=== PATIENT | male | born 1990 | race Caucasian/White ===

== ENCOUNTER 2017-07-21 12:33 | Inpatient (IN) | payer OTHER ==
[~2017-07-21] VITALS: Ht 182.9 cm; Wt 91.8 kg
[2017-07-21] MEDS ORDERED: SODIUM CHLORIDE 0.9% 1000ML 1,000 ML IV STA (13:08)
[2017-07-21] MEDS ORDERED: ONDANSETRON INJ 2 MG/ML 2 ML VIAL IV STA (13:26)
[2017-07-21 13:28] LABS: BASO % 0.2 %; BASO ABS # 0.02 K/uL (0-0.2); EOS % 0.2 %; EOS ABS # 0.03 K/uL (0-0.5); HEMATOCRIT 43.9 % (42-52); HEMOGLOBIN 15.8 g/dL (14.0-18.0); IG# 0.03 K/uL (0.00-0.02); LYMPH % 8.8 %; LYMPH ABS # 1.14 K/uL (1.2-3.4); MEAN CORPUSCULAR HEMOGLOBIN 27.7 pg (25-34); MEAN PLATELET VOLUME 8.8 fL (7.4-10.4); MONO ABS # 0.39 K/uL (0.11-0.59); NEUT % 87.6 %; NEUT ABS # 11.31 K/uL (1.4-6.5); PLATELET COUNT 240 K/uL (130-400); RED CELL DISTRIBUTION WIDTH CV 12.7 % (11.5-14.5); RED CELL DISTRIBUTION WIDTH SD 35.3 fL (36.4-46.3); WHITE BLOOD COUNT 12.92 K/uL (4.8-10.8)
--- NOTE | 2017-07-21 13:33 | EMERGENCY ROOM VISIT NOTE ---
History Report prepared by Nelida: Lindsey Barry Under the Supervision of: Dr. Kira Woodard M.D. First contact with patient: 13:08 Chief Complaint: SEIZURE Stated Complaint: SEIZURE Nursing Triage Summary: pt reports since thursday he has had fever. pt reports last night he felt dizzy. today pt reports he felt nauseated and continued dizziness. pt had witness seizure today lasting approx 30 seconds. pt reports hx of hydrocephalus with vp customer development shunt placed 2005. History of Present Illness The patient is a 26 year old male who presents to the Emergency Room following a seizure/syncopal episode that occurred shortly prior to arrival. The patient' s friend at bedside described the episode as the patient curling into a ball from a seated position and getting "really tight." There was no sporadic shaking. The friend estimates the episode lasted 30-60 seconds, and note that he started talking coherently about 1 minute after the episode resolved. The patient does not remember this episode at all. He is currently nauseous but has not vomited. The patient notes that he has been having fevers and headaches for the past week. 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 The syncopal episode occurred shortly after. 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 A total of 10 systems reviewed and were otherwise negative. Past Medical & Surgical Medical Problems: (1) Hypertensive emergency Hx of hydrocephalus with INSTRUMENT TECHNOLOGIST Shunt. Family History None discussed. Social History Smoking Status: Never Smoker Marital Status: single Housing Status: lives with friends Occupation Status: [employer] Current/Historical Medications Scheduled [Tylenol Caffene], 3 TABS PO UD Scheduled PRN Ibuprofen (Motrin), 400 MG PO Q6H PRN for Pain Allergies Coded Allergies: No Known Allergies (Unverified , 07/21/17) Physical Exam Vital Signs Date Time Temp Pulse Resp B/P (MAP) Pulse Ox O2 Delivery O2 Flow Rate FiO2 07/21/17 16:15 81 24 162/95 Room Air 07/21/17 14:19 85 18 175/128 100 Room Air 07/21/17 13:51 88 18 185/130 99 Room Air 07/21/17 12:42 99 Room Air 07/21/17 12:40 72 07/21/17 12:40 36.6 73 20 171/126 100 Room Air Physical Exam Vital signs reviewed. General: Well-appearing, anxious, 26 yo male, in no significant distress. HEENT: No scleral icterus, PERRLA, neck supple. Atraumatic. No meningeal signs. Cardiovascular: Regular rate and rhythm, no extra sounds. Pulmonary: Clear to auscultation bilaterally, normal work of breathing. Abdomen: Soft, nontender, nondistended, positive bowel sounds. Musculoskeletal: Atraumatic, no peripheral edema. Neurologic: Patient awake alert and oriented x 3, full strength in all 4 extremities. Cranial nerves 2 through 12 grossly intact. Skin: Warm, dry, no rash Medical Decision & Procedures ER Provider Diagnostic Interpretation: Radiology results as stated below per my review and radiologist interpretation: CHEST ONE VIEW PORTABLE CLINICAL HISTORY: Seizure, INSTRUMENT TECHNOLOGIST shunt COMPARISON STUDY: No previous studies for comparison. FINDINGS: Lung volumes are normal. No pneumothorax or pleural effusion is noted. Lungs are clear. Cardiac size is normal. Mediastinal contours are normal. There is no evidence for pulmonary edema. No INSTRUMENT TECHNOLOGIST shunt catheter is identified within the chest by radiography. IMPRESSION: 1. No acute cardiopulmonary findings. 2. No INSTRUMENT TECHNOLOGIST shunt catheter projecting over the chest. Electronically signed by: Bebeto Cyr M.D. 07/21/2017 1:38 PM Dictated Date/Time: 07/21/2017 1:[address] SCAN OF THE BRAIN WITHOUT IV CONTRAST CLINICAL HISTORY: Seizure. Ventricular shunt. COMPARISON STUDY: No priors. TECHNIQUE: Unenhanced axial CT scan of the brain is performed from the vertex to the skull base. A dose lowering technique was utilized adhering to the principles of ALARA. CT DOSE: 614.27 mGy.cm FINDINGS: Brain parenchyma: A left frontal approach ventricular catheter terminates in the frontal horn of the left lateral ventricle. The brain parenchyma is otherwise normal in appearance. There is no hemorrhage, mass effect, or evidence of acute territorial ischemia by CT criteria. Potter-white matter is preserved. No extra-axial fluid collection is seen. Ventricles, sulci, cisterns: Normal in configuration. Mild asymmetry of the the lateral ventricles is of doubtful significance. Intracranial vasculature: The visualized intracranial vasculature at the skull base is normal in appearance. Calvarium: There is a left frontal january hole. No destructive calvarial lesion is seen. Sinuses and mastoids: The visualized paranasal sinuses are clear. The mastoid air cells are well pneumatized. Orbits: The bony orbits are grossly intact. IMPRESSION: 1. A left frontal approach ventriculostomy catheter terminates in the frontal horn of the left lateral ventricle. There is no hydrocephalus. 2. There is no hemorrhage, mass effect, or evidence of acute territorial ischemia by CT criteria. Electronically signed by: Ramiro Urban M.D. 07/21/2017 1:48 PM Dictated Date/Time: 07/21/2017 1:45 PM Laboratory Results Test 07/21/17 13:19 07/21/17 14:14 07/21/17 14:39 07/21/17 16:15 Direct Bilirubin 0.1 mg/dl (0-0.2) Total Creatine Kinase 153 U/L (39-308) Thyroid Stimulating Hormone (TSH) 1.860 uIu/ml (0.300-4.500) Salicylates Level < 1.7 mg/dl (2.8-20) Ethyl Alcohol mg/dL < 3.0 mg/dl (0-3) Urine Color YELLOW Urine Appearance CLEAR (CLEAR) Urine pH 7.5 (4.5-7.5) Urine Specific Allen 1.013 (1.000-1.030) Urine Protein TRACE (NEG) Urine Glucose (UA) NEG (NEG) Urine Ketones 2+ (NEG) Urine Occult Blood NEG (NEG) Urine Nitrite NEG (NEG) Urine Bilirubin NEG (NEG) Urine Urobilinogen NEG (NEG) Urine Leukocyte Esterase NEG (NEG) Urine WBC (Auto) 0 /hpf (0-5) Urine RBC (Auto) 0-4 /hpf (0-4) Urine Hyaline Casts (Auto) 0 /lpf (0-5) Urine Epithelial Cells (Auto) 5-10 /lpf (0-5) Urine Bacteria (Auto) NEG (NEG) Urine Opiates Screen NEG (NEG) Urine Methadone, Qualitative NEG (NEG) Urine Barbiturates NEG (NEG) Urine Phencyclidine (PCP) Level NEG (NEG) Ur Amphetamine/Methamphetamine NEG (NEG) MDMA (Ecstasy) Screen NEG (NEG) Urine Benzodiazepines Screen NEG (NEG) Urine Cocaine Metabolite NEG (NEG) Urine Marijuana (THC) NEG (NEG) CSF Color COLORLESS CSF Appearance CLEAR CSF WBC 4 /uL (0-5) CSF RBC 52 /uL (0) CSF Xanthrochromic NO XANTHOCHROMIA CSF Cell Count Tube # 3 CSF Chemistry Tube # 2 CSF Glucose 55 mg/dl (40-70) CSF Total Protein 87.8 mg/dl (15.0-45.0) Date/Time Source Procedure Growth Status 07/21/17 16:15 Cerebral Spinal Fluid Gram Stain - Final Complete 07/21/17 16:15 Cerebral Spinal Fluid CSF Culture - Final NO GROWTH Complete Laboratory results per my review. Medications Administered Medications (Trade) Dose Ordered Sig/Griselda Route Start Time Stop Time Status Last Admin Dose Admin Sodium Chloride 1,000 ml @ 200 mls/hr Q5H STAT IV 07/21/17 13:08 07/21/17 18:07 DC 07/21/17 13:51 200 MLS/HR Promethazine HCl 12.5 mg/Sodium Chloride 50.5 ml @ 204 mls/hr NOW STAT IV 07/21/17 13:36 07/21/17 13:50 DC 07/21/17 13:50 204 MLS/HR Potassium Chloride (Klor-Con M10) 40 meq NOW STAT PO 07/21/17 14:01 07/21/17 14:02 DC 07/21/17 14:19 40 MEQ Hydralazine HCl (HydrALAZINE INJ) 10 mg NOW STAT IV. 07/21/17 14:03 07/21/17 14:04 DC 07/21/17 14:18 10 MG Promethazine HCl 12.5 mg/Sodium Chloride 50.5 ml @ 204 mls/hr NOW STAT IV 07/21/17 14:40 07/21/17 14:54 DC 07/21/17 15:00 204 MLS/HR Diphenhydramine HCl (Benadryl Inj) 25 mg NOW STAT IV 07/21/17 14:40 07/21/17 14:42 DC 07/21/17 14:59 25 MG Sodium Chloride 1,000 ml @ 500 mls/hr Q2H ONCE IV 07/21/17 15:30 07/21/17 17:29 DC 07/21/17 16:42 500 MLS/HR Lorazepam (Ativan Inj) 1 mg NOW STAT IV 07/21/17 16:02 07/21/17 16:10 DC 07/21/17 16:02 1 MG ECG Per My Interpretation Indication: syncope Rate (beats per minute): 80 Rhythm: normal sinus Findings: no acute ischemic change, no ectopy, other (QTC is 482) ED Course 1322: Past medical records reviewed. The patient was evaluated in room C12B. A complete history and physical examination was performed. 1308: Ordered Sodium Chloride 1000 mL @ 200 mL/hr IV. 1326: Ordered Zofran 4 mg IV. 1336: Ordered Promethazine HCl 50.5 mL @ 204 mL/hr IV. 1401: Ordered Potassium Chloride 40 meq PO. 1403: Ordered Hydralazine HCl 10 mg IV. Medical Decision Differential diagnosis: Etiologies such as vasovagal event, infection, hypoglycemia, electrolyte abnormalities, cardiac sources, intracerebral event, toxicologic, neurologic, as well as others were entertained. This pt was evaluated and appeared to be anxious and noted to be hypertensive. Pt c/o nausea and was given IV phenergan 12.5 mg. IVF were initiated. Pt was given hydralazine for HTN, IV phenergan for continued nausea. IV benadryl was administered for anxiolytic. Po potassium was ordered. Lab work and CT head are unrevealing. Pt CXR is clear. Episode today is questionable for seizure activity. The HTN is concerning. 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 Case was d/w the hospitalist service. Dr Avila of the hospitalist service will evaluate for further management. Blood Pressure Screening Patient's blood pressure: Elevated blood pressure Referred to hospitalist Impression Primary Impression: Seizure-like activity Additional Impressions: Hypertensive urgency INSTRUMENT TECHNOLOGIST (ventriculoperitoneal) shunt status Hypokalemia Critical Care I have personally spent greater than 35 minutes of critical care time in the direct management of this patient. This includes bedside care, interpretation of diagnostic studies, and testing, discussion with consultants, patient, and family members, and other required patient management activities. This 35 minutes is in excess of all separately billable procedures. Scribe Attestation The scribe's documentation has been prepared under my direction and personally reviewed by me in its entirety. I confirm that the note above accurately reflects all work, treatment, procedures, and medical decision making performed by me. Departure Information Patient Instructions [facility] Problem Qualifiers
[2017-07-21] MEDS ORDERED: PROMETHAZINE HCL INJ 12.5 MG in SODIUM CHLORIDE 0.9% 50ML 50 ML IV STA ×2 (13:36→14:40)
--- NOTE | 2017-07-21 13:39 | DIAGNOSTIC IMAGING REPORT ---
CHEST ONE VIEW PORTABLE CLINICAL HISTORY: Seizure, MEDICAL BILLING REPRESENTATIVE shunt COMPARISON STUDY: No previous studies for comparison. FINDINGS: Lung volumes are normal. No pneumothorax or pleural effusion is noted. Lungs are clear. Cardiac size is normal. Mediastinal contours are normal. There is no evidence for pulmonary edema. No MEDICAL BILLING REPRESENTATIVE shunt catheter is identified within the chest by radiography. IMPRESSION: 1. No acute cardiopulmonary findings. 2. No MEDICAL BILLING REPRESENTATIVE shunt catheter projecting over the chest. Electronically signed by: Bebeto Cyr M.D. 07/21/2017 1:38 PM Dictated Date/Time: 07/21/2017 1:36 PM
[2017-07-21 13:46] LABS: ALBUMIN 4.8 gm/dl (3.4-5.0); CREATININE 1.35 mg/dl (0.60-1.40)
--- NOTE | 2017-07-21 13:50 | DIAGNOSTIC IMAGING REPORT ---
CT SCAN OF THE BRAIN WITHOUT IV CONTRAST CLINICAL HISTORY: Seizure. Ventricular shunt. COMPARISON STUDY: No priors. TECHNIQUE: Unenhanced axial CT scan of the brain is performed from the vertex to the skull base. A dose lowering technique was utilized adhering to the principles of ALARA. CT DOSE: 614.27 mGy.cm FINDINGS: Brain parenchyma: A left frontal approach ventricular catheter terminates in the frontal horn of the left lateral ventricle. The brain parenchyma is otherwise normal in appearance. There is no hemorrhage, mass effect, or evidence of acute territorial ischemia by CT criteria. Potter-white matter is preserved. No extra-axial fluid collection is seen. Ventricles, sulci, cisterns: Normal in configuration. Mild asymmetry of the the lateral ventricles is of doubtful significance. Intracranial vasculature: The visualized intracranial vasculature at the skull base is normal in appearance. Calvarium: There is a left frontal january hole. No destructive calvarial lesion is seen. Sinuses and mastoids: The visualized paranasal sinuses are clear. The mastoid air cells are well pneumatized. Orbits: The bony orbits are grossly intact. IMPRESSION: 1. A left frontal approach ventriculostomy catheter terminates in the frontal horn of the left lateral ventricle. There is no hydrocephalus. 2. There is no hemorrhage, mass effect, or evidence of acute territorial ischemia by CT criteria. Electronically signed by: Ramiro Urban M.D. 07/21/2017 1:48 PM Dictated Date/Time: 07/21/2017 1:45 PM
[2017-07-21 13:57] LABS: TOTAL PROTEIN 8.7 gm/dl (6.4-8.2)
[2017-07-21] MEDS ORDERED: POTASSIUM CHLORIDE 10 MEQ TABCR PO STA (14:01)
[2017-07-21] MEDS ORDERED: HydrALAZINE HCL 20 MG/ML VIAL IV. STA (14:03)
[2017-07-21] MEDS ORDERED: [UNRECOGNIZED DRUG - OTHER] PO (14:18)
[2017-07-21] MEDS ORDERED: IBUP-1459 PO (14:18)
[2017-07-21] MEDS ORDERED: DiphenhydrAMINE HCL 50 MG/ML VIAL IV STA (14:40)
--- NOTE | 2017-07-21 15:06 | History and Physical ---
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 He has been feeling generally unwell with fever, chills, headache, mild neck pain, nausea, cough, nasal congestion and mild diarrhea for the past 3-4 days. He has been taking multiple over the counter cold and flu remedies during this time and admits to "probably taking too much" - these included DayQuil (acetaminophen, dextromethorphan and phenylephrine) and a mixture of caffeine, acetaminophen, aspirin and diphenhydramine. He admits to taking 75mg of diphenhydramine and x4 65mg of caffeine today but is unsure exactly how much he has taken of what over the past 3-4 days. 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 He saw him again after about an hour on another bench having not moved far and the patient had been vomiting. He offered to take him to [facility] but the patient could not walk to get there. He sat back down and then had a seizure-like activity lasting for 30-60 seconds. The friend describes this as flexion contractures of his upper and lower limb and curling up in a ball on the bench. He called 911 and laid the patient down on his side. He started talking coherently around 30-60 seconds after this. 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 He thinks he has had around 11 operations in total. The last one was in [address] Stephens at [facility]. He has not had any follow up since then. He reports having similar symptoms once sometime in [id number] when he was hospitalized for dehydration. In the ER he had a CT head which did not show any hydrocephalus. He has a mild WBC elevated. No objective fever. He nausea was treated with Zofran, Phenergan and diphenhydramine (excessive anti-histamine taken was not known at that time) . He was given NSS 200 MLS/HR for dehydration. He had an elevated blood pressure therefore referred as hypertensive urgency, treated with hydralazine 10mg IV in the ER. He currently feels slight numbness on the right side of his face. He feels like his tongue is tingling all over and he is slurring speech. He notes bright light in his peripheral vision worse on left eye than right. Past Medical/Surgical History PMHx Congenital hydrocephalus ventricular shunt Social History Smoking Status: Never Smoker Smokeless Tobacco Use: No Alcohol Use: none Drug Use: none Marital Status: single Allergies Coded Allergies: No Known Allergies (Unverified , 07/21/17) Home Medications Scheduled [Tylenol Caffene], 3 TABS PO UD Scheduled PRN Ibuprofen (Motrin), 400 MG PO Q6H PRN for Pain Review of Systems All systems reviewed and otherwise negative other than HPI Physical Exam Vital Signs Date Time Temp Pulse Resp B/P (MAP) Pulse Ox O2 Delivery O2 Flow Rate FiO2 07/21/17 14:19 85 18 175/128 100 Room Air 07/21/17 13:51 88 18 185/130 99 Room Air 07/21/17 12:42 99 Room Air 07/21/17 12:40 72 07/21/17 12:40 36.6 73 20 171/126 100 Room Air General Appearance: + moderate distress (agitated then falls asleep easily multiple times during the conversation) Head: normocephalic, atraumatic, + pertinent finding (left sided CLOTH DESIZING RANGE TENDER shunt noted ) Eyes: PERRL, EOMI ENT: + pertinent finding (dry mucus membranes) Neck: supple, no JVD, trachea midline Respiratory/Chest: lungs clear, normal breath sounds, no respiratory distress, no accessory muscle use Cardiovascular: regular rate, rhythm, no edema, no murmur, normal peripheral pulses Abdomen/GI: normal bowel sounds, non tender, soft Back: no CVA tenderness Extremities/Musculoskelatal: no calf tenderness, normal capillary refill, no pedal edema, normal range of motion Neurologic/Psych: alert (but drowsy and falling alseep multiple times throughout the conversation), normal reflexes (biceps and knee), oriented x 3, + abnormal filler shredder helper II-XII (subjective numbness on right V1 distribution otherwise unremarkable but limited examination due to drowsiness), + motor weakness ( bilateral finger adduction, thumb abduction/opposition 4/5 otherwise 5/5 upper and lower limb power), + sensory deficit (right side of face in V1 distribution) , + pertinent finding (limited examination due to focus of the patient, speech examination is normal) Skin: no rash, + diaphoresis (flushing of his face and shoulders) Lymphatic: no adenopathy Diagnostics Laboratory Results Results Past 24 Hours Test 07/21/17 13:19 07/21/17 14:14 07/21/17 14:39 Range/Units White Blood Count 12.92 4.8-10.8 K/uL Red Blood Count 5.70 4.7-6.1 M/uL Hemoglobin 15.8 14.0-18.0 g/dL Hematocrit 43.9 42-52 % Mean Corpuscular Volume 77.0 80-100 fL Mean Corpuscular Hemoglobin 27.7 25-34 pg Mean Corpuscular Hemoglobin Concent 36.0 32-36 g/dl Platelet Count 240 130-400 K/uL Mean Platelet Volume 8.8 7.4-10.4 fL Neutrophils (%) (Auto) 87.6 % Lymphocytes (%) (Auto) 8.8 % Monocytes (%) (Auto) 3.0 % Eosinophils (%) (Auto) 0.2 % Basophils (%) (Auto) 0.2 % Neutrophils # (Auto) 11.31 1.4-6.5 K/uL Lymphocytes # (Auto) 1.14 1.2-3.4 K/uL Monocytes # (Auto) 0.39 0.11-0.59 K/uL Eosinophils # (Auto) 0.03 0-0.5 K/uL Basophils # (Auto) 0.02 0-0.2 K/uL RDW Standard Deviation 35.3 36.4-46.3 fL RDW Coefficient of Variation 12.7 11.5-14.5 % Immature Granulocyte % (Auto) 0.2 % Immature Granulocyte # (Auto) 0.03 0.00-0.02 K/uL Sodium Level 136 136-145 mmol/L Potassium Level 3.0 3.5-5.1 mmol/L Chloride Level 103 98-107 mmol/L Carbon Dioxide Level 23 21-32 mmol/L Anion Gap 9.0 3-11 mmol/L Blood Urea Nitrogen 14 7-18 mg/dl Creatinine 1.35 0.60-1.40 mg/dl Est Creatinine Clear Calc Drug Dose 90.2 ml/min Estimated GFR () 82.8 Estimated GFR (Non- 71.4 BUN/Creatinine Ratio 10.4 10-20 Random Glucose 112 70-99 mg/dl Calcium Level 9.0 8.5-10.1 mg/dl Magnesium Level 2.1 1.8-2.4 mg/dl Total Bilirubin 0.8 0.2-1 mg/dl Direct Bilirubin 0.1 0-0.2 mg/dl Aspartate Amino Transf (AST/SGOT) 23 15-37 U/L Alanine Aminotransferase (ALT/SGPT) 43 12-78 U/L Alkaline Phosphatase 96 45-117 U/L Total Creatine Kinase 153 39-308 U/L Total Protein 8.7 6.4-8.2 gm/dl Albumin 4.8 3.4-5.0 gm/dl Thyroid Stimulating Hormone (TSH) 1.860 0.300-4.500 uIu/ml Salicylates Level < 1.7 2.8-20 mg/dl Acetaminophen Level < 2 10-30 ug/ml Microbiology Results 07/21/17 Blood Culture, Received Pending 07/21/17 Blood Culture, Received Pending Diagnostic Radiology CHEST ONE VIEW PORTABLE CLINICAL HISTORY: Seizure, CLOTH DESIZING RANGE TENDER shunt COMPARISON STUDY: No previous studies for comparison. FINDINGS: Lung volumes are normal. No pneumothorax or pleural effusion is noted. Lungs are clear. Cardiac size is normal. Mediastinal contours are normal. There is no evidence for pulmonary edema. No CLOTH DESIZING RANGE TENDER shunt catheter is identified within the chest by radiography. IMPRESSION: 1. No acute cardiopulmonary findings. 2. No CLOTH DESIZING RANGE TENDER shunt catheter projecting over the chest. Electronically signed by: Bebeto Cyr M.D. 07/21/2017 1:38 PM Dictated Date/Time: 07/21/2017 1:[address] SCAN OF THE BRAIN WITHOUT IV CONTRAST CLINICAL HISTORY: Seizure. Ventricular shunt. COMPARISON STUDY: No priors. TECHNIQUE: Unenhanced axial CT scan of the brain is performed from the vertex to the skull base. A dose lowering technique was utilized adhering to the principles of ALARA. CT DOSE: 614.27 mGy.cm FINDINGS: Brain parenchyma: A left frontal approach ventricular catheter terminates in the frontal horn of the left lateral ventricle. The brain parenchyma is otherwise normal in appearance. There is no hemorrhage, mass effect, or evidence of acute territorial ischemia by CT criteria. Potter-white matter is preserved. No extra-axial fluid collection is seen. Ventricles, sulci, cisterns: Normal in configuration. Mild asymmetry of the the lateral ventricles is of doubtful significance. Intracranial vasculature: The visualized intracranial vasculature at the skull base is normal in appearance. Calvarium: There is a left frontal january hole. No destructive calvarial lesion is seen. Sinuses and mastoids: The visualized paranasal sinuses are clear. The mastoid air cells are well pneumatized. Orbits: The bony orbits are grossly intact. IMPRESSION: 1. A left frontal approach ventriculostomy catheter terminates in the frontal horn of the left lateral ventricle. There is no hydrocephalus. 2. There is no hemorrhage, mass effect, or evidence of acute territorial ischemia by CT criteria. Electronically signed by: Ramiro Urban M.D. 07/21/2017 1:48 PM Dictated Date/Time: 07/21/2017 1:45 PM EKG Normal sinus rhythm Prolonged QT Abnormal ECG No previous ECGs available Confirmed by MAGDALENO NELSON ([id number]) on 07/21/2017 1:51:09 PM Impression Assessment and Plan 26 year old male with seizure like activity, some focal neurology signs (see examination) and hypertension after taking multiple OTC medications for the past 3-4 days. Lumbar puncture was performed in the ER and Ativan was given for agitation before this. His blood pressure improved remarkably after ativan was given and he was much less agitated. Seizure-like activity - suspected due to below - EEG - MRI brain combo - Consult neurology - seizure precautions - Ativan for further seizure activity - unlikely related to his prior shunt given no hydrocephalus Subjective fever, headache, neck stiffness, change in acute mental state, mildly elevated WBC - rule out meningitis/subarachnoid, blood cultures and lumbar puncture performed Possible Hypertensive emergency/encephalopathy - vast improvement after ativan given in the ER therefore suspect caffeine, diphenhydramine overdose mixed with anxiety Suspected multiple OTC drug overdose - unknown quantity of caffeine, diphenhydramine, acetaminophen, phenylephrine, dextromethorphan taken in OTC medication for nasal congestion over the past 3-4 days. Took 260mg of caffeine this morning. - possible cause of agitation and hypertension given large improvement when ativan was given - continue to use Ativan for agitation VTE Prophylaxis - TEDs - chemical contraindicated due to lumbar puncture and young age Code - Full Disposition - admission to telemetry I personally interviewed and examined the patient. I agree with history of present illness and physical exam mentioned above, I also performed my own history taking and examination. Past medical history and review of system has been obtained by myself I reviewed all pertinent labs and studies Reviewed current medications I discussed and formulated of the assessment and plan mentioned above. Please refer to the Summary mentioned below. 26 years old man with past medical history of congenital hydrocephalus when he was 6 months old status post CLOTH DESIZING RANGE TENDER shunt and multiple neurologic surgeries throughout his life, last was in 2005. Patient was in his regular state of health until he developed upper respiratory tract infection the last few days. He was taking large amounts of over-the- counter medications, including Tylenol/caffeine/aspirin/diphenhydramine. Today he took 75 mg of diphenhydramine together with 1000 mg of Tylenol and 1000 mg of aspirin and 260 mg of caffeine. 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 He had multiple episodes of vomiting. As per his friend he became unresponsive for about 30 seconds in a position but no epxaz-[id number] activities.. Patient presented to the ED and because of his upper respiratory tract infection and recent history of subjective fever lumbar puncture was done and he had only 4 white blood cells, the abnormal isolated finding was elevated protein of 87 which can be secondary to inflammatory condition. But in the setting of normal physical exam, no photophobia and no neck stiffness no meningeal meningitis signs will not initiate any antibiotics or antiviral therapy until patient is examined by neurologist. Patient received Ativan and significantly improved slowly together with IV fluid hydration. Patient will be placed on seizure precaution Neurologist was consulted Hold usej-ebr-[id number] medications CT head showed previous surgical changes no brain edema or hydrocephaly. MRI with and without contrast was ordered, EEG was ordered and neurology was consulted General Appearance: not in acute distress Eyes: normal Sclerae, extraocular muscle intact ENT: hearing grossly normal Neck: supple Respiratory/Chest: normal air entry bilateral ,no respiratory distress, no accessory muscle use Cardiovascular: regular rate, rhythm, no murmur Abdomen: non tender, soft, no masses Extremities: no edema musculoskeletal: no significant swelling or inflammation in any joint Neurologic/Psychiatric: Initially was slightly lethargic but after receiving the Ativan and IV fluid hydration currently is awake oriented times place and person moves all extremities sensation intact cranial nerves II-12 appear to be intact Skin: normal color, warm/dry, no rash Erik Avila MD, [facility] hospitalist group Resuscitation Status Full VTE Prophylaxis Will order VTE Prophylaxis: Yes (TEDs) Additional Copies To [facility] Resident Tracking Resident Involvement: Resident Care Provided Care Provided: Adult Hospital Medicine
[2017-07-21] MEDS ORDERED: SODIUM CHLORIDE 0.9% 1000ML 1,000 ML IV ONE (15:30)
[2017-07-21] MEDS ORDERED: LORAZEPAM 2 MG/ML 1 ML VIAL IV STA (16:02)
[2017-07-21] MEDS ORDERED: LORAZEPAM 2 MG/ML 1 ML VIAL ONE (16:02)
[2017-07-21] MEDS ORDERED: LIDOCAINE HCL 1% 20 ML VIAL ONE (16:08)
[2017-07-21] MEDS ORDERED: ONDANSETRON INJ 2 MG/ML 2 ML VIAL IV PRN (16:45)
[2017-07-21] MEDS ORDERED: ACETAMINOPHEN 325 MG TAB PO PRN (16:45)
[2017-07-21 16:56] VITALS: Ht 182.9 cm; Wt 91.8 kg
[2017-07-21] MEDS ORDERED: LORAZEPAM 2 MG/ML 1 ML VIAL IV PRN (17:00)
[2017-07-21 17:24] LABS: CSF GLUCOSE 55 mg/dl (40-70); CSF TOTAL PROTEIN 87.8 mg/dl (15.0-45.0)
[2017-07-21 18:15] VITALS: BP 162/121; PULSE 95; TEMP 36.6; O2SAT 99
--- NOTE | 2017-07-21 19:31 | Procedure Note ---
Procedure Note Procedure Date Jul 21, 2017. Procedure Description Procedure Name: Lumbar Puncture Procedure time out: side/site verified, patient ID confirmed, correct procedure Consent obtained: written (performed by Dr Woodard) Time of procedure: 17:00 Performed by: resident (Dr Walters observed) Indications: diagnostic Contraindications: none Description: The patient was placed in the left lateral decubitus position in a semi- position with help from the nursing staff. The area was cleansed and draped in usual sterile fashion. 2ml 1% lidocaine was used anesthetize the surrounding skin area. A 20-gauge 3.5-inch spinal needle was placed in the L3-L4 interspace. Clear cerebral spinal fluid was obtained. Four tubes were filled with 2-3 mL of CSF. These were sent for the usual tests. Dr Woodard was present for the entire procedure Estimated Blood Loss: 0 ml Complications: none Patient tolerated procedure: well Post-procedure vital signs: reviewed and stable
--- NOTE | 2017-07-21 19:52 | Progress Note ---
Progress Note Date of Service Jul 21, 2017. Progress Note Discussed patient with patient's father Jose Angel with the patient's permission ( phone number [phone]). 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 As part of this he notes that the patient's ventricles generally do not move significantly when the patient has hydrocephalus due to the multiple previous surgeries therefore he may have hydrocephalus with significant hydrocephalus on the CT scan. Given this history hydrocephalus is still possible especially as this may have been treated with the lumbar puncture as he improved after this (however Ativan was also given). Unfortunately I did not take an opening pressure as the CT scan did not show hydrocephalus.
[2017-07-21 20:00] VITALS: O2SAT 99
[2017-07-21] MEDS: LACTATED RINGER'S 1000ML 1,000 ML IV SCH (20:01)
[2017-07-21 20:05] VITALS: BP 155/89; PULSE 116
[2017-07-21 23:27] LABS: INFLUENZA A PCR Neg for Influ A (NEG); INFLUENZA B PCR Neg for Influ B (NEG)
[2017-07-21 23:59] VITALS: O2SAT 99
[2017-07-22] VITALS (9 sets, daily range): BP systolic 139–164; BP diastolic 68–96; PULSE 75–96; TEMP 36.6–37; O2SAT 96–99
[2017-07-22] MEDS: LACTATED RINGER'S 1000ML 1,000 ML IV SCH ×2 (01:03→05:58)
[2017-07-22 07:45] LABS: BASO % 0.1 %; BASO ABS # 0.01 K/uL (0-0.2); EOS % 0.8 %; HEMATOCRIT 36.2 % (42-52); HEMOGLOBIN 12.8 g/dL (14.0-18.0); IG# 0.04 K/uL (0.00-0.02); LYMPH % 19.9 %; LYMPH ABS # 2.43 K/uL (1.2-3.4); MEAN CELL VOLUME 78.2 fL (80-100); MEAN CORPUSCULAR HEMOGLOBIN 27.6 pg (25-34); MEAN CORPUSCULAR HGB CONC 35.4 g/dl (32-36); MEAN PLATELET VOLUME 8.7 fL (7.4-10.4); MONO % 7.2 %; MONO ABS # 0.88 K/uL (0.11-0.59); NEUT % 71.7 %; NEUT ABS # 8.74 K/uL (1.4-6.5); PLATELET COUNT 201 K/uL (130-400); RED CELL DISTRIBUTION WIDTH SD 37.2 fL (36.4-46.3)
--- NOTE | 2017-07-22 07:47 | Family Medicine Progress Note ---
Progress Note Date of Service Jul 22, 2017. Subjective Pt evaluation today including: conversation w/ patient, physical exam, chart review, lab review, review of studies, conversation w/ mainframe consultant, review of inpatient medication list Patient feeling well this morning. Apart from ongoing sinus congestion, he denies fevers/chills, headache, visual changes, sensory deficits/paresthesias, neck stiffness, weakness. He has not had any further seizure activity. He is not hungry, but not feeling nauseous. He is ambulating to and from the washroom without difficulty. He has no issues with voiding. ROS is unremarkable except as noted above. Objective Vital Signs Date Time Temp Pulse Resp B/P (MAP) Pulse Ox O2 Delivery O2 Flow Rate FiO2 07/22/17 07:31 37.0 81 16 139/80 (99) 99 Room Air 07/22/17 04:00 Room Air 07/22/17 03:49 37.0 96 18 155/93 (113) 98 07/22/17 00:00 36.6 83 18 157/79 (105) 97 07/21/17 23:59 99 Room Air 07/21/17 20:05 116 155/89 (111) 07/21/17 20:00 99 Room Air 07/21/17 18:15 36.6 95 17 162/121 (135) 99 Room Air 07/21/17 17:54 101 16 152/89 Room Air 07/21/17 17:54 101 16 152/89 07/21/17 16:56 Room Air 07/21/17 16:15 81 24 162/95 Room Air 07/21/17 14:19 85 18 175/128 100 Room Air 07/21/17 13:51 88 18 185/130 99 Room Air 07/21/17 12:42 99 Room Air 07/21/17 12:40 72 07/21/17 12:40 36.6 73 20 171/126 100 Room Air Physical Exam General Appearance: WD/WN, no apparent distress Eyes: normal inspection, PERRL, EOMI, sclerae normal ENT: hearing grossly normal, pharynx normal, + nasal drainage Neck: supple Respiratory/Chest: normal breath sounds, no respiratory distress, no accessory muscle use Cardiovascular: regular rate, rhythm, no edema, no murmur Abdomen: normal bowel sounds, non tender, soft Extremities: no pedal edema, no calf tenderness Neurologic/Psychiatric: credit processor II-XII nml as tested, no motor/sensory deficits, alert, normal mood/affect, oriented x 3 Skin: normal color, warm/dry, no rash Laboratory Results Results Past 24 Hours Test 07/21/17 19:37 07/21/17 21:53 07/21/17 22:10 07/22/17 07:15 Range/Units HIV (1&2) Ab and P24 Ag, 4th Gener NEG NEG Arterial Blood pH 7.43 7.35-7.45 Arterial Blood Partial Pressure CO2 37 35-46 mmHg Arterial Blood Partial Pressure O2 53 80-95 mm/Hg Arterial Blood HCO3 24 19-24 mmol/L Arterial Blood Oxygen Saturation 86.7 90-95 % Arterial Blood Base Excess 0.0 -9-1.8 mEq/L Arterial Blood Gas Delivery ROOM AIR Satnam Test POS POS Procalcitonin < 0.05 0-0.5 ng/ml Acetaminophen Level < 2 10-30 ug/ml Influenza Type A (RT-PCR) Neg for Influ A NEG Influenza Type B (RT-PCR) Neg for Influ B NEG White Blood Count 12.20 4.8-10.8 K/uL Red Blood Count 4.63 4.7-6.1 M/uL Hemoglobin 12.8 14.0-18.0 g/dL Hematocrit 36.2 42-52 % Mean Corpuscular Volume 78.2 80-100 fL Mean Corpuscular Hemoglobin 27.6 25-34 pg Mean Corpuscular Hemoglobin Concent 35.4 32-36 g/dl Platelet Count 201 130-400 K/uL Mean Platelet Volume 8.7 7.4-10.4 fL Neutrophils (%) (Auto) 71.7 % Lymphocytes (%) (Auto) 19.9 % Monocytes (%) (Auto) 7.2 % Eosinophils (%) (Auto) 0.8 % Basophils (%) (Auto) 0.1 % Neutrophils # (Auto) 8.74 1.4-6.5 K/uL Lymphocytes # (Auto) 2.43 1.2-3.4 K/uL Monocytes # (Auto) 0.88 0.11-0.59 K/uL Eosinophils # (Auto) 0.10 0-0.5 K/uL Basophils # (Auto) 0.01 0-0.2 K/uL RDW Standard Deviation 37.2 36.4-46.3 fL RDW Coefficient of Variation 13.0 11.5-14.5 % Immature Granulocyte % (Auto) 0.3 % Immature Granulocyte # (Auto) 0.04 0.00-0.02 K/uL Sodium Level 140 136-145 mmol/L Potassium Level 3.5 3.5-5.1 mmol/L Chloride Level 109 98-107 mmol/L Carbon Dioxide Level 25 21-32 mmol/L Anion Gap 6.0 3-11 mmol/L Blood Urea Nitrogen 9 7-18 mg/dl Creatinine 1.11 0.60-1.40 mg/dl Est Creatinine Clear Calc Drug Dose 109.7 ml/min Estimated GFR () 104.9 Estimated GFR (Non- 90.5 BUN/Creatinine Ratio 8.3 10-20 Random Glucose 103 70-99 mg/dl Lactic Acid Level 0.8 0.4-2.0 mmol/L Calcium Level 8.2 8.5-10.1 mg/dl Magnesium Level 2.0 1.8-2.4 mg/dl Total Bilirubin 0.6 0.2-1 mg/dl Aspartate Amino Transf (AST/SGOT) 9 15-37 U/L Alanine Aminotransferase (ALT/SGPT) 25 12-78 U/L Alkaline Phosphatase 68 45-117 U/L Total Protein 6.3 6.4-8.2 gm/dl Albumin 3.4 3.4-5.0 gm/dl Globulin 2.9 2.5-4.0 gm/dl Albumin/Globulin Ratio 1.2 0.9-2 Results Past 24 Hours Test 07/21/17 19:37 07/21/17 21:53 07/21/17 22:10 07/22/17 07:15 Range/Units HIV (1&2) Ab and P24 Ag, 4th Gener NEG NEG Arterial Blood pH 7.43 7.35-7.45 Arterial Blood Partial Pressure CO2 37 35-46 mmHg Arterial Blood Partial Pressure O2 53 80-95 mm/Hg Arterial Blood HCO3 24 19-24 mmol/L Arterial Blood Oxygen Saturation 86.7 90-95 % Arterial Blood Base Excess 0.0 -9-1.8 mEq/L Arterial Blood Gas Delivery ROOM AIR Satnam Test POS POS Procalcitonin < 0.05 0-0.5 ng/ml Acetaminophen Level < 2 10-30 ug/ml Influenza Type A (RT-PCR) Neg for Influ A NEG Influenza Type B (RT-PCR) Neg for Influ B NEG White Blood Count 12.20 4.8-10.8 K/uL Red Blood Count 4.63 4.7-6.1 M/uL Hemoglobin 12.8 14.0-18.0 g/dL Hematocrit 36.2 42-52 % Mean Corpuscular Volume 78.2 80-100 fL Mean Corpuscular Hemoglobin 27.6 25-34 pg Mean Corpuscular Hemoglobin Concent 35.4 32-36 g/dl Platelet Count 201 130-400 K/uL Mean Platelet Volume 8.7 7.4-10.4 fL Neutrophils (%) (Auto) 71.7 % Lymphocytes (%) (Auto) 19.9 % Monocytes (%) (Auto) 7.2 % Eosinophils (%) (Auto) 0.8 % Basophils (%) (Auto) 0.1 % Neutrophils # (Auto) 8.74 1.4-6.5 K/uL Lymphocytes # (Auto) 2.43 1.2-3.4 K/uL Monocytes # (Auto) 0.88 0.11-0.59 K/uL Eosinophils # (Auto) 0.10 0-0.5 K/uL Basophils # (Auto) 0.01 0-0.2 K/uL RDW Standard Deviation 37.2 36.4-46.3 fL RDW Coefficient of Variation 13.0 11.5-14.5 % Immature Granulocyte % (Auto) 0.3 % Immature Granulocyte # (Auto) 0.04 0.00-0.02 K/uL Sodium Level 140 136-145 mmol/L Potassium Level 3.5 3.5-5.1 mmol/L Chloride Level 109 98-107 mmol/L Carbon Dioxide Level 25 21-32 mmol/L Anion Gap 6.0 3-11 mmol/L Blood Urea Nitrogen 9 7-18 mg/dl Creatinine 1.11 0.60-1.40 mg/dl Est Creatinine Clear Calc Drug Dose 109.7 ml/min Estimated GFR () 104.9 Estimated GFR (Non- 90.5 BUN/Creatinine Ratio 8.3 10-20 Random Glucose 103 70-99 mg/dl Lactic Acid Level 0.8 0.4-2.0 mmol/L Calcium Level 8.2 8.5-10.1 mg/dl Magnesium Level 2.0 1.8-2.4 mg/dl Total Bilirubin 0.6 0.2-1 mg/dl Aspartate Amino Transf (AST/SGOT) 9 15-37 U/L Alanine Aminotransferase (ALT/SGPT) 25 12-78 U/L Alkaline Phosphatase 68 45-117 U/L Total Protein 6.3 6.4-8.2 gm/dl Albumin 3.4 3.4-5.0 gm/dl Globulin 2.9 2.5-4.0 gm/dl Albumin/Globulin Ratio 1.2 0.9-2 Assessment and Plan 26 year old male with seizure like activity, some focal neurology signs on admission and hypertension after taking multiple OTC medications for the past 3- 4 days. Lumbar puncture was performed in the ER and Ativan was given for agitation before this. His blood pressure improved remarkably after Ativan was given and he was much less agitated. Seizure-like activity Neurology consulted, recommendations appreciated. CT head negative. Feel unlikely related to his prior shunt given no hydrocephalus. Tox screen negative. EEG study was normal - Placed on seizure precautions - IV lorazepam PRN recurrent seizure activity - MRI brain requested, but need to confirm shunt compatibility - patient unsure , so called father, who provided patient's neurosurgeon's contact: Dr. Ken Stephens-[phone]. Currently after hours, will need to call tomorrow to confirm. Subjective fever, headache, neck stiffness, change in acute mental state, mildly elevated WBC CXR negative. UA negative. s/p lumbar puncture. Serology for influenza and HIV negative. CSF cytology WNL. CSF staining WNL. - Lower concern for meningitis/encephalitis currently, but will await final results - Blood and CSF cultures pending - HSV, CSF Lyme and CSF VDRL pending Possible hypertensive emergency/encephalopathy - Vast improvement after lorazepam given in the ER therefore suspect caffeine, diphenhydramine overdose mixed with anxiety - Hydralazine PRN SBP >180 Suspected multiple OTC drug overdose - unknown quantity of caffeine, diphenhydramine, acetaminophen, phenylephrine, dextromethorphan taken in OTC medication for nasal congestion over the past 3-4 days. Possible cause of agitation/hypertension/seizure. Peak QTc 498 - most recent QTC 459 - Ativan for agitation VTE Prophylaxis - TEDs - Chemical contraindicated due to lumbar puncture and young age Code - Full Resident Physician Supervision Note: I was present with Dr. Bennett during the history and exam. I discussed the case with the resident and agree with the findings and plan as documented in the note. Any exceptions or clarifications are listed here: At present, patient without complaint other than upper resp congestion. Neurology consult appreciated. Recommend continued observation overnight. Will contact patient's primary neurologist in AM. Would avoid combination OTC cold medications in the future in favor of tylenol or advil and a non-sedating antihistamine such as Claritin. Documented By: Cj Felton Continued [facility] stay due to: other Discharge planning: home Resident Tracking Resident Involvement: Resident Care Provided Care Provided: Adult Hospital Medicine
[2017-07-22 08:01] LABS: ALBUMIN 3.4 gm/dl (3.4-5.0); CALCIUM 8.2 mg/dl (8.5-10.1); CREATININE 1.11 mg/dl (0.60-1.40); POTASSIUM 3.5 mmol/L (3.5-5.1)
[2017-07-22 08:04] LABS: TOTAL PROTEIN 6.3 gm/dl (6.4-8.2)
--- NOTE | 2017-07-22 08:18 | EEG Procedure Note ---
EEG Procedure Note Date of Service Jul 22, 2017. Start / End Times Start Time: 6:45 AM End Time: 7:05 AM Referring Physician Kira Woodard History This is a 26-year-old male who presented with seizure-like activity. EEG for further evaluation of possible seizure etiology. Home Medication List Scheduled [Tylenol Caffene], 3 TABS PO UD Scheduled PRN Ibuprofen (Motrin), 400 MG PO Q6H PRN for Pain Inpatient Medication List Current Inpatient Medications Medications (Trade) Dose Ordered Sig/Griselda Route Start Time Stop Time Status Last Admin Dose Admin Acetaminophen (Tylenol Tab) 650 mg Q4H PRN PO 07/21/17 16:45 08/20/17 16:44 Ondansetron HCl (Zofran Inj) 4 mg Q6H PRN IV 07/21/17 16:45 08/20/17 16:44 Lorazepam (Ativan Inj) 1 mg Q2H PRN IV 07/21/17 17:00 08/20/17 16:59 Lactated Ringer's 1,000 ml @ 200 mls/hr Q5H IV 07/21/17 17:45 08/20/17 17:44 07/22/17 05:58 200 MLS/HR Description This is a 21 electrode EEG with a single channel dedicated to limited EKG. The electrodes were placed in accordance with the International 10-20 system. At the start of this recording the patient was in an awake state. Background was well organized with a moderate amplitude symmetric mix of alpha and beta frequencies. There was a symmetric moderate amplitude well-formed posterior dominant rhythm of 9-10 Hz that was reactive to eye opening and closure. Hyperventilation was not done. Photic stimulation at various frequencies did not produce any abnormalities. Sleep was indicated by vertex waves and symmetric sleep spindles. Interpretation This is a normal awake and asleep routine EEG. There was no electrographic seizures or epileptiform discharges. Clinical Correlation A normal EEG does not rule out seizure or epilepsy if there is a strong clinical suspicion.
--- NOTE | 2017-07-22 09:29 | Neurology Consultation ---
Neurology Consultation Date of Consultation: Jul 22, 2017. Attending Physician: Erik Lorenzo MD Primary Care Physician: [facility] Reason for Consultation: Consultation for new onset seizure History of Present Illness Source: patient, hospital records, friend This is a 26-year-old male who presents after an unresponsive episode concerning for seizure. History was taken from the patient and a friend who witnessed the episode. Patient reports that he had had sick symptoms since Thursday that seemed to slowly be getting worse. He was having intermittent fevers and chills for the past 4 days. Also had a cough and congestion. The day of presentation he was feeling diaphoretic and was noted to be red and flushing. On the day of presentation he also noted having a severe headache as well. He does report having fairly frequent and common headaches when he is under stress, sleep deprived, etc. Reports that headaches related to his shunt tend to be more severe and constant and current headaches did not seem consistent with his headaches associated with shunt malfunction or hydrocephalus in the past. Patient had been taking multiple [id number] cold medications as well. Patient did not have any memory of the unresponsive event. 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 Overall was feeling fairly lousy. Canceled his next class afterwards and was trying to get to the [facility]. 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 He tried to walk him to the [facility] but the patient was not feeling well. He reports at one point while sitting on the bench he became unresponsive curled forward, arms flexed, and everything got really tight. He reports that it appeared that he was not breathing for a period of time. Reported that his eyes are closed. Overall lasted about 30 seconds to 1-1/2 minutes. Afterwards the patient appeared to start breathing more normally. After a minute patient appeared to come around and become more responsive and talked coherently. During the episode this friend did call 911 and they recommended placing the patient on a side which he did do. There was no tongue biting or urinary incontinence. 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 Last revision and check was around . Patient denies any issues with his shunt for hydrocephalus since that time. He reports that he is able to get MRIs and has had MRIs in the past. Reports that the shunt is adjustable and programmable. CT of the head report and images reviewed by myself and unremarkable. Noted that the left lateral ventricle appears to be more decompressed compared to the right likely due to shunt placement. No signs of hydrocephalus or edema. EEG was read by myself this morning and was a normal awake and asleep. Lab work was reviewed. Mild elevation of WBCs at 12. Patient did receive a lumbar puncture and cell count is normal with the exception of elevated protein of 87 which may be just an inflammatory response. Otherwise no signs of meningitis. Flu is negative. HIV is negative. Lyme and HSV is pending. Negative tox screen. CK was within normal limits. TSH was within normal limits. CSF and blood cultures are pending In the emergency room the patient's blood pressure was noted to be elevated which could have been secondary to multiple cold medication use. Highest blood pressure was on initial presentation at 185/130. Patient reports that on initial presentation he did note some nonspecific tingling in his bilateral feet, hands, tongue, and patchy areas of his bilateral face. He reports that this has resolved. He denies any sensory or motor deficits this morning. Denies any visual changes. Reports that he has only may be a very mild start of a headache this morning but otherwise no significant pain or headaches. Reports that he speaking normally. No trouble swallowing. No additional seizure-like activity noted since admission. Patient did report some nausea and vomiting yesterday. Reports that otherwise he is fairly comfortable this morning and feeling much better compared to yesterday. Past Medical/Surgical History Medical Problems: (1) Hypertensive urgency Status: Acute (2) Hypokalemia Status: Acute (3) Seizure-like activity Status: Acute Social History Problems: (1) FURNACE MASON (ventriculoperitoneal) shunt status Status: Acute Congenital hydrocephalus status post FURNACE MASON shunt with last evaluation in 2006. Patient reports no issues since then Family History Patient denies any significant family history. No family history of epilepsy or seizures. 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 Normally independent his activities of daily living. No tobacco use. Occasional to rare alcohol use. No illegal or recreational drug use. Smokeless Tobacco Use: No Alcohol Use: none Drug Use: none Marital Status: single Housing Status: lives with friends Allergies Coded Allergies: No Known Allergies (Unverified , 07/21/17) Current Inpatient Medications Current Inpatient Medications Medications (Trade) Dose Ordered Sig/Griselda Route Start Time Stop Time Status Last Admin Dose Admin Acetaminophen (Tylenol Tab) 650 mg Q4H PRN PO 07/21/17 16:45 08/20/17 16:44 Ondansetron HCl (Zofran Inj) 4 mg Q6H PRN IV 07/21/17 16:45 08/20/17 16:44 Lorazepam (Ativan Inj) 1 mg Q2H PRN IV 07/21/17 17:00 08/20/17 16:59 Lactated Ringer's 1,000 ml @ 200 mls/hr Q5H IV 07/21/17 17:45 08/20/17 17:44 07/22/17 05:58 200 MLS/HR Review of Systems Complete review of systems otherwise negative except for the above-noted in HPI Physical Exam Vital Signs (Past 24 Hrs): Date Time Temp Pulse Resp B/P (MAP) Pulse Ox O2 Delivery O2 Flow Rate FiO2 07/22/17 07:31 37.0 81 16 139/80 (99) 99 Room Air 07/22/17 04:00 Room Air 07/22/17 03:49 37.0 96 18 155/93 (113) 98 07/22/17 00:00 36.6 83 18 157/79 (105) 97 07/21/17 23:59 99 Room Air 07/21/17 20:05 116 155/89 (111) 07/21/17 20:00 99 Room Air 07/21/17 18:15 36.6 95 17 162/121 (135) 99 Room Air 07/21/17 17:54 101 16 152/89 Room Air 07/21/17 17:54 101 16 152/89 07/21/17 16:56 Room Air 07/21/17 16:15 81 24 162/95 Room Air 07/21/17 14:19 85 18 175/128 100 Room Air 07/21/17 13:51 88 18 185/130 99 Room Air 07/21/17 12:42 99 Room Air 07/21/17 12:40 72 07/21/17 12:40 36.6 73 20 171/126 100 Room Air Gen.: Patient is alert and oriented in no acute distress lying in bed Heart: Regular rate and rhythm Extremities: No gross deformities or rashes noted Neurological examination: Mental status: Patient is alert and oriented to person place and time. Able to give his own history. Attention concentration normal for the situation. Remote and recent memory intact Speech is fluent without any dysarthria or aphasia noted Cranial nerves: Funduscopic examination was difficult to visualize, but no papilledema noted. Pupils equally round and reactive to light. Extraocular muscles intact without nystagmus. No facial asymmetry noted. Facial sensation intact. Tongue midline. Good palatal elevation. Good shoulder shrug bilaterally. Hearing grossly intact voice. Strength: 5/5 both proximal and distal in all extremities .Tone is normal. Sensation: Grossly intact to light touch in all extremities Deep tendon reflexes: +2 in bilateral biceps and patellar. Toes are downgoing to plantar stimulation bilaterally Coordination: Patient has good finger to nose without dysmetria. Station within the bed is normal. Laboratory Results Past 24 Hours: 07/22/17 07:15 Red Blood Count 4.63, Mean Corpuscular Volume 78.2, Mean Corpuscular Hemoglobin 27.6, Mean Corpuscular Hemoglobin Concent 35.4, Mean Platelet Volume 8.7, Neutrophils (%) (Auto) 71.7, Lymphocytes (%) (Auto) 19.9, Monocytes (%) (Auto) 7.2, Eosinophils (%) (Auto) 0.8, Basophils (%) (Auto) 0.1, Neutrophils # (Auto) 8.74, Lymphocytes # (Auto) 2.43, Monocytes # (Auto) 0.88, Eosinophils # (Auto) 0.10, Basophils # (Auto) 0.01 07/22/17 07:15 Test 07/21/17 13:19 07/21/17 14:14 07/21/17 14:39 07/21/17 16:15 Direct Bilirubin 0.1 mg/dl (0-0.2) Total Creatine Kinase 153 U/L (39-308) Thyroid Stimulating Hormone (TSH) 1.860 uIu/ml (0.300-4.500) Salicylates Level < 1.7 mg/dl (2.8-20) Ethyl Alcohol mg/dL < 3.0 mg/dl (0-3) Urine Color YELLOW Urine Appearance CLEAR (CLEAR) Urine pH 7.5 (4.5-7.5) Urine Specific [place] 1.013 (1.000-1.030) Urine Protein TRACE (NEG) Urine Glucose (UA) NEG (NEG) Urine Ketones 2+ (NEG) Urine Occult Blood NEG (NEG) Urine Nitrite NEG (NEG) Urine Bilirubin NEG (NEG) Urine Urobilinogen NEG (NEG) Urine Leukocyte Esterase NEG (NEG) Urine WBC (Auto) 0 /hpf (0-5) Urine RBC (Auto) 0-4 /hpf (0-4) Urine Hyaline Casts (Auto) 0 /lpf (0-5) Urine Epithelial Cells (Auto) 5-10 /lpf (0-5) Urine Bacteria (Auto) NEG (NEG) Urine Opiates Screen NEG (NEG) Urine Methadone, Qualitative NEG (NEG) Urine Barbiturates NEG (NEG) Urine Phencyclidine (PCP) Level NEG (NEG) Ur Amphetamine/Methamphetamine NEG (NEG) MDMA (Ecstasy) Screen NEG (NEG) Urine Benzodiazepines Screen NEG (NEG) Urine Cocaine Metabolite NEG (NEG) Urine Marijuana (THC) NEG (NEG) CSF Color COLORLESS CSF Appearance CLEAR CSF WBC 4 /uL (0-5) CSF RBC 52 /uL (0) CSF Xanthrochromic NO XANTHOCHROMIA CSF Cell Count Tube # 3 CSF Chemistry Tube # 2 CSF Glucose 55 mg/dl (40-70) CSF Total Protein 87.8 mg/dl (15.0-45.0) Test 07/21/17 19:37 07/21/17 21:53 07/21/17 22:10 07/22/17 07:15 HIV (1&2) Ab and P24 Ag, 4th Gener NEG (NEG) Arterial Blood pH 7.43 (7.35-7.45) Arterial Blood Partial Pressure CO2 37 mmHg (35-46) Arterial Blood Partial Pressure O2 53 mm/Hg (80-95) Arterial Blood HCO3 24 mmol/L (19-24) Arterial Blood Oxygen Saturation 86.7 % (90-95) Arterial Blood Base Excess 0.0 mEq/L (-9-1.8) Arterial Blood Gas Delivery ROOM AIR Satnam Test POS (POS) Procalcitonin < 0.05 ng/ml (0-0.5) Acetaminophen Level < 2 ug/ml (10-30) Influenza Type A (RT-PCR) Neg for Influ A (NEG) Influenza Type B (RT-PCR) Neg for Influ B (NEG) White Blood Count 12.20 K/uL (4.8-10.8) Red Blood Count 4.63 M/uL (4.7-6.1) Hemoglobin 12.8 g/dL (14.0-18.0) Hematocrit 36.2 % (42-52) Mean Corpuscular Volume 78.2 fL (80-100) Mean Corpuscular Hemoglobin 27.6 pg (25-34) Mean Corpuscular Hemoglobin Concent 35.4 g/dl (32-36) Platelet Count 201 K/uL (130-400) Mean Platelet Volume 8.7 fL (7.4-10.4) Neutrophils (%) (Auto) 71.7 % Lymphocytes (%) (Auto) 19.9 % Monocytes (%) (Auto) 7.2 % Eosinophils (%) (Auto) 0.8 % Basophils (%) (Auto) 0.1 % Neutrophils # (Auto) 8.74 K/uL (1.4-6.5) Lymphocytes # (Auto) 2.43 K/uL (1.2-3.4) Monocytes # (Auto) 0.88 K/uL (0.11-0.59) Eosinophils # (Auto) 0.10 K/uL (0-0.5) Basophils # (Auto) 0.01 K/uL (0-0.2) RDW Standard Deviation 37.2 fL (36.4-46.3) RDW Coefficient of Variation 13.0 % (11.5-14.5) Immature Granulocyte % (Auto) 0.3 % Immature Granulocyte # (Auto) 0.04 K/uL (0.00-0.02) Anion Gap 6.0 mmol/L (3-11) Est Creatinine Clear Calc Drug Dose 109.7 ml/min Estimated GFR () 104.9 Estimated GFR (Non- 90.5 BUN/Creatinine Ratio 8.3 (10-20) Lactic Acid Level 0.8 mmol/L (0.4-2.0) Calcium Level 8.2 mg/dl (8.5-10.1) Magnesium Level 2.0 mg/dl (1.8-2.4) Total Bilirubin 0.6 mg/dl (0.2-1) Aspartate Amino Transf (AST/SGOT) 9 U/L (15-37) Alanine Aminotransferase (ALT/SGPT) 25 U/L (12-78) Alkaline Phosphatase 68 U/L (45-117) Total Protein 6.3 gm/dl (6.4-8.2) Albumin 3.4 gm/dl (3.4-5.0) Globulin 2.9 gm/dl (2.5-4.0) Albumin/Globulin Ratio 1.2 (0.9-2) Imaging As noted above Impression This is a 26-year-old male who presented with an unresponsive episode and tonic posturing concerning for possible seizure. Overall symptoms seem consistent with a viral syndrome. While I cannot 100% say whether the patient had a seizure versus some other physiological response to his viral symptoms, overall descriptions sounds concerning for possible to likely seizure. Patient has never had any seizures in the past, and this one is likely related to current illness and possible cold medication overuse. There is no signs of viral or bacterial meningitis on CSF cell count. I do not think that his symptoms represent any sort of hydrocephalus or shunt malfunction. Plan Ideally would like to get an MRI of the brain to make sure that there is no other structural cause for his unresponsive and seizure-like activity. There could be meningeal enhancement on MRI secondary to recent lumbar puncture. No antiepileptic medications needed for a single seizure-like event. Infectious workup and management per primary team. Thank you for allowing me to participate in this patient's care. If there is any questions or concerns, feel free to call/page me.
[2017-07-22] MEDS ORDERED: HydrALAZINE HCL 20 MG/ML VIAL IV. PRN (17:45)
[2017-07-23 07:15] LABS: HEMATOCRIT 36.4 % (42-52); HEMOGLOBIN 12.6 g/dL (14.0-18.0); MEAN CELL VOLUME 79.3 fL (80-100); MEAN CORPUSCULAR HEMOGLOBIN 27.5 pg (25-34); MEAN CORPUSCULAR HGB CONC 34.6 g/dl (32-36); MEAN PLATELET VOLUME 8.6 fL (7.4-10.4); PLATELET COUNT 186 K/uL (130-400); RED CELL DISTRIBUTION WIDTH CV 12.9 % (11.5-14.5); RED CELL DISTRIBUTION WIDTH SD 37.1 fL (36.4-46.3); WHITE BLOOD COUNT 8.82 K/uL (4.8-10.8)
[2017-07-23 07:47] VITALS: BP 147/77; PULSE 67; TEMP 36.8; O2SAT 98
[2017-07-23 07:49] LABS: CALCIUM 8.3 mg/dl (8.5-10.1); CREATININE 1.03 mg/dl (0.60-1.40); POTASSIUM 3.3 mmol/L (3.5-5.1)
[2017-07-23] MEDS ORDERED: POTASSIUM CHLORIDE 20 MEQ TABCR PO STA (09:06)
--- NOTE | 2017-07-23 13:03 | Discharge Instructions ---
Discharge Instructions Date of Service Jul 23, 2017. 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 Instructions / Follow-Up Instructions / Follow-Up You were seen in hospital with seizure like activity after being sick and taking multiple over the counter medications for a few days prior. Blood tests and tests on fluids from a lumbar puncture were performed. Neurology was consulted. It is felt your symptoms are more likely related to the combination of medications coupled with previous illness, rather than a bacterial infection or seizure, especially as no concerning labs or imaging results were found to date (some labs are still pending) and there has been significant clinical improvement. At time of discharge, no new medications are being prescribed. We recommend abstaining from mixing multiple over the counter medications. You can take regular Tylenol or ibuprofen for discomfort or fevers. An outpatient MRI of the brain is scheduled for August 06, 2017. 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 Follow up with neurology is scheduled after the MRI on August 12. In hospital, your blood pressures were elevated, ranging between 150-160 systolic. This may be a result of you simply feeling sick/unwell. We advise follow up your PCP in 1-2 weeks to re-evaluate blood pressure and discuss management if warranted. If seizure symptoms recur, please call your PCP or neurologist, or return to the emergency department. Thank you for allowing us to participate in your care. Current Hospital Diet Patient's current hospital diet: Regular Diet Discharge Diet Recommended Diet: Regular Diet Procedures Procedures Performed: Lumbar puncture Pending Studies Studies pending at discharge: yes List of pending studies: Final blood cultures (prelimary negative), HSV and lyme serology, CSF Lyme, VDRL, LDH Medical Emergencies . Who to Call and When: Medical Emergencies: If at any time you feel your situation is an emergency, please call 911 immediately. . Non-Emergent Contact Non-Emergency issues call your: Primary Care Provider, Neurologist . . "Provider Documentation" section prepared by Vicki Bennett. . Resident Tracking Resident Involvement: Resident Care Provided Care Provided: Adult [facility]
--- NOTE | 2017-07-23 13:19 | Discharge Summary ---
Discharge Summary Date of Service Jul 23, 2017. Discharge Summary Admission Date: Jul 21, 2017 at 16:45 Discharge Date: Jul 23, 2017 Discharge Disposition: Home Principal Diagnosis: Seizure-like activity Procedures: Lumbar puncture Consultations: Neurology Medication Reconciliation Continued Medications: Ibuprofen (Motrin) 400 Mg Tab 400 MG PO Q6H PRN for Pain [Tylenol Caffene] () 3 TABS PO UD Discharge Exam Patient feeling well this morning. Apart from ongoing sinus congestion, he denies fevers/chills, headache, visual changes, sensory deficits/paresthesias, neck stiffness, weakness. He has not had any further seizure activity. He is tolerating diet. He is ambulating without difficulty. He has no issues with voiding. ROS is unremarkable except as noted above. Physical Exam General Appearance: WD/WN, no apparent distress Eyes: normal inspection, PERRL, EOMI, sclerae normal ENT: hearing grossly normal, pharynx normal, + nasal drainage Neck: supple Respiratory/Chest: normal breath sounds, no respiratory distress, no accessory muscle use Cardiovascular: regular rate, rhythm, no edema, no murmur Abdomen: normal bowel sounds, non tender, soft Extremities: no pedal edema, no calf tenderness Neurologic/Psychiatric: trust administrator II-XII nml as tested, no motor/sensory deficits, alert, normal mood/affect, oriented x 3 Skin: normal color, warm/dry, no rash Hospital Course 26 year old male with ventricular shunt presented with seizure like activity, some focal neurology signs on admission and hypertension after taking multiple OTC medications for the past 3-4 days. Lumbar puncture was performed in the ER and Ativan was given for agitation before this. His blood pressure improved remarkably after Ativan was given and he was much less agitated. Seizure-like activity Neurology consulted. CT head negative. [place] unlikely related to his prior shunt given no hydrocephalus. Tox screen negative. EEG study was normal. There was no further seizures during admission and no further dosing of Ativan required - MRI brain scheduled as outpatient. Faves [facility] will be present for assessment of shunt before and after. Follow up with neurology scheduled after MRI. Subjective fever, headache, neck stiffness, change in acute mental state, mildly elevated WBC CXR negative. UA negative. s/p lumbar puncture. Serology for influenza and HIV negative. CSF cytology and staining WNL. CSF culture negative. Blood cultures negative to date. Lower concern for meningitis/encephalitis. - HSV and lyme serology, CSF Lyme, VDRL, LDH pending on discharge Possible hypertensive emergency/encephalopathy Vast improvement after lorazepam given in the ER therefore suspect caffeine, diphenhydramine overdose mixed with anxiety causing HTN - Advised for PCP follow up to re-evaluate BP upon discharge Suspected multiple OTC drug overdose - unknown quantity of caffeine, diphenhydramine, acetaminophen, phenylephrine, dextromethorphan taken in OTC medication for nasal congestion over the past 3-4 days. Possible cause of agitation/hypertension/seizure. Peak QTc 498 - most recent QTC 459 - Advised not to mix OTC medications. Can use Tylenol or NSAID PRN discomfort or fever Code - Full Resident Physician Supervision Note: I was present with Dr. Bennett during the history and exam. I discussed the case with the resident and agree with the findings and plan as documented in the note. Any exceptions or clarifications are listed here: The patient is without complaints. Extended time today to contact [employer] dental detail representative and coordinate outpatient MRI. Advised patient to avoid multi-symptom OTC products; would recommend Tylenol, ibuprofen, +/- non sedating antihistamine. Documented By: Cj Felton Total Time Spent: Less than 30 minutes This includes examination of the patient, discharge planning, medication reconciliation, and communication with other providers. Discharge Instructions Please refer to the electronic Patient Visit Report (Discharge Instructions) for additional information. Follow-Up Neurology Additional Copies To [facility] Resident Tracking Resident Involvement: Resident Care Provided Care Provided: Adult Hospital Medicine
[2017-07-23 15:17] VITALS: BP 147/77; PULSE 67; TEMP 36.8; O2SAT 98
[2017-07-23 15:47] VITALS: BP 130/72; PULSE 70; TEMP 36.6; O2SAT 100
--- NOTE | 2017-07-23 22:33 | EMERGENCY ROOM VISIT NOTE ---
ED Visit Note First contact with patient: 13:08 Resident Physician Supervision Note: I separetely consented the patient for the lumbar puncture, discussing the risks and benefits. I directly supervised the Dr. Rapp during lumbar puncture. I was immediately available throughout the procedure, from initiation to completion. Please see his procedure note for further details. Documented By: Kira Woodard
== END 2017-07-23 15:51 | disposition home or self-care (01) | DRG 101 ==
LOC: C.EDC 12:36 → C.2T 16:45 → ENRESERV 17:20 → C.MS2W 07-22 18:43
PROVIDERS: ADMIT Internal Medicine; ATTEND Internal Medicine
PROC: 009U3ZX Drainage of Spinal Canal, Percutaneous Approach, Diagnostic (ICD-10-PCS; principal; 2017-07-21)
DX: R56.9 Unspecified convulsions (principal); I16.1 Hypertensive emergency; T43.611A Poisoning by caffeine, accidental (unintentional), initial encounter; T45.0X1A Poisoning by antiallergic and antiemetic drugs, accidental (unintentional), initial encounter; T39.1X1A Poisoning by 4-Aminophenol derivatives, accidental (unintentional), initial encounter; T44.4X1A Poisoning by predominantly alpha-adrenoreceptor agonists, accidental (unintentional), initial encounter; T48.3X1A Poisoning by antitussives, accidental (unintentional), initial encounter; F41.9 Anxiety disorder, unspecified; R50.9 Fever, unspecified; R51 Headache; M43.6 Torticollis; R41.82 Altered mental status, unspecified; Q03.9 Congenital hydrocephalus, unspecified; Z98.2 Presence of cerebrospinal fluid drainage device

== ENCOUNTER → 2017-08-10 | Outpatient (CLI) | payer OTHER ==
[~2017-08-10] MED LIST: IBUP-1459 PO; [UNRECOGNIZED DRUG - OTHER] PO
--- NOTE | 2017-08-10 15:46 | ECHOCARDIOGRAM REPORT ---
*NOTICE TO RECEIVING LIBERTARIAN AGENCY This information is strictly Confidential and protected under [place] law. [place] law prohibits you from making any further disclosure of this information unless further disclosure is expressly permitted by the written consent of the person to whom it pertains or is authorized by law. A general authorization for the release of medical or other information is not sufficient for this purpose. Hospital accepts no responsibility if the information is made available to any other person, INCLUDING THE PATIENT. Interpretation Summary * Name: DANIELA CANNON II Study Date: 08/10/2017 12:50 PM BP: 140/60 mmHg * Patient Location: [facility] HR: 83 * : 1990 (M/d/yyyy) Gender: Male Height: 72 in * Age: 26 yrs Ethnicity: CA Weight: 200 lb * Ordering Physician: Ingrid Kolb * Referring Physician: Ingrid Kolb * Performed By: Anne Mora RDCS * * Reason For Study: UNCONTROLLED HTN * BSA: 2.1 m2 * -- Conclusions -- * 1. Normal LV size. Normal LV wall thickness. * 2. Normal LV systolic function. LVEF 60-65%. No regional wall motion abnormalities. * 3. Normal RV size and function. * 4. No significant valvular pathology. * 5. No prior studies for comparison. Procedure Details * A complete two-dimensional transthoracic echocardiogram was performed (2D, M-mode, Doppler and color flow Doppler). Left Ventricle * The left ventricle is grossly normal size. * There is normal left ventricular wall thickness. * Ejection Fraction = 60-65%. * No regional wall motion abnormalities noted. Right Ventricle * The right ventricle is grossly normal size. * There is normal right ventricular wall thickness. * The right ventricular systolic function is normal. Atria * The left atrial size is normal. * Right atrial size is normal. * There is no evidence of atrial septal defect, but resolution does not allow assessment for a patent foramen ovale. Mitral Valve * The mitral valve is grossly normal. * There is systolic anterior motion of the chordal apparatus. * There is no mitral valve stenosis. * There is trace mitral regurgitation. Tricuspid Valve * Significant tricuspid regurgitation is absent. Aortic Valve * The aortic valve opens well. * The aortic valve is trileaflet. * No hemodynamically significant valvular aortic stenosis. * There is no significant aortic regurgitation. Pulmonic Valve * The pulmonary valve is inadequately visualized, but the Doppler data is adequate for interpretation. * There is no pulmonic valvular stenosis. * Trace pulmonic valvular regurgitation. Great Vessels * The aortic root and proximal ascending aorta are normal sized. Pericardium/Pleural * There is no pericardial effusion. * There is no pleural effusion. Great Vessels * There is no evidence of pulmonary hypertension. The PA systolic pressure is less than 36 mmHg. MMode 2D Measurements and Calculations IVSd 1.0 cm IVSs 1.6 cm LVIDd 4.5 cm LVIDs 2.9 cm LVPWd 1.2 cm LVPWs 1.8 cm IVS/LVPW 0.81 FS 36.3 % EDV(Teich) 94.6 ml ESV(Teich) 32.0 ml EF(Teich) 66.1 % EDV(cubed) 93.9 ml ESV(cubed) 24.2 ml EF(cubed) 74.2 % % IVS thick 54.6 % % LVPW thick 43.4 % LV mass(C)d 182.6 grams LV mass(C)dI 85.7 grams/m\S\2 LV mass(C)s 180.8 grams LV mass(C)sI 84.9 grams/m\S\2 SV(Teich) 62.6 ml SI(Teich) 29.4 ml/m\S\2 SV(cubed) 69.6 ml SI(cubed) 32.7 ml/m\S\2 Ao root diam 2.9 cm Ao root area 6.7 cm\S\2 LA dimension 3.4 cm LA/Ao 1.2 LVAd ap4 26.9 cm\S\2 LVLd ap4 8.8 cm EDV(MOD-sp4) 67.6 ml EDV(sp4-el) 69.4 ml LVAs ap4 14.9 cm\S\2 LVLs ap4 7.3 cm ESV(MOD-sp4) 26.3 ml ESV(sp4-el) 25.9 ml EF(MOD-sp4) 61.1 % EF(sp4-el) 62.8 % LVAd ap2 28.6 cm\S\2 LVLd ap2 8.8 cm EDV(MOD-sp2) 75.8 ml EDV(sp2-el) 78.6 ml LVAs ap2 16.2 cm\S\2 LVLs ap2 7.5 cm ESV(MOD-sp2) 30.7 ml ESV(sp2-el) 29.7 ml EF(MOD-sp2) 59.6 % EF(sp2-el) 62.2 % LVLd %diff 0.29 % EDV(MOD-bp) 72.7 ml LVLs %diff 3.1 % ESV(MOD-bp) 29.0 ml EF(MOD-bp) 60.1 % SV(MOD-sp4) 41.3 ml SI(MOD-sp4) 19.4 ml/m\S\2 SV(MOD-sp2) 45.2 ml SI(MOD-sp2) 21.2 ml/m\S\2 SV(MOD-bp) 43.7 ml SI(MOD-bp) 20.5 ml/m\S\2 SV(sp4-el) 43.6 ml SI(sp4-el) 20.5 ml/m\S\2 SV(sp2-el) 48.9 ml SI(sp2-el) 23.0 ml/m\S\2 Doppler Measurements and Calculations MV E max esmer 60.2 cm/sec MV A max esmer 48.2 cm/sec MV E/A 1.2 MV dec time 0.28 sec Ao V2 max 124.6 cm/sec Ao max PG 6.2 mmHg Ao max PG (full) -0.12 mmHg LV V1 max PG 6.3 mmHg LV V1 max 125.7 cm/sec
== END | disposition home or self-care (01) ==
LOC: C.CPL 12:48
PROVIDERS: ATTEND Family Medicine
DX: I10 Essential (primary) hypertension (principal)

== ENCOUNTER → 2017-08-13 | Outpatient (CLI) | payer OTHER ==
[~2017-08-13] MED LIST changes: +GADAVIST IV PRN
--- NOTE | 2017-08-13 11:29 | DIAGNOSTIC IMAGING REPORT ---
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 Following the IV administration of 9 mL of Gadavist contrast, additional enhanced images were obtained. FINDINGS: Sagittal T1, axial diffusion, proton density and T2 weighted axial, coronal FLAIR, and pre and post axial T1-weighted images were acquired. These were supplemented with post gadolinium coronal T1 weighted images. No intra or extra-axial mass lesions are visualized. Axial diffusion-weighted images reveal no evidence of acute or subacute infarction. There is a left frontal ventriculostomy catheter which terminates in the left lateral ventricle near the foramen of Kristian. The left lateral ventricle remains asymmetrically smaller than the right. There is no evidence of pathologic ventricular dilatation. Proton density T2-weighted and FLAIR images reveal a few scattered foci of increased T2 signal within the white matter. There are no abnormal flow voids. There is no evidence of pathologic enhancement. IMPRESSION: 1. No acute intracranial findings 2. A left frontal ventriculostomy catheter is again visualized 3. Asymmetric ventricular size. The left lateral ventricle remains smaller than the right. 4. No evidence of hydrocephalus 5. There are a few scattered nonspecific foci of increased T2 signal within the white matter 6. No pathologic masses identified Electronically signed by: Kana Edwards M.D. 08/13/2017 11:27 AM Dictated Date/Time: 08/13/2017 11:23 AM
== END | disposition home or self-care (01) ==
LOC: C.MRI 09:35
PROVIDERS: ATTEND Student in an Organized Health Care Education/Training Program
DX: Q03.9 Congenital hydrocephalus, unspecified (principal); R56.9 Unspecified convulsions; Z98.2 Presence of cerebrospinal fluid drainage device

== ENCOUNTER 2022-05-18 15:41 | Inpatient (IN) ==
[2022-05-18] MEDS ORDERED: SODIUM CHLORIDE 0.9% 1000ML 1,000 ML IV STA (16:10)
[2022-05-18] MEDS ORDERED: ACETAMINOPHEN 325 MG TAB PO STA (16:22)
--- NOTE | 2022-05-18 16:38 | Emergency Department Note ---
History of Present Illness General Chief complaint: Fever Stated complaint: FEVER, RASH AND DISCOLORATION RIGHT LEG Time Seen by Provider: 05/18/22 15:57 History of Present Illness Maximum Pain Intensity: 6 31 year old male who presents to ED today with c/o fever and right lower leg rash. Patient states he started with a fever on Thursday with associated sinus congestion. Yesterday he then noted a rash to his right leg that developed spontaneously. It started at his ankle and has since spread to the entirety of his lower leg. He denies known injury or wounds to the area. He has pain of his entire right leg but worse at the ankle and groin. He notes that a few weeks ago he kicked his metal shower door which caused a cut in between his 4th and 5th toes but otherwise no trauma to the extremity. Denies recent travel, new or changes in medications, insect bites. He reports a history of migraines and had one yesterday. He states that his migraines can cause him to have syncopal epi sodes which one did occur yesterday while sitting at a restaurant. The syncopal episode was observed and he was told he was out for about 1.5 minutes. He denies head strike or seizure like activity. Denies chest pain, SOB, cough, sore throat, abdominal pain, diarrhea/constipation, urinary symptoms. Home Medications Medication Instructions Recorded Confirmed Type lisinopril 10 mg tablet 10 mg PO DAILY 02/10/22 05/18/22 History sumatriptan succinate 25 mg tablet See Rx Instructions PO .COMPLEX #8 02/10/22 05/18/22 Rx tabs Allergies Allergy/AdvReac Type Severity Reaction Status Date / Time No Known Allergies Allergy Verified 05/18/22 17:07 Past Med/Surg History Medical History (Updated 05/18/22 @ 20:08 by Cynthia Lrasen PA-C) Hypertension Family History Denies family history of Clotting disorder Social History Smoking Status: Never smoker Preferred Language: Portuguese Feels Safe at Home: Yes Physical Exam Vital Signs Vital Signs - 24 hr 05/18/22 15:50 05/18/22 16:49 05/18/22 16:48 Temperature 37.0 C Temperature Source Temporal Artery Scan Pulse Rate 106 H 93 H 93 H Pulse Rate from SpO2 Sensor 94 H Respiratory Rate 18 21 Respiratory Depth Normal Blood Pressure 141/93 H Blood Pressure Mean 109 Blood Pressure Position Sitting Pulse Oximetry 98 97 Oxygen Delivery Method Room Air Sepsis Recent Fever Within 48 Hours Yes Sepsis New/Unexplained Change in Mental Status No Sepsis Action Taken by Nursing No Action Required 05/18/22 16:50 05/18/22 17:00 05/18/22 17:00 Temperature Temperature Source Pulse Rate 94 H 106 H Pulse Rate from SpO2 Sensor 95 H 105 H Respiratory Rate 19 23 Respiratory Depth Blood Pressure 137/91 Blood Pressure Mean 106 Blood Pressure Position Pulse Oximetry 98 98 Oxygen Delivery Method Sepsis Recent Fever Within 48 Hours Sepsis New/Unexplained Change in Mental Status Sepsis Action Taken by Nursing 05/18/22 17:10 05/18/22 17:20 05/18/22 17:30 Temperature Temperature Source Pulse Rate 90 92 H Pulse Rate from SpO2 Sensor 91 H 92 H Respiratory Rate 22 20 Respiratory Depth Blood Pressure 138/92 Blood Pressure Mean 107 Blood Pressure Position Pulse Oximetry 99 97 Oxygen Delivery Method Sepsis Recent Fever Within 48 Hours Sepsis New/Unexplained Change in Mental Status Sepsis Action Taken by Nursing 05/18/22 17:30 05/18/22 17:40 05/18/22 17:50 Temperature Temperature Source Pulse Rate 92 H 92 H 86 Pulse Rate from SpO2 Sensor 94 H 92 H 88 Respiratory Rate 19 16 13 Respiratory Depth Blood Pressure Blood Pressure Mean Blood Pressure Position Pulse Oximetry 99 100 100 Oxygen Delivery Method Sepsis Recent Fever Within 48 Hours Sepsis New/Unexplained Change in Mental Status Sepsis Action Taken by Nursing 05/18/22 18:00 05/18/22 18:00 05/18/22 18:10 Temperature Temperature Source Pulse Rate 94 H 90 Pulse Rate from SpO2 Sensor 95 H 87 Respiratory Rate 15 14 Respiratory Depth Blood Pressure 148/94 H Blood Pressure Mean 112 Blood Pressure Position Pulse Oximetry 100 100 Oxygen Delivery Method Sepsis Recent Fever Within 48 Hours Sepsis New/Unexplained Change in Mental Status Sepsis Action Taken by Nursing 05/18/22 18:20 05/18/22 18:30 05/18/22 18:30 Temperature Temperature Source Pulse Rate 92 H 99 H Pulse Rate from SpO2 Sensor 92 H 95 H Respiratory Rate 19 21 Respiratory Depth Blood Pressure 141/92 H Blood Pressure Mean 108 Blood Pressure Position Pulse Oximetry 100 100 Oxygen Delivery Method Sepsis Recent Fever Within 48 Hours Sepsis New/Unexplained Change in Mental Status Sepsis Action Taken by Nursing Constitutional: alert and oriented x3. no acute distress. mildly-ill appearing HEENT: normocephalic, atraumatic. normal conjunctiva.PERRLA. EOM's grossly intact. TMs pearly resendiz without effusion. Pharynx pink without exudate. Tonsils nonenlarged. Mucus membranes moist Neck: neck is supple, nontender. Respiratory: lungs are clear to auscultation without wheezes, rhonchi, or rales bilaterally. equal chest rise. normal respiratory effort, no accessory muscle use. Cardiovascular: normal heart sounds without murmur. regular rate and rhythm. GI: abdomen is soft, nontender. nl bowel sounds present throughout. No palpable masses. No rebound tenderness or guarding. No CVA tenderness Skin: right lower leg nonblanchable, circumferential erythematous rash. Small erythematous rash rigth groin MSK: diffuse tenderness along entire right lower extremity. No obvious bony deformity. Peripheral vascular: lower extremities warm and well perfused with palpable pedal pulses. Mild edema RLE compared to left Neuro: without focal neuro deficits. Psych:appropriate mood and affect. Course Administered Medications Ondansetron HCl (Ondansetron Inj 2 Mg/Ml 2 Ml Vial) 4 mg IV Q4H PRN PRN Reason: Nausea Stop: 06/17/22 17:32 Last Admin: 05/18/22 17:50 Dose: 4 mg Documented By: LEXIS Discontinued Medications Acetaminophen (Acetaminophen 325 Mg Tab) 650 mg PO NOW STA Stop: 05/18/22 16:23 Last Admin: 05/18/22 16:35 Dose: 650 mg Documented By: LEXIS Sodium Chloride (Nss 1000ml) 1,000 mls @ 999 mls/hr IV .Q1H1M STA Stop: 05/18/22 17:10 Last Admin: 05/18/22 16:35 Dose: 999 mls/hr Documented By: LEXIS Ceftriaxone Sodium (Rocephin) 2,000 mg in 70 mls @ 140 mls/hr IV NOW STA Stop: 05/18/22 17:18 Last Infusion: 05/18/22 17:58 Dose: 0 mls/hr Documented By: Admin: 05/18/22 17:14 Dose: 140 mls/hr Documented By: LEXIS Ketorolac Tromethamine (Ketorolac Tromethamine 15 Mg/Ml Vial) 15 mg IV NOW STA Stop: 05/18/22 18:41 Last Admin: 05/18/22 19:07 Dose: 15 mg Documented By: DOMINIQUE Pantoprazole Sodium (Pantoprazole 40 Mg Tab) 40 mg PO NOW STA Stop: 05/18/22 17:34 Last Admin: 05/18/22 17:50 Dose: 40 mg Documented By: LEXIS Medical Decision Making Differential Diagnosis vasculitis, cellulitis, sepsis, contact dermatitis, viral exanthem, urticaria, allergic reaction, Ferrera-Frank syndrome, toxic epidermal necrolysis, erythema multiforme, cellulitis, scabies, HSV, varicella, zoster, eczema, staph scalded skin syndrome, fungal infection, as well as other pathologies. Laboratory Data Attestation: I reviewed the patient's lab results. 05/18/22 16:30 05/18/22 16:30 Lab Results 05/18/22 05/18/22 05/18/22 Range/Units 16:30 16:30 16:30 WBC 15.63 H (4.8-10.8) K/ul RBC 5.22 (4.70-6.10) M/uL Hgb 15.1 (14.0-18.0) g/dl Hct 42.8 (42.0-52.0) % MCV 82.0 (80.0-100.0) fL MCH 28.9 (25.0-34.0) pg MCHC 35.3 (32.0-36.0) g/dL RDW Std Deviation 39.4 (36.4-46.3) fL RDW Coeff of Marcelino 13.3 (11.5-14.5) % Plt Count 222 (130-400) K/uL MPV 9.2 L (9.4-12.4) fL Immature Gran % (Auto) 0.6 % Neut % (Auto) 88.8 % Lymph % (Auto) 6.3 % Emmons % (Auto) 4.1 % Eos % (Auto) 0.0 % Baso % (Auto) 0.2 % Neut # (Auto) 13.88 H (1.40-6.50) K/uL Lymph # (Auto) 0.99 L (1.2-3.4) K/uL Emmons # (Auto) 0.64 H (0.11-0.59) K/uL Eos # (Auto) 0.00 (0-0.50) K/uL Baso # (Auto) 0.03 (0-0.2) K/uL Immature Gran # (Auto) 0.09 (0.01-0.20) K/uL ESR (0-15) mm/hr PT (9.0-12.0) Seconds INR (0.9-1.1) APTT (21.0-31.0) Seconds PTT Ratio Sodium 133 L (136-145) mmol/L Potassium 3.8 (3.5-5.1) mmol/L Chloride 99 (98-107) mmol/L Carbon Dioxide 23 (21-32) mmol/L Anion Gap 11 (3-11) BUN 22 (6-23) mg/dl Creatinine 1.79 H (0.6-1.4) mg/dl Est Cr Clr Drug Dosing Not Reportable Est GFR ( Amer) 56.8 ml/min Est GFR (Non-Af Amer) 49.0 ml/min BUN/Creatinine Ratio 12.3 (10-20) Glucose 113 H (70-99(Fasting)) mg/dl Lactate (0.4-2.0) mmol/L Calcium 9.6 (8.5-10.1) mg/dl Total Bilirubin 0.9 (0.2-1.0) mg/dl AST 26 (13-39) U/L ALT 37 (7-52) U/L Alkaline Phosphatase 74 (34-104) U/L Total Protein 7.8 (6.0-8.3) gm/dl Albumin 4.3 (3.4-5.0) gm/dl Globulin 3.5 (2.5-4.0) gm/dl Albumin/Globulin Ratio 1.2 (0.9-2) Procalcitonin 3.45 H (0-0.5) ng/ml Adenovirus (PCR) (NotDetected) B. pertussis DNA (PCR) (NotDetected) B.parapertussis DNA PCR (NotDetected) C. pneumoniae DNA (PCR) (NotDetected) Coronavirus OC43 (PCR) (NotDetected) Coronavirus HKU1 (PCR) (NotDetected) Coronavirus 229E (PCR) (NotDetected) SARS-CoV-2 (PCR) (NotDetected) Coronavirus NL63 (PCR) (NotDetected) Human Metapneumovir PCR (NotDetected) Influenza Type A (PCR) (NotDetected) Influenza Type B (PCR) (NotDetected) M. pneumoniae (PCR) (NotDetected) Parainfluenza 1 (PCR) (NotDetected) Parainfluenza 2 (PCR) (NotDetected) Parainfluenza 3 (PCR) (NotDetected) Parainfluenza 4 (PCR) (NotDetected) RSV (PCR) (NotDetected) Entero/Rhino (PCR) (NotDetected) 05/18/22 05/18/22 05/18/22 Range/Units 16:30 16:30 16:30 WBC (4.8-10.8) K/ul RBC (4.70-6.10) M/uL Hgb (14.0-18.0) g/dl Hct (42.0-52.0) % MCV (80.0-100.0) fL MCH (25.0-34.0) pg MCHC (32.0-36.0) g/dL RDW Std Deviation (36.4-46.3) fL RDW Coeff of Marcelino (11.5-14.5) % Plt Count (130-400) K/uL MPV (9.4-12.4) fL Immature Gran % (Auto) % Neut % (Auto) % Lymph % (Auto) % Emmons % (Auto) % Eos % (Auto) % Baso % (Auto) % Neut # (Auto) (1.40-6.50) K/uL Lymph # (Auto) (1.2-3.4) K/uL Emmons # (Auto) (0.11-0.59) K/uL Eos # (Auto) (0-0.50) K/uL Baso # (Auto) (0-0.2) K/uL Immature Gran # (Auto) (0.01-0.20) K/uL ESR 53 H (0-15) mm/hr PT (9.0-12.0) Seconds INR (0.9-1.1) APTT (21.0-31.0) Seconds PTT Ratio Sodium (136-145) mmol/L Potassium (3.5-5.1) mmol/L Chloride (98-107) mmol/L Carbon Dioxide (21-32) mmol/L Anion Gap (3-11) BUN (6-23) mg/dl Creatinine (0.6-1.4) mg/dl Est Cr Clr Drug Dosing Est GFR ( Amer) ml/min Est GFR (Non-Af Amer) ml/min BUN/Creatinine Ratio (10-20) Glucose (70-99(Fasting)) mg/dl Lactate 1.4 (0.4-2.0) mmol/L Calcium (8.5-10.1) mg/dl Total Bilirubin (0.2-1.0) mg/dl AST (13-39) U/L ALT (7-52) U/L Alkaline Phosphatase (34-104) U/L Total Protein (6.0-8.3) gm/dl Albumin (3.4-5.0) gm/dl Globulin (2.5-4.0) gm/dl Albumin/Globulin Ratio (0.9-2) Procalcitonin (0-0.5) ng/ml Adenovirus (PCR) Not Detected (NotDetected) B. pertussis DNA (PCR) Not Detected (NotDetected) B.parapertussis DNA PCR Not Detected (NotDetected) C. pneumoniae DNA (PCR) Not Detected (NotDetected) Coronavirus OC43 (PCR) Not Detected (NotDetected) Coronavirus HKU1 (PCR) DETECTED A* (NotDetected) Coronavirus 229E (PCR) Not Detected (NotDetected) SARS-CoV-2 (PCR) Not Detected (NotDetected) Coronavirus NL63 (PCR) Not Detected (NotDetected) Human Metapneumovir PCR Not Detected (NotDetected) Influenza Type A (PCR) Not Detected (NotDetected) Influenza Type B (PCR) Not Detected (NotDetected) M. pneumoniae (PCR) Not Detected (NotDetected) Parainfluenza 1 (PCR) Not Detected (NotDetected) Parainfluenza 2 (PCR) Not Detected (NotDetected) Parainfluenza 3 (PCR) Not Detected (NotDetected) Parainfluenza 4 (PCR) Not Detected (NotDetected) RSV (PCR) Not Detected (NotDetected) Entero/Rhino (PCR) DETECTED A* (NotDetected) 05/18/22 Range/Units 16:30 WBC (4.8-10.8) K/ul RBC (4.70-6.10) M/uL Hgb (14.0-18.0) g/dl Hct (42.0-52.0) % MCV (80.0-100.0) fL MCH (25.0-34.0) pg MCHC (32.0-36.0) g/dL RDW Std Deviation (36.4-46.3) fL RDW Coeff of Marcelino (11.5-14.5) % Plt Count (130-400) K/uL MPV (9.4-12.4) fL Immature Gran % (Auto) % Neut % (Auto) % Lymph % (Auto) % Emmons % (Auto) % Eos % (Auto) % Baso % (Auto) % Neut # (Auto) (1.40-6.50) K/uL Lymph # (Auto) (1.2-3.4) K/uL Emmons # (Auto) (0.11-0.59) K/uL Eos # (Auto) (0-0.50) K/uL Baso # (Auto) (0-0.2) K/uL Immature Gran # (Auto) (0.01-0.20) K/uL ESR (0-15) mm/hr PT 11.7 (9.0-12.0) Seconds INR 1.1 (0.9-1.1) APTT 34.6 H (21.0-31.0) Seconds PTT Ratio 1.3 Sodium (136-145) mmol/L Potassium (3.5-5.1) mmol/L Chloride (98-107) mmol/L Carbon Dioxide (21-32) mmol/L Anion Gap (3-11) BUN (6-23) mg/dl Creatinine (0.6-1.4) mg/dl Est Cr Clr Drug Dosing Est GFR ( Amer) ml/min Est GFR (Non-Af Amer) ml/min BUN/Creatinine Ratio (10-20) Glucose (70-99(Fasting)) mg/dl Lactate (0.4-2.0) mmol/L Calcium (8.5-10.1) mg/dl Total Bilirubin (0.2-1.0) mg/dl AST (13-39) U/L ALT (7-52) U/L Alkaline Phosphatase (34-104) U/L Total Protein (6.0-8.3) gm/dl Albumin (3.4-5.0) gm/dl Globulin (2.5-4.0) gm/dl Albumin/Globulin Ratio (0.9-2) Procalcitonin (0-0.5) ng/ml Adenovirus (PCR) (NotDetected) B. pertussis DNA (PCR) (NotDetected) B.parapertussis DNA PCR (NotDetected) C. pneumoniae DNA (PCR) (NotDetected) Coronavirus OC43 (PCR) (NotDetected) Coronavirus HKU1 (PCR) (NotDetected) Coronavirus 229E (PCR) (NotDetected) SARS-CoV-2 (PCR) (NotDetected) Coronavirus NL63 (PCR) (NotDetected) Human Metapneumovir PCR (NotDetected) Influenza Type A (PCR) (NotDetected) Influenza Type B (PCR) (NotDetected) M. pneumoniae (PCR) (NotDetected) Parainfluenza 1 (PCR) (NotDetected) Parainfluenza 2 (PCR) (NotDetected) Parainfluenza 3 (PCR) (NotDetected) Parainfluenza 4 (PCR) (NotDetected) RSV (PCR) (NotDetected) Entero/Rhino (PCR) (NotDetected) Imaging Data Attestation: I personally reviewed and interpreted this imaging study as follows: My Impression: I agree with radiology interpretation. Radiologist's Impression: Chest X-Ray 05/18/22 18:31 SINGLE VIEW CHEST CLINICAL HISTORY: Fever FINDINGS: An AP, portable, upright chest radiograph is compared to study dated 01/14/2018. The cardiomediastinal silhouette is unremarkable. The lungs and pleural spaces are clear. No pneumothorax is seen. The bony thorax is grossly intact. IMPRESSION: No active disease in the chest. ACT 112: Negative or not required by law. Electronically signed by: Ramiro Urban M.D. 05/18/2022 6:48 PM MDM Narrative 31 year old male who presents to ED today with c/o fever and right lower leg r joão. Review of pertinent visits and patient history performed including nephrology visit 01/29/2022. Vital signs in ED within normal limits, afebrile. He does not currently meet sepsis criteria. Clinically, patient is mildly ill appearing but in no acute distress. There is a circumferential nonblanchable petechial rash of the right lower leg consistent with a vasculitis. Labs were obtained and demonstrate leukocytosis as well as SILVIA with creatinine of 1.79 and mild hyponatremia of 133. Procalcitonin elevated at 3.45. ESR elevated at 53. EKG demonstrates NSR at a rate of 94 bpm without evidence of ischemic changes. Viral panel positive for coronavirus and rhinovirus. Urinalysis was ordered but was unable to be collected while in ED. CXR without acute pathology. While in ED, patient was treated with 2g IV Rocephin for possible cellulitis vs vasculitis as well as IV fluids. On re-evaluation, patient c/o a migraine starting. He was given IV Toradol and Zofran with mild improvement of symptoms. All exam findings and test results were discussed with patient. Given elevated white count, procal and SILVIA as well as extensive rash, I have recommend admission to hospital for IV antibiotics and further work up. Patient verbalized understanding and is agreeable to this plan. Patient was discussed with attending, Dr. Bell, who agreed with work up and treatment plan. Case was discussed with Dr. Siu, who graciously accepted patient for admission. Patient admitted in stable condition. Impression & Plan Rash, Fever, Vasculitis Discharge Plan Visit Data Chief Complaint: Fever Stated Complaint: FEVER, RASH AND DISCOLORATION RIGHT LEG ED Provider: González Bell ED Midlevel Provider: Cynthia Larsen Discharge Problem: Rash, Fever, Vasculitis Patient Disposition: Admitted As Inpatient Discharge Instructions Interventions: ED Discharge Assessment Last Done: 05/18/22 20:00
[2022-05-18] MEDS ORDERED: cefTRIAXone SODIUM 2,000 MG/70 ML BAG IV STA (16:49)
[2022-05-18 17:03] LABS: Basophils # (auto) 0.03 K/uL (0-0.2); Basophils % (auto) 0.2 %; Hematocrit (blood only) 42.8 % (42.0-52.0); Hemoglobin 15.1 g/dl (14.0-18.0); Immature Granulocytes # (auto) 0.09 K/uL (0.01-0.20); Immature Granulocytes % (auto) 0.6 %; Lymphocytes # (auto) 0.99 K/uL (1.2-3.4); Lymphocytes % (auto) 6.3 %; Mean Corpuscular Hemoglobin 28.9 pg (25.0-34.0); Mean Corpuscular Hgb Conc 35.3 g/dL (32.0-36.0); Mean Platelet Volume 9.2 fL (9.4-12.4); Monocytes # (auto) 0.64 K/uL (0.11-0.59); Monocytes % (auto) 4.1 %; Neutrophils # (auto) 13.88 K/uL (1.40-6.50); Neutrophils % (auto) 88.8 %; Platelet Count 222 K/uL (130-400); RDW Coefficient of Variation 13.3 % (11.5-14.5); RDW Standard Deviation 39.4 fL (36.4-46.3); Red Blood Count 5.22 M/uL (4.70-6.10); White Blood Count 15.63 K/ul (4.8-10.8)
[2022-05-18 17:15] LABS: Alanine Aminotransferase 37 U/L (7-52); Albumin Globulin Ratio 1.2 (0.9-2); Albumin Level 4.3 gm/dl (3.4-5.0); Alkaline Phosphatase 74 U/L (34-104); Anion Gap 11 (3-11); Aspartate Aminotransferase 26 U/L (13-39); BUN Creatinine Ratio 12.3 (10-20); Bilirubin,Total 0.9 mg/dl (0.2-1.0); Blood Urea Nitrogen 22 mg/dl (6-23); Calcium 9.6 mg/dl (8.5-10.1); Carbon Dioxide 23 mmol/L (21-32); Chloride 99 mmol/L (98-107); Est GFR (African American) 56.8 ml/min; Globulin 3.5 gm/dl (2.5-4.0); Glucose 113 mg/dl (70-99(Fasting)); Potassium 3.8 mmol/L (3.5-5.1); Sodium 133 mmol/L (136-145); Total Protein 7.8 gm/dl (6.0-8.3)
[2022-05-18] MEDS ORDERED: PANTOprazole 40 MG TAB PO STA (17:33)
[2022-05-18 17:44] LABS: Adenovirus PCR Not Detected (NotDetected); Bordetella parapertussis PCR Not Detected (NotDetected); Bordetella pertussis PCR Not Detected (NotDetected); Chlamydia pneumoniae PCR Not Detected (NotDetected); Coronavirus 229E PCR Not Detected (NotDetected); Coronavirus CoV-2 (COVID19)PCR Not Detected (NotDetected); Coronavirus NL63 PCR Not Detected (NotDetected); Coronavirus OC43PCR Not Detected (NotDetected); Human Metapneumovirus PCR Not Detected (NotDetected); Influenza A PCR Not Detected (NotDetected); Influenza B PCR Not Detected (NotDetected); Mycoplasma pneumoniae PCR Not Detected (NotDetected); Parainfluenza Virus 1 PCR Not Detected (NotDetected); Parainfluenza Virus 2 PCR Not Detected (NotDetected); Parainfluenza Virus 3 PCR Not Detected (NotDetected); Parainfluenza Virus 4 PCR Not Detected (NotDetected); Respiratory Syncytial VirusPCR Not Detected (NotDetected)
[2022-05-18 17:49] LABS: Coronavirus HKU1 PCR DETECTED (NotDetected); Rhinovirus/Enterovirus PCR DETECTED (NotDetected)
[2022-05-18] MEDS: ONDANSETRON INJ 2 MG/ML 2 ML VIAL IV PRN (17:50)
--- NOTE | 2022-05-18 18:08 | History & Physical Report ---
Date of Service May 18, 2022 Assessment & Plan (1) Rash: Plan: RLE Rash, cellulitis versus vasculitis Nonblanching petechial rash overlying right extremity which is warm and tender. DDx includes cellulitis in context of Pro-David/fever, vasculitis. Lower suspicion for viral, pt it cabrera/adeno+ Empirically covered with Rocephin for cellulitis ESR, CRP, RA, ANCA, ROBERT panel ordered - Plt normal, coags pending -If not clinically improving with empiric treatment, follow-up with biopsy and steroids Photo placed in admitting H&P chart for comparison Cabrera/Adeno Positive - With mild URI sx x2 days - CXR pending - Procal positive - Supportive care, not requiring O2 - CXR pending for 2ary PNA, covered with rocephin as otherwise noted if present Migraines Follows with neurology, uses sumatriptan as needed Has a past history of hydrocephalus with operating [employer] shunt, stable. Pending next CT in approximately July Hypertension Improved control since being on lisinopril BP goal less than 130/80 Had prior renal/Matt/cortisol/metanephrine evaluation for severe hypertension, these were normal and renal artery duplex in 2019 was normal Has a history of horseshoe kidney with no UTI/stones, has yearly screening for proteinuria Continue lisinopril, amlodipine can be added if needed defer at time of admission DVT prophylaxis: Low risk Diet: Regular Disposition: Medical surgical CODE STATUS: Full (2) Fever: (3) Hypertension: (4) Migraine without aura: (5) Hydrocephalus with operating shunt: History of Present Illness Primary Care Provider: [facility] Jose Angel Ying is a 31 yo M with a PMHx of HTN, migraine who presented with fever 2 days ago and developed a non-blanchable rash on the RLE suspicious for vasculitis. WBC 15, procal 3, milk SILVIA. Cornovirus/rhino (non COVID). Lobo is seen at the bedside. He reports that he has a history of syncope with episodes that have appeared like seizures, but on extended continuous EEG on prior work-ups did not show seizure activity and had his Keppra stopped. This activity was thought to be due to syncopal episodes. He has a history of hydrocephalus for which she has a functioning [employer] shunt. He reports that with past illnesses his migraines have gotten worse and he tends to feel generally weak, he does have a mild headache at time of assessment which she reports is normal for him in the setting of feeling ill and having some congestion. He reports his symptoms began 2 days ago when he noticed a small red patch on the distal/anterior portion of his ankle which rapidly expanded today. He has felt feverish with some chills. He has also had some sinus congestion and a mild cough without sputum production. He is not short of breath. He has not had any chest pain, chest pressure, lightheadedness, dizziness. Has not had any seizure-like episodes. He reports his blood pressure has been under generally good control, and he did take medication today. Is on lisinopril. Has not been on steroids before. No prior history of vasculitis. Denies past history of autoimmune disease, no known family history of autoimmune disease. He has not had a rash like this previously, notes he did have a fungal infection on his foot in high school which resolved with a steroid like cream but otherwise denies history of rashes/vasculitis. Medical History: Reviewed Medications: Reviewed Surgical History: Reviewed Allergies: Reviewed Social History: Reviewed, alcohol about 4 days/week, up to 2-3 in the setting with no signs of withdrawal during prior periods of cessation. No tobacco use Code Status: Full code Allergies Allergy/AdvReac Type Severity Reaction Status Date / Time No Known Allergies Allergy Verified 05/18/22 17:07 Home Medications Medication Instructions Recorded Confirmed Type lisinopril 10 mg tablet 10 mg PO DAILY 02/10/22 05/18/22 History sumatriptan succinate 25 mg tablet See Rx Instructions PO .COMPLEX #8 02/10/22 05/18/22 Rx tabs Past Med/Surg History Medical History (Updated 05/18/22 @ 18:24 by Joey Siu MD) Hypertension Family History Denies family history of Clotting disorder Social History Smoking Status: Never smoker Preferred Language: Gambian Feels Safe at Home: Yes Review of Systems Review of Systems: All systems reviewed & are unremarkable except as noted in HPI & below Physical Exam Physical Exam: General: A&Ox3. NAD. Cooperative. HEENT: Atraumatic, normocephalic. Vision/hearing intact Pulm: CTAB A&P. -wheezes, -rales, -rhonchi. Symmetrical chest rise. No increased work of breathing. No respiratory distress. Cardiac: RRR, -mrg. Radial pulses intact and symmetrical. Abdominal: Nontender, nondistended, soft. BS present. Extremities: Warm, dry. Right lower extremity with nonblanching petechial demarkated tender rash. Photo below Results & Data Results & Data ([facility]) Vital Signs (Past 12 Hours) Vital Signs Temp Pulse Resp BP Pulse Ox O2 Del Method 05/18/22 16:49 93 H 05/18/22 15:50 37.0 C 106 H 18 141/93 H 98 Room Air PG Care Time/CCT Total # of Minutes Spent Total Time Spent with Patient: Total time spent is greater than 50% in coordination of care (as documented) at patient's floor/unit and/or counseling patient: Coding Level of Care Code 77949 INT INP/OBS CARE 2/55MIN Diagnoses Rash R21 Fever R50.9 Hypertension I10 Migraine without aura G43.009 Hydrocephalus with operating shunt G91.9
[2022-05-18 18:25] LABS: INR 1.1 (0.9-1.1); Partial Thromboplastin Ratio 1.3; Partial Thromboplastin Time 34.6 Seconds (21.0-31.0); Prothrombin Time 11.7 Seconds (9.0-12.0)
[2022-05-18] MEDS ORDERED: KETOROLAC TROMETHAMINE 15 MG/ML VIAL IV STA (18:40)
--- NOTE | 2022-05-18 18:49 | XRay Report ---
SINGLE VIEW CHEST CLINICAL HISTORY: Fever FINDINGS: An AP, portable, upright chest radiograph is compared to study dated 01/14/2018. The cardio mediastinal silhouette is unremarkable. The lungs and pleural spaces are clear. No pneumothorax is se en. The bony thorax is grossly intact. IMPRESSION: No active disease in the chest. ACT 112: Negative or not required by law. Electronically signed by: Ramiro Urban M.D. 05/18/2022 6:48 PM
[2022-05-18] MEDS ORDERED: SODIUM CHLORIDE 0.9% 1000ML 1,000 ML IV ONE (19:12)
[2022-05-18 20:46] LABS: C Reactive Protein 37.87 mg/dl (0-0.5)
[2022-05-19] MEDS: ONDANSETRON INJ 2 MG/ML 2 ML VIAL IV PRN (02:16)
[2022-05-19] MEDS: ACETAMINOPHEN 325 MG TAB PO PRN ×2 (02:27→18:22)
[2022-05-19] MEDS ORDERED: SODIUM CHLORIDE 0.9% 1000ML 1,000 ML IV SCH (02:45)
[2022-05-19] MEDS ORDERED: SUMAtriptan succinate 25 MG TAB PO ONE (05:58)
[2022-05-19 06:47] LABS: Appearance Urine Cloudy (Clear); Blood Urine Negative (Negative); Color Urine Dark Yellow; Glucose Urine UA Negative (Negative); Ketones Urine 1+ (Negative); Leukocyte Esterase Urine Negative (Negative); Nitrite Urine Negative (Negative); Protein Urine 2+ (Negative); RBC Urine Automated 0-4 /hpf (0-4); Specific Gravity Urine 1.034 (1.000-1.030); Urobilinogen Urine Negative (Negative); pH Urine 5.5 (4.5-7.5)
[2022-05-19 06:51] LABS: Bilirubin Urine 1+ (Negative)
[2022-05-19 07:09] LABS: Bacteria Urine Automated 1+ (Negative); Mucus Urine Present (None Prsent)
[2022-05-19] MEDS: lisinopril 20 MG TAB PO SCH (08:29)
[2022-05-19] MEDS ORDERED: lisinopril 10 MG TAB PO SCH (09:00)
--- NOTE | 2022-05-19 09:21 | Electrocardiogram Report ---
Test Reason : Blood Pressure : / mmHG Vent. Rate : 094 BPM Atrial Rate : 094 BPM P-R Int : 146 ms QRS Dur : 114 ms QT Int : 348 ms P-R-T Axes : 053 019 078 degrees QTc Int : 435 ms Normal sinus rhythm Normal ECG When compared with ECG of 14-JAN-2018 20:44, T wave amplitude has decreased in Lateral leads Confirmed by Jovan Peck ([id number]) on 05/19/2022 9:20:57 AM Referred By: REFERRED SELF Confirmed By:Timmy Peck
[2022-05-19 09:40] LABS: BUN Creatinine Ratio 12.7 (10-20); Creatinine Clr Calc Pharmacy 77.7 ml/min; Est GFR (African American) 62.3 ml/min; Est GFR (Non-African American) 53.7 ml/min; Potassium 3.4 mmol/L (3.5-5.1)
[2022-05-19 09:51] LABS: Basophils # (auto) 0.02 K/uL (0-0.2); Basophils % (auto) 0.2 %; Hemoglobin 12.1 g/dl (14.0-18.0); Immature Granulocytes # (auto) 0.07 K/uL (0.01-0.20); Immature Granulocytes % (auto) 0.6 %; Lymphocytes % (auto) 5.7 %; Mean Corpuscular Hemoglobin 28.1 pg (25.0-34.0); Mean Corpuscular Hgb Conc 34.6 g/dL (32.0-36.0); Mean Corpuscular Volume 81.2 fL (80.0-100.0); Mean Platelet Volume 9.3 fL (9.4-12.4); Monocytes # (auto) 0.52 K/uL (0.11-0.59); Monocytes % (auto) 4.2 %; Neutrophils # (auto) 11.03 K/uL (1.40-6.50); Neutrophils % (auto) 89.3 %; Platelet Count 188 K/uL (130-400); RDW Coefficient of Variation 13.3 % (11.5-14.5); RDW Standard Deviation 39.3 fL (36.4-46.3); Red Blood Count 4.31 M/uL (4.70-6.10); White Blood Count 12.34 K/ul (4.8-10.8)
--- NOTE | 2022-05-19 11:16 | Surgery Consultation ---
Date of Consultation May 19, 2022 Assessment & Plan (1) Rash: This is a 31yM with a PMH of hydrocephalus, HTN, convulsive syncope who presents to the [facility] on 05/18/22 with complaints of fever and pain + rash of his right lower extremity that started over the weekend. On exam patient has a nonblanching reddened rash of his RLE of his calf/cabrales circumferentially. This area is warm and tender to palpation. He also has an area of light erythema on his medial thigh. Reports pain throughout his RLE and painful to bear weight on his foot. + DP pulses, can move extremity otherwise without obvious loss of range of motion. On admission patient found to be febrile to 39.2C, WBC 15, enterovirus/rhinovirus +, with elevated CRP of 37.8. Agree with consultation to rheumatology. Rheumatoid factor labs pending. Would also consider consultation to dermatology. ?enterovirus can cause rash. Given presentation we have no plans for skin biopsy from our service. Can await rheumatology input and can consider derm vs. pathology to biopsy if indicated. Can also consider sending tickborne illness studies. (2) Fever: Supervising Physician Co-Signing Physician Notes Dr. Harding of his case have been reviewed as well as his studies and blood work. Also a very good photograph in the H&P showing the right lower extremity rash. Agree with above assessment and especially for Rheum/Derm evaluations History of Present Illness Attending Physician: Radhika Soares MD History of Present Illness This is a 31yM with a PMH of hydrocephalus, HTN, convulsive syncope who presents to the [facility] on 05/18/22 with complaints of fever and pain + rash of his right lower extremity. The patient tells me the redness started Thursday into Thursday on his medial ankle and was a light red. The redness then expanded Thursday into Thursday to the majority of his right LE below his knee and became darker in nature. He states in addition he has an area of redness on his medial thigh that is starting similarly. He reports that his whole R leg is painful. He has not lost any range of motion in the limb, but it is very painful to bear weight on his foot. He denies any trauma to the area and cannot recall any insect/tick bites or open wounds. This has never happened to him before. Also denies any history of autoimmune diseases. Allergies Allergy/AdvReac Type Severity Reaction Status Date / Time No Known Allergies Allergy Verified 05/18/22 17:07 Home Medications Medication Instructions Recorded Confirmed Type lisinopril 10 mg tablet 20 mg PO DAILY 02/10/22 05/18/22 History sumatriptan succinate 25 mg tablet See Rx Instructions PO .COMPLEX #8 02/10/22 05/18/22 Rx tabs lisinopril 10 mg tablet mg 05/18/22 History Patient History Medical History Hypertension Family History Denies family history of Clotting disorder Social History Smoking Status: Never smoker Second Hand Exposure: No; Do You Dip or Chew Tobacco: No; Hx Alcohol Use: Yes (hard cider) Alcohol type: other Hx Substance Use: No Preferred Language: Danish Communication Ability: Effective 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 tender. hurts to move leg and to touch. hurts to bare weight on RLE Physical Exam Physical Exam: awake/alert, no distress Respiratory: normal respiratory effort Cardiovascular: Rate/Rhythm: + tachycardic Skin: Right lower extremity with area of dark reddened skin to calf/cabrales area (warm and tender to palpation). also area of light erythema on R thigh. Whole RLE is painful to move and to touch. +DP pulse appreciated Results & Data ([facility]) Vital Signs (Past 12 Hours) Vital Signs Temp Pulse Resp BP Pulse Ox O2 Del Method 05/19/22 07:29 37.6 C H 108 H 18 135/84 97 Room Air 05/19/22 06:03 37.4 C 110 H 16 151/90 H 100 Room Air 05/19/22 04:00 37.4 C 115 H 18 99 Room Air 05/19/22 02:24 39.2 C H 118 H 20 134/76 97 Room Air 05/19/22 00:10 36.4 C L PG Care Time/CCT Total # of Minutes Spent Total Time Spent with Patient: Total time spent is greater than 50% in coordination of care (as documented) at patient's floor/unit and/or counseling patient: Coding Level of Care Code INP/OBS CONSULT LVL 2, 35 MIN Diagnoses Rash R21 Fever R50.9
--- NOTE | 2022-05-19 14:59 | Hospitalist Progress Note ---
Date of Service May 19, 2022 Assessment & Plan (1) Rash: Plan: -Presents with RLE Rash, etiology is uncertain, vasculitis is a possibility Nonblanching petechial rash overlying right extremity which is warm and tender -Ptient tested positive for ruano/adenovirus Empirically covered with Rocephin for cellulitis ESR, CRP, elevated RA, ANCA, ROBERT pending -Will obtain lower extremity doppler -Rheum and Dermatology on consult -Skin biopsy ordered, but surgery will hold off until Rheum and Derm evaluate (2) Fever: Plan: Ruano/Adeno Positive - With mild URI sx x2 days - CXR pending - Procal positive - Supportive care, not requiring O2 - CXR pending for 2ary PNA, covered with rocephin as otherwise noted if present (3) Hypertension: Plan: Hypertension Improved control since being on lisinopril Had prior renal/Matt/cortisol/metanephrine evaluation for severe hypertension, these were normal and renal artery duplex in 2019 was normal Has a history of horseshoe kidney with no UTI/stones, has yearly screening for proteinuria Continue lisinopril, amlodipine can be added if needed defer at time of adm ission (4) Migraine without aura: Plan: Migraines Follows with neurology, uses sumatriptan as needed Has a past history of hydrocephalus with operating GM MOBILE shunt, stable. Pending next CT in approximately July (5) Hydrocephalus with operating shunt: Plan DVT prophylaxis: Low risk Diet: Regular Disposition: Medical surgical CODE STATUS: Full Admission and Anticipated Discharge Date Admission Date: May 18, 2022 Subjective patient seen and examined, complains of headache Review of Systems Review of Systems: The patient is awake, alert and oriented 3, well developed and well nourished, normocephalic and atraumatic, lying in bed and in no acute distress. HEENT--PERRL, EOMI, mucous membranes and oropharynx mildly dry Neck--supple. No JVD. No bruits. Thyroid normal, trachea midline, no adenopathy. Heart--normal S1 and S2. No murmurs, rubs or gallops. Lungs--clear bilaterally, no respiratory distress, no accessory muscle use. Abdomen--normal bowel sounds and soft. Mild epigastric and left sided abdominal pain Extremities--no cyanosis or clubbing. No edema. Dermatologic--right lower extremity rash Neurologic--cranial nerves II through XII grossly intact. Rheumatologic--normal range of motion. Psychiatric--normal affect. Results & Data Results & Data ([facility]) Vital Signs (Past 12 Hours) Vital Signs Temp Pulse Resp BP Pulse Ox O2 Del Method 05/19/22 08:29 Room Air 05/19/22 07:29 99.7 F H 108 H 18 135/84 97 Room Air 05/19/22 06:03 99.3 F 110 H 16 151/90 H 100 Room Air 05/19/22 04:00 99.3 F 115 H 18 99 Room Air PG Care Time/CCT Total # of Minutes Spent Total Time Spent with Patient: Total time spent is greater than 50% in coordination of care (as documented) at patient's floor/unit and/or counseling patient: Coding Level of Care Code 75711 SUB INP/OBS CARE 2/35MIN Diagnoses Rash R21 Fever R50.9 Hypertension I10 Migraine without aura G43.009 Hydrocephalus with operating shunt G91.9 Time Spent (min) 35
[2022-05-19 15:18] LABS: Lyme Ab IgG w/WB Rflx Negative (Negative); Lyme Ab IgM w/WB Rflx Negative (Negative)
--- NOTE | 2022-05-19 16:55 | Rheumatology Consultation ---
Rheumatology Consultation DOS May 19, 2022 Requesting Physician [place] Attending Physician Dr Soares Reason for Consultation ? vasculitis Assessment & Plan (1) Rash: see below (2) Fever: see below (3) Cellulitis: rapidly progressive right lower leg rash and purpura over 2 days. has significant amount of pain with trying to ambulate on right leg. my biggest concern is infectious. the rapid progression of his symptoms is more consistence with an infectious etiology. I doubt this is a vasculitis or autoimmune process and labs that are pending are less likely to be helpful in this setting. concern for necrotizing fasciitis as well. he does have a small amount of fluid in right knee, ? right ankle as well. I contacted Dr Soares and discussed my concerns about infectious etiology. would avoid steroids. could consider ortho eval for joint aspiration. discussed getting blood cultures as well. Plan 1. await autoimmune labs but less likely to be helpful in this setting 2. discussed concern for infectious etiology including necrotizing fasciitis wit h Dr Soares. No steroids at this point. 3. could consider ortho eval for joint aspiration for cultures, ? need for surgical intervention if necrotizing fasciitis is a concern 4. Likely will not need rheumatology evaluation as an outpatient but feel free to contact me if further rheumatology evaluation is needed 5. Thank you for involving me in this patients care.- History of Present Illness Attending Physician: Radhika Soares MD History of Present Illness Jose Angel Mares is here because of ongoing right leg pain, swelling, redness. he states that thursday he started with some sniffles and then thursday morning had a red spot on his right anterior ankle. he developed some increasing cold like symptoms with nausea, vomiting and the rash worsened on thursday morning. he states it rapidly increased over the entire cabrales so he came to the ED. he was noted to have fevers, chills, + for coronavirus (not covid) and rhinovirus/enterovirus. rheumatology was consulted over question of vasculitis. general surgery saw patient but no biopsy until he was seen by us. reviewed labs - ESR, CRP elevated, chest x ray was good. no prior history of rashes. no history of autoimmune diseases for him or in his family. he does have a history of hydrocephalus and has a shunt. he has headaches but this is usual for him especially when feeling ill. 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 rheum labs were pending. when I examined patient today - he was having chills, noted erythema around his neck. also has erythema up over the inner thigh that is new. has a large erythematous macule of his leg. it is tender to touch some icthing. no recent trauma to his leg. last trauma was 2 months ago in february when he kicked his shower door and caused a skin break between his 3rd and 4th toe. he is on rocephin. no prednis one. he denies any bloody diarrhea, hematuria. rash is not on left leg, abd, back or arms. Allergies Allergy/AdvReac Type Severity Reaction Status Date / Time No Known Allergies Allergy Verified 05/18/22 17:07 Home Medications Medication Instructions Recorded Confirmed Type lisinopril 10 mg tablet 20 mg PO DAILY 02/10/22 05/18/22 History sumatriptan succinate 25 mg tablet See Rx Instructions PO .COMPLEX #8 02/10/22 05/18/22 Rx tabs lisinopril 10 mg tablet mg 05/18/22 History Patient History Medical History (Updated 05/20/22 @ 07:10 by Mehran Jasso MD) Hypertension Family History Denies family history of Clotting disorder Social History Smoking Status: Never smoker Second Hand Exposure: No; Do You Dip or Chew Tobacco: No; Hx Alcohol Use: Yes (hard cider) Alcohol type: other Hx Substance Use: No Preferred Language: Cambodian Communication Ability: Effective 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 Beliefs That Will Affect Care: None Current Living Situation: Other Current Living Situation Comment: university roommate Other Information That Helps Us Care for You: No Feels Safe at Home: Yes Safety Concerns: Feels Safe At This Time Assistive Devices: None Review of Systems Review of Systems: all other negative other than indicated below Constitutional: fevers, chills Gastrointestinal: nausea, vomiting Musculoskeletal: right leg pain - knee, ankle Integumentary: see hpi Physical Exam Constitutional: appears ill, having rigors while lying on the bed during exam Respiratory: CTA b/l with no wheezes or rales Cardiovascular: Reg + S1 and S2 no murmurs Gastrointestinal (Abdomen): soft, NT + BS Musculoskeletal: small right knee effusion with pain on exam. + right ankle edema ? synovitis with pain on exam, no MTP tenderness. no synovitis to the hands, no left knee or ankle effusion Skin: significant large erythematous macule over right anterior cabrales with pain on exam. erythema streaking over right anterior thigh. right lower leg edema - no edema to left leg Results & Data ([facility]) Vital Signs (Past 12 Hours) Vital Signs Temp Pulse Resp BP Pulse Ox O2 Del Method 05/19/22 15:48 37.5 C 98 H 16 137/90 98 Room Air 05/19/22 08:29 Room Air 05/19/22 07:29 37.6 C H 108 H 18 135/84 97 Room Air 05/19/22 06:03 37.4 C 110 H 16 151/90 H 100 Room Air Laboratory Results ESR, CRP elevated
[2022-05-19] MEDS ORDERED: cefTRIAXone SODIUM 2,000 MG in DEXTROSE 5% 50 ML IV SCH (17:00)
--- NOTE | 2022-05-19 19:03 | XRay Report ---
XR knee RT 3V CLINICAL HISTORY: Right knee swelling. COMPARISON STUDY: None. FINDINGS: No fracture or dislocation within the right knee. No knee effusion. No radiopaque foreign b odies. There is posterior and lateral soft tissue swelling within the knee and proximal calf. IMPRESSION: 1. No fracture or dislocation within the right knee. 2. Soft tissue swelling most pronounced posteriorly. ACT 112: Negative or not required by law. Electronically signed by: Kan Carr M.D. 05/19/2022 7:02 PM
[2022-05-19] MEDS: AMPICILLIN/SULBACTAM SOD 3,000 MG in 0.9 % SODIUM CHLORIDE 100 ML IV SCH (21:25)
[2022-05-19] MEDS ORDERED: Nursing to Pharmacy Communication SCH (22:30)
[2022-05-20] MEDS: AMPICILLIN/SULBACTAM SOD 3,000 MG in 0.9 % SODIUM CHLORIDE 100 ML IV SCH ×4 (05:50→21:53)
[2022-05-20 06:10] LABS: Hematocrit (blood only) 31.4 % (42.0-52.0); Hemoglobin 11.1 g/dl (14.0-18.0); Mean Corpuscular Hemoglobin 28.5 pg (25.0-34.0); Mean Corpuscular Hgb Conc 35.4 g/dL (32.0-36.0); Mean Corpuscular Volume 80.5 fL (80.0-100.0); Mean Platelet Volume 9.2 fL (9.4-12.4); Platelet Count 183 K/uL (130-400); RDW Coefficient of Variation 13.3 % (11.5-14.5); White Blood Count 11.97 K/ul (4.8-10.8)
[2022-05-20 06:31] LABS: BUN Creatinine Ratio 10.9 (10-20); Calcium 8.2 mg/dl (8.5-10.1); Creatinine Clr Calc Pharmacy 117.2 ml/min; Est GFR (African American) 102.4 ml/min; Est GFR (Non-African American) 88.4 ml/min; Potassium 3.1 mmol/L (3.5-5.1)
--- NOTE | 2022-05-20 06:33 | Ultrasound Report ---
RIGHT LOWER EXTREMITY VENOUS DOPPLER CLINICAL HISTORY: Right leg pain and swelling. COMPARISON STUDY: Right lower extremity venous Doppler ultrasound December 31, 2020. TECHNIQUE: Sonography of the deep venous system of the right lower extremity was performed. Compress ion and augmentation were evaluated. FINDINGS: The right common femoral, superficial femoral and popliteal veins were compressible. Augme ntation was normal. Flow was shown within the deep calf vessels. Prominent right inguinal lymph node has benign imaging characteristics. IMPRESSION: No evidence of deep venous thrombus within the right lower extremity. ACT 112: Negative or not required by law. Electronically signed by: Bebeto Cyr M.D. 05/20/2022 6:32 AM
[2022-05-20] MEDS ORDERED: POTASSIUM CHLORIDE CRTAB 20 MEQ TABCR PO STA (07:57)
[2022-05-20] MEDS: lisinopril 20 MG TAB PO SCH (10:32)
--- NOTE | 2022-05-20 13:04 | Dermatology Consultation ---
Date of Consultation May 20, 2022 Assessment & Plan (1) Cellulitis: Plan History and exam are c/w an infectious cellulitic process (i.e. erysipelas). Exam is not c/w vasculitis. Recommend the followin) Continue PCN-based antibiotic for 10-14 days total. Erysipelas is commonly caused by strep > staph. Agree with Unasyn while admitted. 2) D/w patient elevating the right leg above the level of the heart while resting to help reduce edema. 3) Defer skin biopsy at this point as it is not likely to provide any additional useful information. 4) Thanks for the consult. Call with any questions. History of Present Illness Reason for Consultation: Rash on right leg Requesting Physician: Radhika Soares MD Attending Physician: Radhika Soares MD History of Present Illness Patient is a 31 y/o male admitted to [facility] on 05/18/2022 with fever and rash involving the right lower leg. Patient reports that he woke up Thursday with acute-onset of redness, pain and swelling involving the right lower leg around the ankle. It gradually spread up the cabrales over the next 24 hours. He states that the day before he had some mild upper respiratory-type symptoms with a sore throat and runny nose, but otherwise he had been in a normal state of health. He presented to the ED on 05/18/2022 for evaluation due to worsening rash. He was started on IV ceftriaxone due to infection concern. He denies any recent trauma/skin breakdown involving the right lower leg that he can recall aside from skin breakdown between a couple of his toes back in February. No history of similar rash in the past. No close contacts with a rash. I was consulted d ue to concern for possible vasculitis. He was seen by Dr. Jasso yesterday, who was more concerned for an infectious process. Patient was switched to IV Unasyn yesterday, and blood cultures are pending. He denies any fever since yesterday and thinks that some of the redness is fading some. No other complaints today. 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 Allergies Allergy/AdvReac Type Severity Reaction Status Date / Time No Known Allergies Allergy Verified 05/18/22 17:07 Home Medications Medication Instructions Recorded Confirmed Type lisinopril 10 mg tablet 20 mg PO DAILY 02/10/22 05/18/22 History sumatriptan succinate 25 mg tablet See Rx Instructions PO .COMPLEX #8 02/10/22 05/18/22 Rx tabs lisinopril 10 mg tablet mg 05/18/22 History Patient History Medical History (Updated 05/20/22 @ 13:03 by Ken Spaulding MD) Hypertension Family History Denies family history of Clotting disorder Social History Smoking Status: Never smoker Second Hand Exposure: No; Do You Dip or Chew Tobacco: No; Hx Alcohol Use: Yes (hard cider) Alcohol type: other Hx Substance Use: No Preferred Language: Thai Communication Ability: Effective Steeple Jack Required: No Beliefs That Will Affect Care: None Current Living Situation: Other Current Living Situation Comment: university roommate Other Information That Helps Us Care for You: No Feels Safe at Home: Yes Safety Concerns: Feels Safe At This Time Assistive Devices: None Review of Systems Constitutional: as per Subjective / HPI Eyes: no worsening vision Ear, Nose, Mouth, Throat: + nasal congestion and + sore throat; no mouth lesions Respiratory: no cough and no dyspnea Gastrointestinal: no abdominal pain, no nausea, no vomiting and no diarrhea/loose stools Integumentary: as per Subjective / HPI Hematologic / Lymphatic: no easy bleeding and no easy bruising Physical Exam Physical Exam: General Appearance:Well developed, well-nourished and in no acute distress Psych:Alert, Oriented and Appropriate Skin Type:2 Right Lower Extremity: well-demarcated, edematous, warm, erythematous patch on the ankle/cabrales/calf; +mild lymphatic streaking on the proximal medial thigh Left Lower Extremity:no abnormalities noted Other exam notes: No palpable inguinal lymphadenopathy Results & Data ([facility]) Vital Signs (Past 12 Hours) Vital Signs Temp Pulse Resp BP Pulse Ox O2 Del Method 05/20/22 07:27 37.5 C 100 H 18 133/83 98 Room Air Laboratory Results 05/20/22 05/20/22 Range/Units 05:38 05:38 WBC 11.97 H (4.8-10.8) K/ul RBC 3.90 L (4.70-6.10) M/uL Hgb 11.1 L (14.0-18.0) g/dl Hct 31.4 L (42.0-52.0) % MCV 80.5 (80.0-100.0) fL MCH 28.5 (25.0-34.0) pg MCHC 35.4 (32.0-36.0) g/dL RDW Std Deviation 39.0 (36.4-46.3) fL RDW Coeff of Marcelino 13.3 (11.5-14.5) % Plt Count 183 (130-400) K/uL MPV 9.2 L (9.4-12.4) fL Sodium 137 (136-145) mmol/L Potassium 3.1 L (3.5-5.1) mmol/L Chloride 107 (98-107) mmol/L Carbon Dioxide 22 (21-32) mmol/L Anion Gap 8 (3-11) BUN 12 (6-23) mg/dl Creatinine 1.10 D (0.6-1.4) mg/dl Est Cr Clr Drug Dosing 117.2 ml/min Est GFR ( Amer) 102.4 ml/min Est GFR (Non-Af Amer) 88.4 ml/min BUN/Creatinine Ratio 10.9 (10-20) Glucose 141 H (70-99(Fasting)) mg/dl Calcium 8.2 L (8.5-10.1) mg/dl Diagnostic Findings Imaging studies reviewed in [facility] Blood Cultures: pending Medications Administered MAR reviewed in [facility] PG Care Time/CCT Total # of Minutes Spent Total Time Spent with Patient: Total time spent is greater than 50% in coordination of care (as documented) at patient's floor/unit and/or counseling patient: Coding Level of Care Code INP/OBS CONSULT LVL 2, 35 MIN Diagnoses Cellulitis L03.90 Laterality: right Site of cellulitis of extremity: lower extremity (1) Cellulitis Laterality: right Site of cellulitis of extremity: lower extremity
--- NOTE | 2022-05-20 13:55 | Hospitalist Progress Note ---
Date of Service May 20, 2022 Assessment & Plan (1) Cellulitis: Plan: -Presents with RLE Rash, warmth and redness -Occasional chiils and fevers, but none in the past 24 hrs -Area of redness is a little improved -Blood cultures negative so far -Will continue Unasyn (2) Fever: Plan: Cabrera/Adeno Positive, cellulitis No fever in the last 12 hrs (3) Hypertension: Plan: Hypertension Improved control since being on lisinopril Had prior renal/Matt/cortisol/metanephrine evaluation for severe hypertension, these were normal and renal artery duplex in 2019 was normal Has a history of horseshoe kidney with no UTI/stones, has yearly screening for proteinuria Continue lisinopril, amlodipine can be added if needed defer at time of admission (4) Migraine without aura: Plan: Migraines Follows with neurology, uses sumatriptan as needed Has a past history of hydrocephalus with operating 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 Pending next CT in approximately July (5) Hydrocephalus with operating shunt: (6) Rash: Plan DVT prophylaxis: Low risk Diet: Regular Disposition: Medical surgical CODE STATUS: Full Admission and Anticipated Discharge Date Admission Date: May 18, 2022 Subjective patient seen and examined, feels overall better, no more chills Review of Systems Review of Systems: All systems reviewed are negative, apart from the ones contained in the history. Physical Exam Physical Exam: The patient is awake, alert and oriented 3, well developed and well nourished, normocephalic and atraumatic, lying in bed and in no acute distress. HEENT--PERRL, EOMI, mucous membranes and oropharynx mildly dry Neck--supple. No JVD. No bruits. Thyroid normal, trachea midline, no adenopathy. Heart--normal S1 and S2. No murmurs, rubs or gallops. Lungs--clear bilaterally, no respiratory distress, no accessory muscle use. Abdomen--normal bowel sounds and soft. Mild epigastric and left sided abdominal pain Extremities--no cyanosis or clubbing. No edema. Dermatologic--right lower extremity rash Neurologic--cranial nerves II through XII grossly intact. Rheumatologic--normal range of motion. Psychiatric--normal affect. Results & Data Results & Data ([facility]) Vital Signs (Past 12 Hours) Vital Signs Temp Pulse Resp BP Pulse Ox O2 Del Method 05/20/22 07:27 99.5 F 100 H 18 133/83 98 Room Air PG Care Time/CCT Total # of Minutes Spent Total Time Spent with Patient: Total time spent is greater than 50% in coordination of care (as documented) at patient's floor/unit and/or counseling patient: Coding Level of Care Code 55515 SUB INP/OBS CARE 2/35MIN Diagnoses Cellulitis L03.90 Site of cellulitis of extremity: lower extremity Laterality: right Fever R50.9 Hypertension I10 Migraine without aura G43.009 Hydrocephalus with operating shunt G91.9 Rash R21 Time Spent (min) 35 (1) Cellulitis Site of cellulitis of extremity: lower extremity Laterality: right
[2022-05-20] MEDS ORDERED: FAMOTIDINE 10 MG TABLET PO ONE (21:45)
[2022-05-20] MEDS ORDERED: SIMETHICONE 80 MG CHEW PO PRN (21:45)
[2022-05-21] MEDS: traMADol HCL 50 MG TABLET PO PRN ×4 (00:26→21:30)
[2022-05-21] MEDS: AMPICILLIN/SULBACTAM SOD 3,000 MG in 0.9 % SODIUM CHLORIDE 100 ML IV SCH ×2 (04:23→09:12)
[2022-05-21 08:36] LABS: Hematocrit (blood only) 34.9 % (42.0-52.0); Mean Corpuscular Hemoglobin 28.4 pg (25.0-34.0); Mean Corpuscular Hgb Conc 34.4 g/dL (32.0-36.0); Mean Corpuscular Volume 82.7 fL (80.0-100.0); Mean Platelet Volume 9.1 fL (9.4-12.4); Platelet Count 204 K/uL (130-400); RDW Coefficient of Variation 13.3 % (11.5-14.5); RDW Standard Deviation 40.3 fL (36.4-46.3); Red Blood Count 4.22 M/uL (4.70-6.10); White Blood Count 9.05 K/ul (4.8-10.8)
[2022-05-21] MEDS: lisinopril 20 MG TAB PO SCH (08:49)
[2022-05-21 08:55] LABS: BUN Creatinine Ratio 10.9 (10-20); Calcium 8.5 mg/dl (8.5-10.1); Creatinine Clr Calc Pharmacy 140.2 ml/min; Est GFR (African American) 127.1 ml/min; Est GFR (Non-African American) 109.7 ml/min; Potassium 3.8 mmol/L (3.5-5.1)
[2022-05-21] MEDS ORDERED: VANCOMYCIN CONSULT ACTIVE PRN (13:29)
--- NOTE | 2022-05-21 13:29 | Hospitalist Progress Note ---
Date of Service May 21, 2022 Assessment & Plan (1) Cellulitis: Plan: -Presents with RLE Rash, warmth and redness -No fever or chills in the past 48 hrs -Area of redness is a little improved, but some blisters have developed -Blood cultures negative so far -Will change Unasyn to vancomycin on account of possible purulent cellulitis (2) Fever: Plan: Cabrera/Adeno Positive, cellulitis No fever in the last 48 hrs (3) Hypertension: Plan: Hypertension Improved control since being on lisinopril Had prior renal/Matt/cortisol/metanephrine evaluation for severe hypertension, these were normal and renal artery duplex in 2019 was normal Has a history of horseshoe kidney with no UTI/stones, has yearly screening for proteinuria Continue lisinopril, amlodipine can be added if needed defer at time of admission (4) Migraine without aura: Plan: Migraines Follows with neurology, uses sumatriptan as needed Has a past history of hydrocephalus with operating 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 Pending next CT in approximately July (5) Hydrocephalus with operating shunt: (6) Rash: Plan DVT prophylaxis: Low risk Diet: Regular Disposition: Medical surgical CODE STATUS: Full Admission and Anticipated Discharge Date Admission Date: May 18, 2022 Subjective patient seen and examined, feels overall better, no more chills Review of Systems Review of Systems: All systems reviewed are negative, apart from the ones contained in the history. Physical Exam Physical Exam: The patient is awake, alert and oriented 3, well developed and well nourished, normocephalic and atraumatic, lying in bed and in no acute distress. HEENT--PERRL, EOMI, mucous membranes and oropharynx mildly dry Neck--supple. No JVD. No bruits. Thyroid normal, trachea midline, no adenopathy. Heart--normal S1 and S2. No murmurs, rubs or gallops. Lungs--clear bilaterally, no respiratory distress, no accessory muscle use. Abdomen--normal bowel sounds and soft. Mild epigastric and left sided abdominal pain Extremities--no cyanosis or clubbing. No edema. Dermatologic--right lower extremity rash Neurologic--cranial nerves II through XII grossly intact. Rheumatologic--normal range of motion. Psychiatric--normal affect. Results & Data Results & Data ([facility]) Vital Signs (Past 12 Hours) Vital Signs Temp Pulse Resp BP Pulse Ox O2 Del Method 05/21/22 08:45 98.6 F 81 18 134/89 99 Room Air PG Care Time/CCT Total # of Minutes Spent Total Time Spent with Patient: Total time spent is greater than 50% in coordination of care (as documented) at patient's floor/unit and/or counseling patient: Coding Level of Care Code 71081 SUB INP/OBS CARE 2/35MIN Diagnoses Cellulitis L03.90 Site of cellulitis of extremity: lower extremity Laterality: right Fever R50.9 Hypertension I10 Migraine without aura G43.009 Hydrocephalus with operating shunt G91.9 Rash R21 Time Spent (min) 35 (1) Cellulitis Site of cellulitis of extremity: lower extremity Laterality: right
--- NOTE | 2022-05-21 13:58 | Pharmacy Report ---
Pharmacy PK ABX Note - Date of Service May 21, 2022 - Assessment and Plan Assessment 31 year old M receiving IV Vancomycin for treatment of possibly purulent RLE cellulitis. Patient was treated with Unasyn 05/19-05/21 - but due to possible purulence, changed to IV Vancomycin today. BCs no growth. WBC wnl, no fever/chills in past 48 hours. Day # 1 of Vancomycin. Plan Vancomycin * Loading dose: 2000 mg IV x 1 * Maintenance dose: 1250 mg IV every 12 hours * Regimen is predicted to achieve target AUC/COTY of 400-600 mg/L.hr * Random level ordered for: 05/23/22 Pharmacy will continue to follow and will adjust dose/frequency as necessary. Thank you. Pharmacy has transitioned to AUC monitoring for vancomycin. AUC/COTY is the preferred PK/PD target and is associated with decreased risk of nephrotoxicity compared to traditional trough targets.
[2022-05-21] MEDS ORDERED: VANCOMYCIN HCL 2,000 MG in SODIUM CHLORIDE 0.9% 500 ML IV ONE (14:00)
[2022-05-21] MEDS: VANCOMYCIN HCL 1,250 MG in SODIUM CHLORIDE 0.9% 250 ML IV SCH (23:01)
[2022-05-22 07:03] LABS: Hemoglobin 12.3 g/dl (14.0-18.0); Mean Corpuscular Hemoglobin 28.5 pg (25.0-34.0); Mean Corpuscular Hgb Conc 35.1 g/dL (32.0-36.0); Mean Corpuscular Volume 81.2 fL (80.0-100.0); Mean Platelet Volume 9.1 fL (9.4-12.4); Platelet Count 248 K/uL (130-400); RDW Coefficient of Variation 13.2 % (11.5-14.5); RDW Standard Deviation 39.3 fL (36.4-46.3); Red Blood Count 4.31 M/uL (4.70-6.10); White Blood Count 9.54 K/ul (4.8-10.8)
[2022-05-22 07:27] LABS: BUN Creatinine Ratio 12.8 (10-20); Calcium 8.5 mg/dl (8.5-10.1); Creatinine Clr Calc Pharmacy 149.9 ml/min; Est GFR (Non-African American) 114.7 ml/min; Potassium 3.9 mmol/L (3.5-5.1)
[2022-05-22] MEDS: lisinopril 20 MG TAB PO SCH (08:14)
[2022-05-22] MEDS: traMADol HCL 50 MG TABLET PO PRN (08:14)
[2022-05-22] MEDS: MUPIROCIN 2% OINT 22 GM TUBE EXT SCH ×3 (08:14→20:56)
[2022-05-22] MEDS: VANCOMYCIN HCL 1,250 MG in SODIUM CHLORIDE 0.9% 250 ML IV SCH ×2 (10:07→21:02)
--- NOTE | 2022-05-22 15:12 | Hospitalist Progress Note ---
Date of Service May 22, 2022 Assessment & Plan (1) Cellulitis: Plan: -Presents with RLE Rash, warmth and redness -No fever or chills in the past 48 hrs -Area of redness is a little improved, but some blisters have developed and some are weeping -Blood cultures negative so far -Initially on Unasyn, but changed to vancomycin on account of possible purulent cellulitis wound care on consult (2) Fever: Plan: Cabrera/Adeno Positive, cellulitis No fever in the last 48 hrs (3) Hypertension: Plan: Hypertension Improved control since being on lisinopril Had prior renal/Matt/cortisol/metanephrine evaluation for severe hypertension, these were normal and renal artery duplex in 2019 was normal Has a history of horseshoe kidney with no UTI/stones, has yearly screening for proteinuria Continue lisinopril, amlodipine can be added if needed defer at time of admission (4) Migraine without aura: Plan: Migraines Follows with neurology, uses sumatriptan as needed Has a past history 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 Pending next CT in approximately July (5) Hydrocephalus with operating shunt: (6) Rash: Plan DVT prophylaxis: Low risk Diet: Regular Disposition: Medical surgical CODE STATUS: Full Admission and Anticipated Discharge Date Admission Date: May 18, 2022 Subjective patient seen and examined, feels overall better, no more chills Review of Systems Review of Systems: All systems reviewed are negative, apart from the ones contained in the history. Physical Exam Physical Exam: The patient is awake, alert and oriented 3, well developed and well nourished, normocephalic and atraumatic, lying in bed and in no acute distress. HEENT--PERRL, EOMI, mucous membranes and oropharynx mildly dry Neck--supple. No JVD. No bruits. Thyroid normal, trachea midline, no adenopathy. Heart--normal S1 and S2. No murmurs, rubs or gallops. Lungs--clear bilaterally, no respiratory distress, no accessory muscle use. Abdomen--normal bowel sounds and soft. Mild epigastric and left sided abdominal pain Extremities--no cyanosis or clubbing. No edema. Dermatologic--right lower extremity rash Neurologic--cranial nerves II through XII grossly intact. Rheumatologic--normal range of motion. Psychiatric--normal affect. Results & Data Results & Data ([facility]) Vital Signs (Past 12 Hours) Vital Signs Temp Pulse Resp BP Pulse Ox O2 Del Method 05/22/22 14:40 98.2 F 76 16 117/74 97 Room Air 05/22/22 07:47 98.2 F 78 17 145/93 H 97 Room Air PG Care Time/CCT Total # of Minutes Spent Total Time Spent with Patient: Total time spent is greater than 50% in coordination of care (as documented) at patient's floor/unit and/or counseling patient: Coding Level of Care Code 10653 SUB INP/OBS CARE 2/35MIN Diagnoses Cellulitis L03.90 Site of cellulitis of extremity: lower extremity Laterality: right Fever R50.9 Hypertension I10 Migraine without aura G43.009 Hydrocephalus with operating shunt G91.9 Rash R21 Time Spent (min) 35 (1) Cellulitis Site of cellulitis of extremity: lower extremity Laterality: right
[2022-05-22 23:33] LABS: ANCA Screen Negative (Negative); Anti Nuclear Antibody Screen NEGATIVE (NEGATIVE); Rheumatoid Factor 17 IU/mL (<14)
[2022-05-23] MEDS: MUPIROCIN 2% OINT 22 GM TUBE EXT SCH ×3 (08:24→21:03)
[2022-05-23 09:07] LABS: Hematocrit (blood only) 35.7 % (42.0-52.0); Hemoglobin 12.2 g/dl (14.0-18.0); Mean Corpuscular Hemoglobin 27.9 pg (25.0-34.0); Mean Corpuscular Hgb Conc 34.2 g/dL (32.0-36.0); Mean Corpuscular Volume 81.7 fL (80.0-100.0); Mean Platelet Volume 9.1 fL (9.4-12.4); Platelet Count 300 K/uL (130-400); RDW Coefficient of Variation 12.9 % (11.5-14.5); RDW Standard Deviation 38.7 fL (36.4-46.3); Red Blood Count 4.37 M/uL (4.70-6.10); White Blood Count 11.02 K/ul (4.8-10.8)
[2022-05-23 09:17] LABS: BUN Creatinine Ratio 15.1 (10-20); Calcium 8.6 mg/dl (8.5-10.1); Creatinine Clr Calc Pharmacy 138.6 ml/min; Est GFR (African American) 125.5 ml/min; Est GFR (Non-African American) 108.2 ml/min; Potassium 4.1 mmol/L (3.5-5.1)
[2022-05-23] MEDS: VANCOMYCIN HCL 1,250 MG in SODIUM CHLORIDE 0.9% 250 ML IV SCH ×2 (09:26→20:55)
[2022-05-23] MEDS: lisinopril 20 MG TAB PO SCH (09:27)
--- NOTE | 2022-05-23 09:36 | Pharmacy Report ---
Pharmacy Vanc AUC Short Note - Date of Service May 23, 2022 - Assessment & Plan Assessment 31 year old M receiving vancomycin for treatment of skin infection. Pertinent microbiologic data includes: N/A. Day # 3 of antimicrobial therapy. Plan Vancomycin * AUC/COTY is the preferred PK/PD target for vancomycin * AUC guided dosing is effective and associated with decreased risk of nephrotoxicity compared to traditional trough targets * Trough level of 8.5 mcg/mL is predicted to achieve LESS THAN target AUC/COTY of 400-600 mg/L.hr and may be associated with a 5 % risk of nephrotoxicity * Change to 1250 mg IV every 8 hours * Trough prior to 1000 on 05/24/22 Pharmacy will continue to follow and will adjust dose/frequency as necessary. Thank you.
[2022-05-23] MEDS ORDERED: FUROSEMIDE 40 MG/4 ML VIAL IV ONE (13:44)
--- NOTE | 2022-05-23 13:54 | Hospitalist Progress Note ---
Date of Service May 23, 2022 Assessment & Plan (1) Cellulitis: Plan: -Presents with RLE Rash, warmth and redness -No fever or chills in the past 96 hrs -Area of redness is a little improved, but some blisters have developed and some are weeping, leg is swollen -Blood cultures negative so far -Initially on Unasyn, but changed to vancomycin on account of possible purulent cellulitis -wound care on consult -Will give a dose of Lasix to help with edema (2) Fever: Plan: Cabrera/Adeno Positive, cellulitis No fever in the last 96 hrs (3) Hypertension: Plan: Hypertension Improved control since being on lisinopril Had prior renal/Matt/cortisol/metanephrine evaluation for severe hypertension, these were normal and renal artery duplex in 2019 was normal Has a history of horseshoe kidney with no UTI/stones, has yearly screening for proteinuria Continue lisinopril, amlodipine can be added if needed defer at time of a dmission (4) Migraine without aura: Plan: Migraines Follows with neurology, uses sumatriptan as needed Has a past history of 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 Pending next CT in approximately July (5) Hydrocephalus with operating shunt: (6) Rash: Plan DVT prophylaxis: Low risk Diet: Regular Disposition: Medical surgical CODE STATUS: Full Admission and Anticipated Discharge Date Admission Date: May 18, 2022 Subjective patient seen and examined, feels overall better, no more chills, but some leg discomfort on ambulation Review of Systems Review of Systems: All systems reviewed are negative, apart from the ones contained in the history. Physical Exam Physical Exam: The patient is awake, alert and oriented 3, well developed and well nourished, normocephalic and atraumatic, lying in bed and in no acute distress. HEENT--PERRL, EOMI, mucous membranes and oropharynx mildly dry Neck--supple. No JVD. No bruits. Thyroid normal, trachea midline, no adenopathy. Heart--normal S1 and S2. No murmurs, rubs or gallops. Lungs--clear bilaterally, no respiratory distress, no accessory muscle use. Abdomen--normal bowel sounds and soft. Mild epigastric and left sided abdominal pain Extremities--no cyanosis or clubbing. No edema. Dermatologic--right lower extremity rash Neurologic--cranial nerves II through XII grossly intact. Rheumatologic--normal range of motion. Psychiatric--normal affect. Results & Data Results & Data ([facility]) Vital Signs (Past 12 Hours) Vital Signs Temp Pulse Resp BP Pulse Ox O2 Del Method 05/23/22 08:24 Room Air 05/23/22 07:26 98.2 F 67 16 123/76 97 Room Air PG Care Time/CCT Total # of Minutes Spent Total Time Spent with Patient: Total time spent is greater than 50% in coordination of care (as documented) at patient's floor/unit and/or counseling patient: Coding Level of Care Code 18842 SUB INP/OBS CARE 2/35MIN Diagnoses Cellulitis L03.90 Site of cellulitis of extremity: lower extremity Laterality: right Fever R50.9 Hypertension I10 Migraine without aura G43.009 Hydrocephalus with operating shunt G91.9 Rash R21 Time Spent (min) 35 (1) Cellulitis Site of cellulitis of extremity: lower extremity Laterality: right
[2022-05-23] MEDS ORDERED: Nursing to Pharmacy Communication SCH (18:15)
[2022-05-24] MEDS: VANCOMYCIN HCL 1,250 MG in SODIUM CHLORIDE 0.9% 250 ML IV SCH ×3 (03:44→21:00)
[2022-05-24] MEDS ORDERED: CALCIUM CARBONATE 500 MG CHEWABLE TAB PO STA (04:01)
[2022-05-24] MEDS: lisinopril 20 MG TAB PO SCH (09:29)
[2022-05-24] MEDS: MUPIROCIN 2% OINT 22 GM TUBE EXT SCH ×3 (09:29→21:01)
[2022-05-24] MEDS ORDERED: VANCOMYCIN LEVEL ONE (09:30)
[2022-05-24 10:02] LABS: Hematocrit (blood only) 36.2 % (42.0-52.0); Hemoglobin 12.5 g/dl (14.0-18.0); Mean Corpuscular Hemoglobin 28.2 pg (25.0-34.0); Mean Corpuscular Hgb Conc 34.5 g/dL (32.0-36.0); Mean Corpuscular Volume 81.5 fL (80.0-100.0); Platelet Count 375 K/uL (130-400); RDW Standard Deviation 38.5 fL (36.4-46.3); Red Blood Count 4.44 M/uL (4.70-6.10); White Blood Count 12.73 K/ul (4.8-10.8)
[2022-05-24 10:14] LABS: BUN Creatinine Ratio 16.3 (10-20); Calcium 9.1 mg/dl (8.5-10.1); Est GFR (African American) 109.6 ml/min; Est GFR (Non-African American) 94.6 ml/min; Potassium 4.3 mmol/L (3.5-5.1)
--- NOTE | 2022-05-24 10:36 | Pharmacy Report ---
Pharmacy PK ABX Note - Date of Service May 24, 2022 - Assessment and Plan Assessment 31 year old M receiving IV Vancomycin for treatment of possibly purulent RLE cellulitis. Patient was treated with Unasyn 05/19-05/21 - but due to possible purulence, changed to IV Vancomycin today. BCs no growth. WBC mildly uptrended over past 48 hrs, no fever/chills in past 48 hours. Day # 4 of Vancomycin. Plan Vancomycin * Level @ 0930: 17.7 which is therapeutic * Continue Maintenance dose of 1250mg q8h * Regimen is predicted to achieve target AUC/COTY of 400-600 mg/L.hr * Random level ordered for: 05/26/22 @0930, consider earlier if scr uptrends Pharmacy will continue to follow and will adjust dose/frequency as necessary. Thank you. Pharmacy has transitioned to AUC monitoring for vancomycin. AUC/COTY is the preferred PK/PD target and is associated with decreased risk of nephrotoxicity compared to traditional trough targets.
[2022-05-24] MEDS ORDERED: FUROSEMIDE 40 MG/4 ML VIAL IV ONE (11:17)
--- NOTE | 2022-05-24 14:12 | Hospitalist Progress Note ---
Date of Service May 24, 2022 Assessment & Plan (1) Cellulitis: Plan: -Presented with RLE Rash, warmth and redness -No fever or chills in the past 96 hrs -Area of redness is a little improved, but some blisters have developed and some are weeping, leg is swollen -Blood cultures negative so far -Initially on Unasyn, but changed to vancomycin on account of possible purulent cellulitis -Vanc level low, will adlust dosing -Continue wound care -Will give a dose of Lasix to help with edema (2) Fever: Plan: Cabrera/Adeno Positive, cellulitis No fever in the last 96 hrs (3) Hypertension: Plan: Hypertension Improved control since being on lisinopril Had prior renal/Matt/cortisol/metanephrine evaluation for severe hypertension, these were normal and renal artery duplex in 2019 was normal Has a history of horseshoe kidney with no UTI/stones, has yearly screening for proteinuria Continue lisinopril, amlodipine can be added if needed defer at time of admission (4) Migraine without aura: Plan: Migraines Follows with neurology, uses sumatriptan as needed Has a past history of 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 Pending next CT in approximately July (5) Hydrocephalus with operating shunt: (6) Rash: Plan DVT prophylaxis: Low risk Diet: Regular Disposition: Medical surgical CODE STATUS: Full Admission and Anticipated Discharge Date Admission Date: May 18, 2022 Subjective patient seen and examined, feels overall better, no more chills, improving leg swelling Review of Systems Review of Systems: All systems reviewed are negative, apart from the ones contained in the history. Physical Exam Physical Exam: The patient is awake, alert and oriented 3, well developed and well nourished, normocephalic and atraumatic, lying in bed and in no acute distress. HEENT--PERRL, EOMI, mucous membranes and oropharynx mildly dry Neck--supple. No JVD. No bruits. Thyroid normal, trachea midline, no adenopathy. Heart--normal S1 and S2. No murmurs, rubs or gallops. Lungs--clear bilaterally, no respiratory distress, no accessory muscle use. Abdomen--normal bowel sounds and soft. Mild epigastric and left sided abdominal pain Extremities--no cyanosis or clubbing. No edema. Dermatologic--right lower extremity rash Neurologic--cranial nerves II through XII grossly intact. Rheumatologic--normal range of motion. Psychiatric--normal affect. Results & Data Results & Data ([facility]) Vital Signs (Past 12 Hours) Vital Signs Temp Pulse Resp BP Pulse Ox O2 Del Method 05/24/22 07:04 98.6 F 73 16 127/77 95 Room Air PG Care Time/CCT Total # of Minutes Spent Total Time Spent with Patient: Total time spent is greater than 50% in coordination of care (as documented) at patient's floor/unit and/or counseling patient: Coding Level of Care Code 85079 SUB INP/OBS CARE 235MIN Diagnoses Cellulitis L03.90 Site of cellulitis of extremity: lower extremity Laterality: right Fever R50.9 Hypertension I10 Migraine without aura G43.009 Hydrocephalus with operating shunt G91.9 Rash R21 Time Spent (min) 35 (1) Cellulitis Site of cellulitis of extremity: lower extremity Laterality: right
[2022-05-24] MEDS ORDERED: COUGH DROP (SUGAR FREE) LOZ 24 LOZ/1 BOX BUCCAL ONE (15:40)
[2022-05-25] MEDS: VANCOMYCIN HCL 1,250 MG in SODIUM CHLORIDE 0.9% 250 ML IV SCH ×2 (04:22→11:56)
[2022-05-25 08:25] LABS: Hematocrit (blood only) 36.4 % (42.0-52.0); Hemoglobin 12.5 g/dl (14.0-18.0); Mean Corpuscular Hemoglobin 27.7 pg (25.0-34.0); Mean Corpuscular Hgb Conc 34.3 g/dL (32.0-36.0); Mean Corpuscular Volume 80.7 fL (80.0-100.0); Mean Platelet Volume 8.7 fL (9.4-12.4); Platelet Count 413 K/uL (130-400); RDW Coefficient of Variation 12.9 % (11.5-14.5); RDW Standard Deviation 37.4 fL (36.4-46.3); Red Blood Count 4.51 M/uL (4.70-6.10); White Blood Count 15.99 K/ul (4.8-10.8)
[2022-05-25 08:42] LABS: BUN Creatinine Ratio 19.1 (10-20); Calcium 9.1 mg/dl (8.5-10.1); Creatinine Clr Calc Pharmacy 137.2 ml/min; Est GFR (African American) 123.8 ml/min; Est GFR (Non-African American) 106.9 ml/min; Potassium 4.2 mmol/L (3.5-5.1)
[2022-05-25] MEDS: MUPIROCIN 2% OINT 22 GM TUBE EXT SCH (09:34)
[2022-05-25] MEDS: lisinopril 20 MG TAB PO SCH (09:49)
[2022-05-25] MEDS ORDERED: COUGH DROP (SUGAR FREE) LOZ 24 LOZ/1 BOX BUCCAL ONE (10:16)
[2022-05-25] MEDS ORDERED: FUROSEMIDE 40 MG/4 ML VIAL IV ONE (10:17)
--- NOTE | 2022-05-25 12:19 | XRay Report ---
XR chest 1V portable CLINICAL HISTORY: Cough. COMPARISON STUDY: Chest radiograph May 18, 2022. FINDINGS: DRYING RACK CHANGER shunt catheter is partially imaged. Lung volumes are normal. Lungs are clear. There is n o pneumothorax or pleural effusion. Cardiac size is normal. Mediastinal contours are normal. There is no evidence for pulmonary edema. IMPRESSION: No acute cardiopulmonary findings. ACT 112: Negative or not required by law. Electronically signed by: Bebeto Cyr M.D. 05/25/2022 12:17 PM
--- NOTE | 2022-05-25 13:12 | Discharge Summary ---
Date of Service May 25, 2022 Admission HPI Per Admitting Provider Jose Angel Ying is a 31 yo M with a PMHx of HTN, migraine who presented with fever 2 days ago and developed a non-blanchable rash on the RLE suspicious for vasculitis. WBC 15, procal 3, milk SILVIA. Cornovirus/rhino (non COVID). Lobo is seen at the bedside. He reports that he has a history of syncope with episodes that have appeared like seizures, but on extended continuous EEG on prior work-ups did not show seizure activity and had his Keppra stopped. This activity was thought to be due to syncopal episodes. He has a history of hydrocephalus for which she has a functioning DIRECTOR OF HOME CARE HOSPICE shunt. He reports that with past illnesses his migraines have gotten worse and he tends to feel generally weak, he does have a mild headache at time of assessment which she reports is normal for him in the setting of feeling ill and having some congestion. He reports his symptoms began 2 days ago when he noticed a small red patch on the distal/anterior portion of his ankle which rapidly expanded today. He has felt feverish with some chills. He has also had some sinus congestion and a mild cough without sputum production. He is not short of breath. He has not had any chest pain, chest pressure, lightheadedness, dizziness. Has not had any seizure-like episodes. He reports his blood pressure has been under generally good control, and he did take medication today. Is on lisinopril. Has not been on steroids before. No prior history of vasculitis. Denies past history of autoimmune disease, no known family history of autoimmune disease. He has not had a rash like this previously, notes he did have a fungal infection on his foot in high school which resolved with a steroid like cream but otherwise denies history of rashes/vasculitis. Medical History: Reviewed Medications: Reviewed Surgical History: Reviewed Allergies: Reviewed Social History: Reviewed, alcohol about 4 days/week, up to 2-3 in the setting with no signs of withdrawal during prior periods of cessation. No tobacco use Code Status: Full code Principal Diagnosis right lower extremity cellulitis Discharge Exam The patient is awake, alert and oriented 3, well developed and well nourished, normocephalic and atraumatic, lying in bed and in no acute distress. HEENT--PERRL, EOMI, mucous membranes and oropharynx mildly dry Neck--supple. No JVD. No bruits. Thyroid normal, trachea midline, no adenopathy. Heart--normal S1 and S2. No murmurs, rubs or gallops. Lungs--clear bilaterally, no respiratory distress, no accessory muscle use. Abdomen--normal bowel sounds and soft. Mild epigastric and left sided abdominal pain Extremities--no cyanosis or clubbing. No edema. Dermatologic--right lower extremity rash Neurologic--cranial nerves II through XII grossly intact. Rheumatologic--normal range of motion. Psychiatric--normal affect. Discharge Data Allergies Allergy/AdvReac Type Severity Reaction Status Date / Time No Known Allergies Allergy Verified 05/18/22 17:07 Consultations 05/18/22 19:18 ED Decision to Admit Stat 05/19/22 10:42 Consult General Surgery Routine 05/19/22 10:44 Consult Rheumatology Routine Ordered Studies 05/20/22 13:20 US venous doppler LE RT Routine Hospital Course (1) Cellulitis: -Presented with RLE Rash, warmth and redness -No fever or chills in the past 96 hrs -Area of cellulitis much improved with wound care and diuretics -Blood cultures negative so far Discharge on PO Zyvox for 7 days Follow up with Wound care outpatient (2) Fever: Cabrera/Adeno Positive, cellulitis No fever in the last 96 hrs (3) Hypertension: Hypertension Improved control since being on lisinopril Had prior renal/Matt/cortisol/metanephrine evaluation for severe hypertension, these were normal and renal artery duplex in 2019 was normal Has a history of horseshoe kidney with no UTI/stones, has yearly screening for proteinuria Continue lisinopril, amlodipine can be added if needed defer at time of admission (4) Migraine without aura: Migraines Follows with neurology, uses sumatriptan as needed Has a past history of hydrocephalus with operating DIRECTOR OF [facility] CARE HOSPICE shunt, stable. Pending next CT in approximately July (5) Hydrocephalus with operating shunt: (6) Rash: Plan DVT prophylaxis: Low risk Diet: Regular Disposition: Medical surgical CODE STATUS: Full Total Time Total Time Spent Total Time Spent (In Minutes): 35 Discharge Plan Discharge Items Patient Disposition: Home - Self-Care Reason For Visit: RLE RASH Discharge Diagnosis: right lower extremity cellulitis Activity: Resume your previous activity Non-emergency contact: Primary Care Provider Call non-emergency contact if: you have any medication questions Follow-up/Referrals: [facility] [Primary Care Provider] - (PLEASE MAKE A HOSPITAL FOLLOW UP VISIT WITHIN 7-10 BUSINESSS DAYS.) Diet: Regular Addtl Attending Provider Instructions: Please make appointment to follow up with wound care Pending Studies at Discharge: No Stand-Alone Forms: My [facility], Smoking Cessation Medications and DC Order Prescriptions: New linezolid [Zyvox] 600 mg tablet 600 mg PO BID 7 Days Qty: 14 0RF Continued sumatriptan succinate 25 mg tablet See Rx Instructions PO .COMPLEX Qty: 8 11RF Rx Instructions: take 1 tab at onset of headache; may repeat 1 tab after 2 hrs; max = 3 tabs per week lisinopril 10 mg tablet 20 mg PO DAILY Discontinued lisinopril 10 mg tablet Discharge Orders: Discharge Order (Routine); Ordered 05/25/22 Ordered By: Radhika Murrieta/Other Patient Handouts: Cellulitis Dc Admission Data Admit Date/Time: 05/18/22 18:34 Attending Provider: Radhika Soares Admit Provider: Joey Siu Primary Care Provider: [facility] Other Providers: Jatin Kamara ; Mehran Jasso ; Joey Siu Other Interventions: Discharge Summary Assessment (RN) Last Done: 05/25/22 12:26 Coding Level of Care Code HOSP INP/OBS DISCH >30 MIN Diagnoses Cellulitis L03.90 Site of cellulitis of extremity: lower extremity Laterality: right Fever R50.9 Hypertension I10 Migraine without aura G43.009 Hydrocephalus with operating shunt G91.9 Rash R21 Time Spent (min) 35
[2022-05-26] MEDS ORDERED: VANCOMYCIN LEVEL ONE ×2 (09:30→11:30)
--- NOTE | 2022-06-02 10:46 | Coding Query ---
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 Please assist us with the question(s) below: Coding Question(s): The diagnosis below was documented in the early chart or consult, then subsequently fell off all further documentation. Please indicate if it is still a possible diagnosis or ruled out. Physician's Response(s): NECROTIZING FASCIITIS - (documented only on 05/19 Rheumatology Consult w/concern for necrotizing fasciitis as well) ( ) Diagnosed and POA ( ) Diagnosed and not POA ( x ) Ruled out ( ) Other (please specify) PNA - (on H&P, under Cabrera/Adeno Positive, "CXR pending for 2ary PNA, covered with rocephin as otherwise noted if present", and on 05/19 PN, under fever, Cabrera/Adeno Positive, "CXR pending for 2ary PNA, covered with rocephin as otherwise noted if present") ( ) Diagnosed and POA. Please Specify further below, in your clinical opinion: ( ) PNA due to Specified etiology, Please Specify ( ) Unspecified PNA ( ) Diagnosed and not POA. Please Specify further below, in your clinical opinion: ( ) PNA due to Specified etiology, Please Specify ( ) Unspecified PNA ( x ) Ruled out ( ) Other (please specify) MTDD
== END 2022-05-25 14:05 | disposition home or self-care (01) | DRG 603 ==
LOC: ED 15:41 → 3N 18:34 → SUATTDRO 18:34 → 3N 20:00

== ENCOUNTER 2023-12-17 21:00 | Inpatient (IN) ==
[2023-12-17 22:03] LABS: Basophils # (auto) 0.03 K/uL (0.00-0.20); Basophils % (auto) 0.4 %; Eosinophils # (auto) 0.01 K/uL (0.00-0.50); Eosinophils % (auto) 0.1 %; Hematocrit (blood only) 38.8 % (42.0-52.0); Hemoglobin 13.3 g/dl (14.0-18.0); Immature Granulocytes # (auto) 0.04 K/uL (0.01-0.20); Immature Granulocytes % (auto) 0.5 %; Lymphocytes # (auto) 0.37 K/uL (1.20-3.40); Lymphocytes % (auto) 4.9 %; Mean Corpuscular Hemoglobin 26.9 pg (25.0-34.0); Mean Corpuscular Hgb Conc 34.3 g/dL (32.0-36.0); Mean Corpuscular Volume 78.4 fL (80.0-100.0); Mean Platelet Volume 9.2 fL (9.4-12.4); Monocytes # (auto) 0.46 K/uL (0.11-0.59); Monocytes % (auto) 6.1 %; Neutrophils # (auto) 6.57 K/uL (1.40-6.50); Platelet Count 265 K/uL (130-400); RDW Coefficient of Variation 12.5 % (11.5-14.5); RDW Standard Deviation 35.3 fL (36.4-46.3); Red Blood Count 4.95 M/uL (4.70-6.10); White Blood Count 7.48 K/ul (4.8-10.8)
[2023-12-17 22:17] LABS: Albumin Globulin Ratio 1.6 (0.9-2); Albumin Level 4.6 gm/dl (3.4-5.0); BUN Creatinine Ratio 13.6 (10-20); Bilirubin,Total 0.4 mg/dl (0.2-1.0); Calcium 9.8 mg/dl (8.6-10.3); Creatinine Clr Calc Pharmacy 102.7 ml/min; Est GFR (African American) 87.1 ml/min; Est GFR (Non-African American) 75.2 ml/min; Globulin 2.9 gm/dl (2.5-4.0); Magnesium 1.6 mg/dl (1.7-2.4); Potassium 2.9 mmol/L (3.5-5.1); Total Protein 7.5 gm/dl (6.0-8.3)
[2023-12-17 22:48] LABS: Adenovirus PCR Not Detected (NotDetected); Bordetella parapertussis PCR Not Detected (NotDetected); Bordetella pertussis PCR Not Detected (NotDetected); Chlamydia pneumoniae PCR Not Detected (NotDetected); Coronavirus 229E PCR Not Detected (NotDetected); Coronavirus CoV-2 (COVID19)PCR DETECTED (NotDetected); Coronavirus HKU1 PCR Not Detected (NotDetected); Coronavirus NL63 PCR Not Detected (NotDetected); Coronavirus OC43PCR Not Detected (NotDetected); Human Metapneumovirus PCR Not Detected (NotDetected); Influenza A PCR Not Detected (NotDetected); Influenza B PCR Not Detected (NotDetected); Mycoplasma pneumoniae PCR Not Detected (NotDetected); Parainfluenza Virus 1 PCR Not Detected (NotDetected); Parainfluenza Virus 2 PCR Not Detected (NotDetected); Parainfluenza Virus 3 PCR Not Detected (NotDetected); Parainfluenza Virus 4 PCR Not Detected (NotDetected); Respiratory Syncytial VirusPCR Not Detected (NotDetected); Rhinovirus/Enterovirus PCR Not Detected (NotDetected)
[2023-12-17] MEDS: ONDANSETRON INJ 2 MG/ML 2 ML VIAL IV STA (22:55)
[2023-12-17] MEDS: POTASSIUM CHLORIDE / WTR 10 MEQ/100 ML PLCT IV ONE (23:11)
[2023-12-17] MEDS: MAGNESIUM SULFATE / D5W 1 GM/100 ML BAG IV STA (23:11)
[2023-12-17] MEDS: SODIUM CHLORIDE 0.9% 1,000 ML IV ONE (23:12)
[2023-12-17] MEDS: ONDANSETRON INJ 2 MG/ML 2 ML VIAL ONE (23:20)
--- NOTE | 2023-12-17 23:27 | Emergency Department Note ---
Impression & Plan Syncope, Dehydration, COVID-19, Hypomagnesemia, Hypokalemia, FINANCE PROFESSIONAL (ventriculoperitoneal) shunt status ED Provider Note NAME: DANIELA CANNON II AGE: 32 SEX: M : 1990 ARRIVES VIA: Ambulance INFORMANT: Patient ED PROVIDER(S): Noel Villanueva MD CHIEF COMPLAINT: Syncope PLAN: Disposition: Admit MEDICAL DECISION MAKING: The patient is a pleasant 32-year-old gentleman with a past medical history of congenital hydrocephalus with history of left frontal FINANCE PROFESSIONAL shunt, history of migraine headaches, history of convulsive syncope with negative EEG monitoring in the past, hypertension who presents to the emergency department via EMS for evaluation of syncope where the patient was found [place] in the setting of the patient's report of feeling onset of a migraine with associated nausea and vomiting. Patient ports he had been feeling sick for several hours. He does admit having cough and congestion with nausea and diarrhea over the past several days. He denies chest pain or shortness of breath. On evaluation the patient is uncomfortable no distress, afebrile stable vital signs. He appears clinically dry. He has no focal neurologic deficits. Neck is supple full range of motion. EKG without overt acute ischemia. CXR negative for acute cardiopulmonary process per my personal preliminary review/interpretation. WBC within normal limits. There is no left shift. Platelets within normal limits. H/H 13.3/38.8 similar to prior values. Chemistry with mild metabolic acidosis with anion gap of 17 and bicarbonate of 19 likely related to the patient's poor oral intake with ongoing nausea and vomiting. LFTs unremarkable. Respiratory BioFire was positive for COVID-19. CT of the head was negative for acute abnormalities with stable findings and FINANCE PROFESSIONAL shunt visualized. Of note, the patient was treated with IV fluid hydration, Zofran but was complaining of worsening headache and nausea and so I was unable to tolerate initial attempt at CT. Subsequently he was additionally treated with IV APAP, dexamethasone for migraine as well as diphenhydramine and Compazine for migraine. Of note following administration of Compazine and I was alerted by staff that the patient appeared to have a seizure-like episode but she has a which upon my assessment appears consistent with parkinsonism which may have been related to the Compazine as the patient's eyes were open with tonic flexion of his RUE and his vital signs were unchanged with normal O2 saturation. The patient was given 1 mg of IV Ativan though less likely to reflect a seizure episode other at this time. Case was discussed with Dr. Barlow, [facility] hospitalist, who will evaluate the patient for admission. Further management per admitting team. Triage Nursing notes reviewed and agree them. Prior/external medical records reviewed Vital Signs: reviewed Differential diagnosis: Vasovagal event, dehydration, infection, hypoglycemia, electrolyte abnormalities, cardiac sources, intracerebral event, pulmonary embolism, seizure, toxicologic, neurologic, as well as other pathologies. ER treatment provided: See below. Diagnostics interpreted by me: ECG: NSR, 87 bpm, no ectopy, no overt ST elevation or depression. Cardiac Monitoring: An order for continuous cardiac monitoring was placed and demonstrated NSR, 87 bpm, no ectopy Laboratory studies: See below Imaging studies: See below Consultation(s): Case was discussed with Dr. Barlow, [facility] hospitalist, who will evaluate the patient for admission. 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 Patient ports he had been feeling sick for several hours. He does admit having cough and congestion with nausea and diarrhea over the past several days. He denies chest pain or shortness of breath. ROS: See above HPI for pertinent positives & negatives. A total of 10 systems reviewed and were otherwise negative. VITALS:See Below PHYSICAL EXAMINATION: GENERAL: Awake, alert, uncomfortable-appearing, in no distress HENT: Normocephalic, atraumatic. Oropharynx with dry mucous membranes and otherwise unremarkable. EYES: Normal conjunctiva. Sclera non-icteric. EOMI. No nystamgus. PEARRL. NECK: Supple. No nuchal rigidity. FROM. No JVD. RESPIRATORY: Clear to auscultation. CARDIAC: Regular rate, normal rhythm. Extremities warm and well perfused. Pulses equal. ABDOMEN: Soft, non-distended. No tenderness to palpation. No rebound or guarding. No masses. MUSCULOSKELETAL: Chest examination reveals no tenderness. The back is symmetrical on inspection without obvious abnormality. There is no CVA tenderness to palpation. No joint edema. LOWER EXTREMITIES: Calves are equal size bilaterally and non-tender. No edema. No discoloration. NEURO: Normal sensorium. No sensory or motor deficits noted. 5/5 strength and SILT x 4 extremities. Cerebellar function intact including [id number], alternating palms, [id number]. SKIN: No rash or jaundice noted. Noel Villanueva MD Past Med/Surg History Problem List (Updated 12/18/23 @ 09:50 by Zachary Dugan MD) FINANCE PROFESSIONAL (ventriculoperitoneal) shunt status (Acute) Hypokalemia (Acute) Hypomagnesemia (Acute) COVID-19 (Acute) Dehydration (Acute) Syncope (Acute) Cellulitis Vasculitis (Acute) Fever (Acute) Rash (Acute) Hydrocephalus with operating shunt Convulsive syncope Migraine without aura Hypertension Hypertensive emergency Family History Denies family history of Clotting disorder Social History Smoking Status: Never smoker Second Hand Exposure: No; Do You Dip or Chew Tobacco: No; Hx Alcohol Use: Yes Alcohol type: other Hx Substance Use: No Preferred Language: Peruvian Communication Ability: Effective 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 Beliefs That Will Affect Care: None Current Living Situation: Other Current Living Situation Comment: Living with friends Other Information That Helps Us Care for You: No Feels Safe at Home: Yes Assistive Devices: None Allergies Allergies Allergy/AdvReac Type Severity Reaction Status Date / Time No Known Allergies Allergy Verified 12/17/23 21:03 Home Meds Home Medications Medication Instructions Recorded Confirmed chlorthalidone 25 mg tablet 25 mg PO QAM 12/17/23 12/17/23 lisinopril 20 mg tablet 20 mg PO QAM 12/17/23 12/17/23 Previous Rx's Medication Instructions Recorded sumatriptan succinate 25 mg tablet See Rx Instructions PO .COMPLEX #9 03/05/23 tabs Results & Data (ED) Vital Signs Vital Signs - 24 hr 12/17/23 20:53 12/17/23 21:06 12/17/23 21:18 Temperature 36.3 C L Temperature Source Oral Pulse Rate 89 88 Pulse Rate [Apical] Pulse Rate from SpO2 Sensor Pulse Rhythm Pulse Rhythm [Apical] Respiratory Rate 20 Respiratory Effort / Characteristics Non-Labored Spontaneous Respiratory Depth Normal Respiratory Pattern Regular Blood Pressure 121/85 Blood Pressure [Right Arm] Blood Pressure Mean 97 Blood Pressure Mean [Right Arm] Pulse Oximetry 100 100 Oxygen Delivery Method Room Air Room Air Sepsis Recent Fever Within 48 Hours No Sepsis New/Unexplained Change in Mental Status No Sepsis Action Taken by Nursing No Action Required 12/17/23 21:18 12/17/23 21:30 12/17/23 21:35 Temperature Temperature Source Pulse Rate 88 90 83 Pulse Rate [Apical] Pulse Rate from SpO2 Sensor 88 89 Pulse Rhythm Regular Pulse Rhythm [Apical] Respiratory Rate 17 12 18 Respiratory Effort / Characteristics Respiratory Depth Respiratory Pattern Blood Pressure 121/85 132/78 Blood Pressure [Right Arm] Blood Pressure Mean 97 92 Blood Pressure Mean [Right Arm] Pulse Oximetry 100 100 100 Oxygen Delivery Method Room Air Room Air Room Air Sepsis Recent Fever Within 48 Hours Sepsis New/Unexplained Change in Mental Status Sepsis Action Taken by Nursing 12/17/23 21:45 12/17/23 22:00 12/17/23 22:30 Temperature Temperature Source Pulse Rate 86 81 93 H Pulse Rate [Apical] Pulse Rate from SpO2 Sensor 88 83 91 H Pulse Rhythm Pulse Rhythm [Apical] Respiratory Rate 22 30 H 27 H Respiratory Effort / Characteristics Respiratory Depth Respiratory Pattern Blood Pressure 142/83 H 120/71 Blood Pressure [Right Arm] Blood Pressure Mean 102 87 Blood Pressure Mean [Right Arm] Pulse Oximetry 100 100 99 Oxygen Delivery Method Room Air Room Air Room Air Sepsis Recent Fever Within 48 Hours Sepsis New/Unexplained Change in Mental Status Sepsis Action Taken by Nursing 12/17/23 22:30 12/17/23 23:30 12/17/23 23:36 Temperature Temperature Source Pulse Rate 102 H 99 H Pulse Rate [Apical] 102 H Pulse Rate from SpO2 Sensor 100 H 101 H Pulse Rhythm Pulse Rhythm [Apical] Regular Respiratory Rate 26 H 24 33 H Respiratory Effort / Characteristics Respiratory Depth Normal Respiratory Pattern Blood Pressure 120/71 142/82 H Blood Pressure [Right Arm] 145/89 H Blood Pressure Mean 83 102 Blood Pressure Mean [Right Arm] 107 Pulse Oximetry 99 99 100 Oxygen Delivery Method Room Air Room Air Room Air Sepsis Recent Fever Within 48 Hours Sepsis New/Unexplained Change in Mental Status Sepsis Action Taken by Nursing 12/18/23 00:00 12/18/23 00:30 12/18/23 01:00 Temperature Temperature Source Pulse Rate 101 H 57 L Pulse Rate [Apical] 81 Pulse Rate from SpO2 Sensor 102 H 63 Pulse Rhythm Pulse Rhythm [Apical] Respiratory Rate 20 17 23 Respiratory Effort / Characteristics Respiratory Depth Respiratory Pattern Blood Pressure 134/90 154/99 H Blood Pressure [Right Arm] 136/80 Blood Pressure Mean 104 107 Blood Pressure Mean [Right Arm] 98 Pulse Oximetry 100 100 97 Oxygen Delivery Method Room Air Room Air Room Air Sepsis Recent Fever Within 48 Hours Sepsis New/Unexplained Change in Mental Status Sepsis Action Taken by Nursing 12/18/23 01:00 12/18/23 01:26 12/18/23 01:30 Temperature Temperature Source Pulse Rate 80 82 88 Pulse Rate [Apical] Pulse Rate from SpO2 Sensor 79 88 Pulse Rhythm Pulse Rhythm [Apical] Respiratory Rate 15 26 H Respiratory Effort / Characteristics Respiratory Depth Respiratory Pattern Blood Pressure 136/80 134/76 Blood Pressure [Right Arm] Blood Pressure Mean 97 97 Blood Pressure Mean [Right Arm] Pulse Oximetry 98 97 Oxygen Delivery Method Room Air Room Air Sepsis Recent Fever Within 48 Hours Sepsis New/Unexplained Change in Mental Status Sepsis Action Taken by Nursing 12/18/23 01:39 12/18/23 02:00 12/18/23 02:00 Temperature Temperature Source Pulse Rate 85 Pulse Rate [Apical] Pulse Rate from SpO2 Sensor 86 Pulse Rhythm Pulse Rhythm [Apical] Respiratory Rate 19 Respiratory Effort / Characteristics Respiratory Depth Respiratory Pattern Blood Pressure 132/93 132/93 Blood Pressure [Right Arm] Blood Pressure Mean 108 108 Blood Pressure Mean [Right Arm] Pulse Oximetry 98 Oxygen Delivery Method Sepsis Recent Fever Within 48 Hours Sepsis New/Unexplained Change in Mental Status Sepsis Action Taken by Nursing 12/18/23 02:06 12/18/23 02:18 12/18/23 02:30 Temperature Temperature Source Pulse Rate 99 H 92 H Pulse Rate [Apical] Pulse Rate from SpO2 Sensor 98 H 90 Pulse Rhythm Pulse Rhythm [Apical] Respiratory Rate 17 20 Respiratory Effort / Characteristics Respiratory Depth Respiratory Pattern Blood Pressure 129/83 Blood Pressure [Right Arm] Blood Pressure Mean 102 Blood Pressure Mean [Right Arm] Pulse Oximetry 96 93 Oxygen Delivery Method Sepsis Recent Fever Within 48 Hours Sepsis New/Unexplained Change in Mental Status Sepsis Action Taken by Nursing 12/18/23 02:30 Temperature Temperature Source Pulse Rate Pulse Rate [Apical] Pulse Rate from SpO2 Sensor Pulse Rhythm Pulse Rhythm [Apical] Respiratory Rate Respiratory Effort / Characteristics Respiratory Depth Respiratory Pattern Blood Pressure 129/83 Blood Pressure [Right Arm] Blood Pressure Mean 102 Blood Pressure Mean [Right Arm] Pulse Oximetry Oxygen Delivery Method Sepsis Recent Fever Within 48 Hours Sepsis New/Unexplained Change in Mental Status Sepsis Action Taken by Nursing Laboratory Data Attestation: I reviewed the patient's lab results. 12/17/23 21:30 12/18/23 12:01 Lab Results 12/17/23 12/17/23 Range/Units 21:30 23:02 WBC 7.48 (4.8-10.8) K/ul RBC 4.95 (4.70-6.10) M/uL Hgb 13.3 L (14.0-18.0) g/dl Hct 38.8 L (42.0-52.0) % MCV 78.4 L (80.0-100.0) fL MCH 26.9 (25.0-34.0) pg MCHC 34.3 (32.0-36.0) g/dL RDW Std Deviation 35.3 L (36.4-46.3) fL RDW Coeff of Marcelino 12.5 (11.5-14.5) % Plt Count 265 (130-400) K/uL MPV 9.2 L (9.4-12.4) fL Immature Gran % (Auto) 0.5 % Neut % (Auto) 88.0 % Lymph % (Auto) 4.9 % Sabine % (Auto) 6.1 % Eos % (Auto) 0.1 % Baso % (Auto) 0.4 % Neut # (Auto) 6.57 H (1.40-6.50) K/uL Lymph # (Auto) 0.37 L (1.20-3.40) K/uL Sabine # (Auto) 0.46 (0.11-0.59) K/uL Eos # (Auto) 0.01 (0.00-0.50) K/uL Baso # (Auto) 0.03 (0.00-0.20) K/uL Immature Gran # (Auto) 0.04 (0.01-0.20) K/uL Sodium 131 L (136-145) mmol/L Potassium 2.9 L (3.5-5.1) mmol/L Chloride 95 L (98-107) mmol/L Carbon Dioxide 19 L (21-32) mmol/L Anion Gap 17 H (3-11) BUN 17 (6-23) mg/dl Creatinine 1.25 (0.6-1.4) mg/dl Est Cr Clr Drug Dosing 102.7 ml/min Est GFR ( Amer) 87.1 ml/min Est GFR (Non-Af Amer) 75.2 ml/min BUN/Creatinine Ratio 13.6 (10-20) Glucose 145 H (70-99(Fasting)) mg/dl Calcium 9.8 (8.6-10.3) mg/dl Magnesium 1.6 L (1.7-2.4) mg/dl Total Bilirubin 0.4 (0.2-1.0) mg/dl AST 20 (13-39) U/L ALT 26 (7-52) U/L Alkaline Phosphatase 76 (34-104) U/L Total Protein 7.5 (6.0-8.3) gm/dl Albumin 4.6 (3.4-5.0) gm/dl Globulin 2.9 (2.5-4.0) gm/dl Albumin/Globulin Ratio 1.6 (0.9-2) Ethyl Alcohol mg/dL < 10.0 (<10.0) mg/dl Adenovirus (PCR) Not Detected (NotDetected) B. pertussis DNA (PCR) Not Detected (NotDetected) B.parapertussis DNA PCR Not Detected (NotDetected) C. pneumoniae DNA (PCR) Not Detected (NotDetected) Coronavirus OC43 (PCR) Not Detected (NotDetected) Coronavirus HKU1 (PCR) Not Detected (NotDetected) Coronavirus 229E (PCR) Not Detected (NotDetected) SARS-CoV-2 (PCR) DETECTED A (NotDetected) Coronavirus NL63 (PCR) Not Detected (NotDetected) Human Metapneumovir PCR Not Detected (NotDetected) Influenza Type A (PCR) Not Detected (NotDetected) Influenza Type B (PCR) Not Detected (NotDetected) M. pneumoniae (PCR) Not Detected (NotDetected) Parainfluenza 1 (PCR) Not Detected (NotDetected) Parainfluenza 2 (PCR) Not Detected (NotDetected) Parainfluenza 3 (PCR) Not Detected (NotDetected) Parainfluenza 4 (PCR) Not Detected (NotDetected) RSV (PCR) Not Detected (NotDetected) Entero/Rhino (PCR) Not Detected (NotDetected) Administered Medications Potassium Chloride/Sodium Chloride (Normal Saline W/20 Meq Kcl) 20 meq in 1,000 mls @ 60 mls/hr IV .[id number] AJ Stop: 12/18/23 19:24 Last Admin: 12/18/23 02:48 Dose: 60 mls/hr Documented By: FAMILIA Dexamethasone 6 mg/ Syringe 1.5 mls @ 1 mls/min IV Q24H AJ Stop: 01/17/24 08:59 Last Admin: 12/18/23 09:48 Dose: 1 mls/min Documented By: CARMELLA Lisinopril (Lisinopril 20 Mg Tab) 20 mg PO QAM AJ Stop: 01/17/24 08:59 Last Admin: 12/18/23 09:48 Dose: 20 mg Documented By: CARMELLA Discontinued Medications Dexamethasone Sodium Phosphate (DexamethasonePf 10 Mg/Ml Vial) 10 mg IV NOW ONE Stop: 12/17/23 23:26 Last Admin: 12/18/23 00:16 Dose: 10 mg Documented By: DEWAYNE Diphenhydramine HCl (Diphenhydramine 50 Mg/Ml Vial) 25 mg IV NOW STA Stop: 12/17/23 23:26 Last Admin: 12/18/23 00:16 Dose: 25 mg Documented By: DEWAYNE Sodium Chloride (Nss) 1,000 mls @ 999 mls/hr IV .Q1H1M ONE Stop: 12/17/23 23:20 Last Infusion: 12/18/23 00:15 Dose: Infused Documented By: Admin: 12/17/23 23:12 Dose: 999 mls/hr Documented By: FAMILIA Potassium Chloride (K Lit / Wtr) 10 meq in 100 mls @ 100 mls/hr IV ONE ONE Stop: 12/17/23 23:19 Last Infusion: 12/18/23 00:15 Dose: Infused Documented By: Admin: 12/17/23 23:11 Dose: 100 mls/hr Documented By: FAMILIA Magnesium Sulfate/Dextrose (Magnesium Sulfate / D5w) 1 gm in 100 mls @ 100 mls/hr IV NOW STA Stop: 12/17/23 23:21 Last Infusion: 12/18/23 00:15 Dose: Infused Documented By: Admin: 12/17/23 23:11 Dose: 100 mls/hr Documented By: FAMILIA Acetaminophen (Ofirmev) 1,000 mg in 100 mls @ 400 mls/hr IV NOW STA Stop: 12/17/23 23:38 Last Infusion: 12/18/23 00:50 Dose: Infused Documented By: Admin: 12/18/23 00:34 Dose: 400 mls/hr Documented By: DEWAYNE Famotidine (Pepcid 20mg Iv Push) 20 mg in 5 mls @ 2.5 mls/min IV NOW STA Stop: 12/17/23 23:26 Last Admin: 12/18/23 00:22 Dose: 2.5 mls/min Documented By: DEWAYNE Prochlorperazine (Compazine) 1 mls @ 1 mls/min IV ONE ONE Stop: 12/17/23 23:26 Last Admin: 12/18/23 00:16 Dose: 1 mls/min Documented By: DEWAYNE Sodium Chloride (Nss) 1,000 mls @ 999 mls/hr IV .Q1H1M ONE Stop: 12/18/23 02:13 Last Infusion: 12/18/23 03:00 Dose: Infused Documented By: Admin: 12/18/23 02:00 Dose: 999 mls/hr Documented By: FAMILIA Magnesium Sulfate/Dextrose (Magnesium Sulfate / D5w) 1 gm in 100 mls @ 50 mls/hr IV ONE STA Stop: 12/18/23 04:24 Last Infusion: 12/18/23 04:40 Dose: Infused Documented By: Admin: 12/18/23 02:48 Dose: 50 mls/hr Documented By: FAMILIA Potassium Chloride (K Lit / Wtr) 10 meq in 100 mls @ 100 mls/hr IV ONE STA Stop: 12/18/23 03:46 Last Infusion: 12/18/23 06:20 Dose: Infused Documented By: [id number] Admin: 12/18/23 04:41 Dose: 100 mls/hr Documented By: JOSUE Lorazepam (Lorazepam 1 Mg/1 Ml Syr Ed Inj Use) Confirm Administered Dose 1 mg .ROUTE .STK-MED ONE Stop: 12/18/23 00:26 Last Admin: 12/18/23 00:32 Dose: Not Given Documented By: DEWAYNE Lorazepam (Lorazepam 2 Mg/1 Ml Vial) 1 mg IV NOW STA Stop: 12/18/23 00:32 Last Admin: 12/18/23 00:34 Dose: Not Given Documented By: DEWAYNE Lorazepam (Lorazepam 1 Mg/1 Ml Syr Ed Inj Use) 1 mg IV ONE STA Stop: 12/18/23 00:41 Last Admin: 12/18/23 00:25 Dose: 1 mg Documented By: DEWAYNE Ondansetron HCl (Ondansetron Inj 2 Mg/Ml 2 Ml Vial) Confirm Administered Dose 4 mg .ROUTE .STK-MED ONE Stop: 12/17/23 22:45 Last Admin: 12/17/23 23:20 Dose: Not Given Documented By: FAMILIA Ondansetron HCl (Ondansetron Inj 2 Mg/Ml 2 Ml Vial) 4 mg IV NOW STA Stop: 12/17/23 22:46 Last Admin: 12/17/23 22:55 Dose: 4 mg Documented By: FAMILIA Imaging Data Radiologist's Impression: Chest X-Ray 12/17/23 22:20 XR chest 1V portable HISTORY: syncope COMPARISON: Chest 05/25/2022. FINDINGS: The lungs are clear. Cardiac silhouette is normal in size. No pleural effusions. No pneumothorax. IMPRESSION: No acute process. ACT 112: Negative or not required by law. Electronically signed by: Kna Carr M.D. 12/18/2023 7:31 AM Discharge Plan Visit Data Chief Complaint: Syncope Stated Complaint: Syncope, N/V ED Provider: Noel Villanueva Discharge Problem: Syncope, Dehydration, COVID-19, Hypomagnesemia, Hypokalemia, FINANCE PROFESSIONAL (ventriculoperitoneal) shunt status Patient Disposition: Admitted As Inpatient Discharge Instructions Interventions: ED Discharge Assessment Last Done: 12/18/23 05:49 Discharge Problem: Syncope Qualifiers: Syncope type: unspecified Qualified Code(s): R55 - Syncope and collapse
[2023-12-18] MEDS: diphenhydrAMINE 50 MG/ML VIAL IV STA (00:16)
[2023-12-18] MEDS: dexAMETHasone**PF** 10 MG/ML VIAL IV ONE (00:16)
[2023-12-18] MEDS: PROCHLORPERAZINE 1 ML IV ONE (00:16)
[2023-12-18] MEDS: FAMOTIDINE 20MG IV PUSH 20 MG/5 ML SYR IV STA (00:22)
[2023-12-18] MEDS: LORazepam 1 MG/1 ML SYR ED Inj Use IV STA (00:25)
[2023-12-18] MEDS: LORazepam 1 MG/1 ML SYR ED Inj Use ONE (00:32)
[2023-12-18] MEDS: LORazepam 2 MG/1 ML VIAL IV STA (00:34)
[2023-12-18] MEDS: ACETAMINOPHEN 1,000 MG/100 ML VIAL IV STA (00:34)
--- NOTE | 2023-12-18 01:24 | CT Scan Report ---
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 TECHNIQUE: Axial computed tomography images of the head/brain without intravenous contrast. CTDI is 36.43 mGy and DLP is 702.46 mGy-cm. Automated exposure control was utilized for the study. A dose lowering technique was utilized adhering to the principles of ALARA. COMPARISON: 01/30/2033 FINDINGS: Brain: Unremarkable. No hemorrhage. No significant white matter disease. No edema. Ventricles: Unremarkable. No ventriculomegaly. Bones/joints: See below. Soft tissues: Unremarkable. Sinuses: Unremarkable as visualized. No acute sinusitis. Mastoid air cells: Unremarkable as visualized. No mastoid effusion. Tubes, lines and devices: stable positioning of ventricular drain entering the left frontal bur holes stable when compared to prior exam. No acute fracture or dislocation. Bone windows demonstrate no focal abnormality. IMPRESSION: No acute findings in the head/brain. Electronically signed by: González David MD 12/18/23 01:23 AM
[2023-12-18] MEDS: SODIUM CHLORIDE 0.9% 1,000 ML IV ONE (02:00)
[2023-12-18] MEDS ORDERED: ACETAMINOPHEN 1,000 MG/100 ML VIAL IV PRN (02:22)
[2023-12-18] MEDS ORDERED: LORazepam 2 MG/1 ML VIAL IV PRN (02:26)
--- NOTE | 2023-12-18 02:38 | History & Physical Report ---
Date of Service December 18, 2023 Assessment & Plan (1) Syncope: (2) FLOOR CARE TECHNICIAN (ventriculoperitoneal) shunt status: (3) Hydrocephalus with operating shunt: (4) Convulsive syncope: (5) Hypokalemia: (6) Hypomagnesemia: (7) COVID-19: (8) Dehydration: (9) Hypertension: (10) Migraine without aura: Plan Syncopal episode/congenital hydrocephalus status post FLOOR CARE TECHNICIAN shunt/headache- CT scan of head shows stable appearing FLOOR CARE TECHNICIAN shunt going through left-sided bur holes Chest x-ray with no acute findings BioFire test positive for COVID Hypomagnesia 1.6 Hypokalemia 2.9 The patient will be admitted to telemetry for cardiac rhythm monitoring Acetaminophen 1 g IV every 8 hours as needed for mild pain or fever Lorazepam 1 mg IV every 4 hours as needed for anxiety/agitation/seizure type activity Zofran 4 mg IV every 6 hours as needed Order EEG Seizure precautions Consult neurology COVID infection/intractable headache- Given dexamethasone 10 mg IV from the ED Continue dexamethasone 6 mg IV every morning Hypokalemia/hypomagnesemia/dehydration/hypertension- Given KCl 10 mill equivalent IV rider by the ED and magnesium sulfate 1 g IV from the ED Given additional K rider and mag rider NSS + KCl 20 mill equivalents at 60 mL/h x 1 L Hold chlorthalidone Continue lisinopril Repeat laboratories at 11 AM this morning, and every a.m. History of Present Illness Chief Complaint: The patient presents to the emergency department via EMS following a syncopal episode where the patient was found on the ground [place], preceded by a migraine with nausea and vomiting. Primary Care Provider: NO PCP The patient is a 32-year-old male with a past medical history of left frontal FLOOR CARE TECHNICIAN shunt for treatment of congenital hydrocephalus, history of migraine headaches, history of convulsive syncope, and hypertension. He reports feeling unwell for the past 4 days, and then today was found as noted above. He reports these syncopal episodes have occurred whenever he is feeling unwell for other reasons such as viral processes. Allergies Allergy/AdvReac Type Severity Reaction Status Date / Time No Known Allergies Allergy Verified 12/17/23 21:03 Home Medications Medication Instructions Recorded Confirmed Type sumatriptan succinate 25 mg tablet See Rx Instructions PO .COMPLEX #9 03/05/23 12/17/23 Rx tabs chlorthalidone 25 mg tablet 25 mg PO QAM 12/17/23 12/17/23 History lisinopril 20 mg tablet 20 mg PO QAM 12/17/23 12/17/23 History Past Med/Surg History Problem List (Updated 12/18/23 @ 02:21 by Noel Villanueva MD) FLOOR CARE TECHNICIAN (ventriculoperitoneal) shunt status (Acute) Hypokalemia (Acute) Hypomagnesemia (Acute) COVID-19 (Acute) Dehydration (Acute) Syncope (Acute) Cellulitis Vasculitis (Acute) Fever (Acute) Rash (Acute) Hydrocephalus with operating shunt Convulsive syncope Migraine without aura Hypertension Hypertensive emergency Family History Denies family history of Clotting disorder Social History Smoking Status: Never smoker Second Hand Exposure: No; Do You Dip or Chew Tobacco: No; Hx Alcohol Use: Yes (hard cider) Alcohol type: other Hx Substance Use: No Preferred Language: Sri Lankan Communication Ability: Effective Gas Line Servicer Required: No Beliefs That Will Affect Care: None Current Living Situation: Other Current Living Situation Comment: university roommate Feels Safe at Home: Yes Assistive Devices: None Review of Systems Review of Systems: The patient denies chest pain, palpitations, shortness of breath, dyspnea on exertion, cough, lower extremity swelling, sore throat, fevers, chills, sweats, diarrhea , constipation, abdominal pain, pelvic pain, blood in urine or stool, dysuria, urinary frequency or urgency, rash, abnormal bruising or bleeding, focal weakness, numbness or tingling in arms or legs, generalized arthralgias or myalgias, back or neck pain, or night sweats. The review of systems is otherwise negative other than for that already noted above, and at least 10 systems have been reviewed. Physical Exam Physical Exam: The patient is awake, alert and oriented 3, well developed and well nourished, normocephalic and atraumatic, lying in bed and in no acute distress. HEENT--PERRL, EOMI, mucous membranes and oropharynx mildly dry. Neck--supple. No JVD. No bruits. Thyroid normal, trachea midline, no adenopathy. Heart--normal S1 and S2. No murmurs, rubs or gallops. Lungs--clear bilaterally, no respiratory distress, no accessory muscle use. Abdomen--normal bowel sounds and soft. Nontender. Nondistended, no hernias or masses, no organomegaly. Extremities--no cyanosis or clubbing. No edema. There are good distal pulses b/l. Dermatologic--normal skin turgor, normal color, no abnormal lymph nodes, no rash. Neurologic--cranial nerves II through XII grossly intact. Rheumatologic--normal range of motion. Psychiatric--normal affect. Results & Data Results & Data Vital Signs (Past 12 Hours) Vital Signs Temp Pulse Pulse Resp BP BP Pulse Ox 12/18/23 01:30 88 26 H 134/76 97 12/18/23 01:26 82 12/18/23 01:00 80 15 136/80 98 12/18/23 01:00 81 23 136/80 97 12/18/23 00:30 57 L 17 154/99 H 100 12/18/23 00:00 101 H 20 134/90 100 12/17/23 23:36 99 H 33 H 142/82 H 100 12/17/23 23:30 102 H 24 145/89 H 99 12/17/23 22:30 102 H 26 H 120/71 99 12/17/23 22:30 93 H 27 H 120/71 99 12/17/23 22:00 81 30 H 142/83 H 100 12/17/23 21:45 86 22 100 12/17/23 21:35 83 18 100 12/17/23 21:30 90 12 132/78 100 12/17/23 21:18 88 17 121/85 100 12/17/23 21:18 88 12/17/23 21:06 36.3 C L 89 20 121/85 100 12/17/23 20:53 100 O2 Del Method 12/18/23 01:30 Room Air 12/18/23 01:26 12/18/23 01:00 Room Air 12/18/23 01:00 Room Air 12/18/23 00:30 Room Air 12/18/23 00:00 Room Air 12/17/23 23:36 Room Air 12/17/23 23:30 Room Air 12/17/23 22:30 Room Air 12/17/23 22:30 Room Air 12/17/23 22:00 Room Air 12/17/23 21:45 Room Air 12/17/23 21:35 Room Air 12/17/23 21:30 Room Air 12/17/23 21:18 Room Air 12/17/23 21:18 12/17/23 21:06 Room Air 12/17/23 20:53 Room Air Laboratory Results Laboratory Results WBC 7.48 K/ul (4.8-10.8) 12/17/23 21:30 RBC 4.95 M/uL (4.70-6.10) 12/17/23 21:30 Hgb 13.3 g/dl (14.0-18.0) L 12/17/23 21:30 Hct 38.8 % (42.0-52.0) L 12/17/23 21:30 MCV 78.4 fL (80.0-100.0) L 12/17/23 21:30 MCH 26.9 pg (25.0-34.0) 12/17/23 21:30 MCHC 34.3 g/dL (32.0-36.0) 12/17/23 21:30 RDW Std Deviation 35.3 fL (36.4-46.3) L 12/17/23 21:30 RDW Coeff of Marcelino 12.5 % (11.5-14.5) 12/17/23 21:30 Plt Count 265 K/uL (130-400) 12/17/23 21:30 MPV 9.2 fL (9.4-12.4) L 12/17/23 21:30 Immature Gran % (Auto) 0.5 % 12/17/23 21:30 Neut % (Auto) 88.0 % 12/17/23 21:30 Lymph % (Auto) 4.9 % 12/17/23 21:30 Weakley % (Auto) 6.1 % 12/17/23 21:30 Eos % (Auto) 0.1 % 12/17/23 21:30 Baso % (Auto) 0.4 % 12/17/23 21:30 Neut # (Auto) 6.57 K/uL (1.40-6.50) H 12/17/23 21:30 Lymph # (Auto) 0.37 K/uL (1.20-3.40) L 12/17/23 21:30 Weakley # (Auto) 0.46 K/uL (0.11-0.59) 12/17/23 21:30 Eos # (Auto) 0.01 K/uL (0.00-0.50) 12/17/23 21:30 Baso # (Auto) 0.03 K/uL (0.00-0.20) 12/17/23 21:30 Immature Gran # (Auto) 0.04 K/uL (0.01-0.20) 12/17/23 21:30 Sodium 131 mmol/L (136-145) L 12/17/23 21:30 Potassium 2.9 mmol/L (3.5-5.1) L 12/17/23 21:30 Chloride 95 mmol/L (98-107) L 12/17/23 21:30 Carbon Dioxide 19 mmol/L (21-32) L 12/17/23 21:30 Anion Gap 17 (3-11) H 12/17/23 21:30 BUN 17 mg/dl (6-23) 12/17/23 21:30 Creatinine 1.25 mg/dl (0.6-1.4) 12/17/23 21:30 Est Cr Clr Drug Dosing 102.7 ml/min 12/17/23 21:30 Est GFR ( Amer) 87.1 ml/min 12/17/23 21:30 Est GFR (Non-Af Amer) 75.2 ml/min 12/17/23 21:30 BUN/Creatinine Ratio 13.6 (10-20) 12/17/23 21:30 Glucose 145 mg/dl (70-99(Fasting)) H 12/17/23 21:30 Calcium 9.8 mg/dl (8.6-10.3) 12/17/23 21:30 Magnesium 1.6 mg/dl (1.7-2.4) L 12/17/23 21:30 Total Bilirubin 0.4 mg/dl (0.2-1.0) 12/17/23 21:30 AST 20 U/L (13-39) 12/17/23 21:30 ALT 26 U/L (7-52) 12/17/23 21:30 Alkaline Phosphatase 76 U/L (34-104) 12/17/23 21:30 Total Protein 7.5 gm/dl (6.0-8.3) 12/17/23 21:30 Albumin 4.6 gm/dl (3.4-5.0) 12/17/23 21:30 Globulin 2.9 gm/dl (2.5-4.0) 12/17/23 21:30 Albumin/Globulin Ratio 1.6 (0.9-2) 12/17/23 21:30 Ethyl Alcohol mg/dL < 10.0 mg/dl (<10.0) 12/17/23 23:02 Adenovirus (PCR) Not Detected (NotDetected) 12/17/23 21:30 B. pertussis DNA (PCR) Not Detected (NotDetected) 12/17/23 21:30 B.parapertussis DNA PCR Not Detected (NotDetected) 12/17/23 21:30 C. pneumoniae DNA (PCR) Not Detected (NotDetected) 12/17/23 21:30 Coronavirus OC43 (PCR) Not Detected (NotDetected) 12/17/23 21:30 Coronavirus HKU1 (PCR) Not Detected (NotDetected) 12/17/23 21:30 Coronavirus 229E (PCR) Not Detected (NotDetected) 12/17/23 21:30 SARS-CoV-2 (PCR) DETECTED (NotDetected) A 12/17/23 21:30 Coronavirus NL63 (PCR) Not Detected (NotDetected) 12/17/23 21:30 Human Metapneumovir PCR Not Detected (NotDetected) 12/17/23 21:30 Influenza Type A (PCR) Not Detected (NotDetected) 12/17/23 21:30 Influenza Type B (PCR) Not Detected (NotDetected) 12/17/23 21:30 M. pneumoniae (PCR) Not Detected (NotDetected) 12/17/23 21:30 Parainfluenza 1 (PCR) Not Detected (NotDetected) 12/17/23 21:30 Parainfluenza 2 (PCR) Not Detected (NotDetected) 12/17/23 21:30 Parainfluenza 3 (PCR) Not Detected (NotDetected) 12/17/23 21:30 Parainfluenza 4 (PCR) Not Detected (NotDetected) 12/17/23 21:30 RSV (PCR) Not Detected (NotDetected) 12/17/23 21:30 Entero/Rhino (PCR) Not Detected (NotDetected) 12/17/23 21:[address] 12/17/23 22:20 Exam(s): CT HEAD Without Contrast EXAM: CT Head Without Intravenous Contrast CLINICAL HISTORY: Reason for exam: syncope, FLOOR CARE TECHNICIAN shunt. TECHNIQUE: Axial computed tomography images of the head/brain without intravenous contrast. CTDI is 36.43 mGy and DLP is 702.46 mGy-cm. Automated exposure control was utilized for the study. A dose lowering technique was utilized adhering to the principles of ALARA. COMPARISON: 01/30/2033 FINDINGS: Brain: Unremarkable. No hemorrhage. No significant white matter disease. No edema. Ventricles: Unremarkable. No ventriculomegaly. Bones/joints: See below. Soft tissues: Unremarkable. Sinuses: Unremarkable as visualized. No acute sinusitis. Mastoid air cells: Unremarkable as visualized. No mastoid effusion. Tubes, lines and devices: stable positioning of ventricular drain entering the left frontal bur holes stable when compared to prior exam. No acute fracture or dislocation. Bone windows demonstrate no focal abnormality. IMPRESSION: No acute findings in the head/brain. Electronically signed by: González David MD 12/18/23 01:23 AM Code Status & VTE Plan Code Status Full code VTE Prophylaxis Plan VTE Prophylaxis will be ordered: Yes PG Care Time/CCT Total # of Minutes Spent Total Time Spent with Patient: Total time spent is greater than 50% in coordination of care (as documented) at patient's floor/unit and/or counseling patient: Coding Level of Care Code 37278 INT INP/OBS CARE 3/75MIN Diagnoses Syncope R55 FLOOR CARE TECHNICIAN (ventriculoperitoneal) shunt status Z98.2 Hydrocephalus with operating shunt G91.9 Convulsive syncope R55 Hypokalemia E87.6 Hypomagnesemia E83.42 COVID-19 U07.1 Dehydration E86.0 Hypertension I10 Migraine without aura G43.009
[2023-12-18] MEDS: NSS + 20MEQ KCL 20 MEQ/1,000 ML BAG IV SCH (02:48)
[2023-12-18] MEDS: MAGNESIUM SULFATE / D5W 1 GM/100 ML BAG IV STA (02:48)
[2023-12-18 03:17] LABS: Appearance Urine Clear (Clear); Bilirubin Urine Negative (Negative); Blood Urine Negative (Negative); Color Urine Yellow; Glucose Urine UA Negative (Negative); Ketones Urine 2+ (Negative); Leukocyte Esterase Urine Negative (Negative); Nitrite Urine Negative (Negative); Protein Urine Negative (Negative); Specific Gravity Urine 1.024 (1.000-1.030); Urobilinogen Urine Negative (Negative); pH Urine 7.5 (4.5-7.5)
[2023-12-18 03:45] LABS: Amphetamines+Metham, Urine Neg (Neg); Barbiturates, Urine Neg (Neg); Benzodiazepine, Urine Neg (Neg); Cocaine, Urine Neg (Neg); Fentanyl, Urine Neg (Neg); MDMA (Ecstacy), Urine Neg (Neg); Marijuana, Urine Neg (Neg); Methadone, Urine Neg (Neg); Opiate, Urine Neg (Neg); Phencyclidine, Urine Neg (Neg)
[2023-12-18] MEDS: POTASSIUM CHLORIDE / WTR 10 MEQ/100 ML PLCT IV STA (04:41)
[2023-12-18] MEDS ORDERED: ONDANSETRON INJ 2 MG/ML 2 ML VIAL IV PRN (05:50)
--- OUTSIDE RECORDS SUMMARY | 2023-12-18 07:06 | External Medical Summary | Continuity of Care Document ---
Author Name Unknown Organization [facility] [address] [place], [place] [address] Address [address] [place] [phone] Care Team Providers Care Medical Educator Name Role Phone Yovani Carrasco Primary Care Physician [phone] Encounter [id number] Date(s): 10/22/23 - 10/22/23 [facility] [address] [id number] [facility] [address] [address] Encounter Diagnosis Injury of right ring finger(Discharge Diagnosis) - 10/22/23 Discharge Disposition: Home or Self Care Attending Physician: CHONG Ratliff, Kathryn Wells Allergies, Adverse Reactions, Alerts No Known Medication Allergies Medications chlorthalidone 25 mg oral tablet Start: 09/14/23 2:34:00 PM EDT, 1 tab, PO, Daily Start Date: 09/14/23 Status: Ordered lisinopril 20 mg oral tablet Start: 09/14/23 2:34:00 PM EDT, 1 tab, PO, Daily Start Date: 09/14/23 Status: Ordered ondansetron Start: 09/14/23 2:35:00 PM EDT, prn Start Date: 09/14/23 Status: Ordered SUMAtriptan Start: 09/14/23 2:35:00 PM EDT, prn Start Date: 09/14/23 Status: Ordered Mental Status 10/22/23 Barriers to Learning one year None evide nt Mandatory Health Literacy Documentation Yes Health Literacy Communication Barriers N ever Primary Language Slovak Problem List Condition Confirmation Course Effective Dates Status H ealth Status Informant Hydrocephalus 1 Confirmed Active High blood pressure Confirmed Active Injury of right ring finger Confirmed Active 1convulsive syncope Diagnosis Diagnosis Type Effective Dates Health Status Cl inical Service Informant Injury of right ring finger Discharge Diagnosis 10/22/23 Procedures Procedure Date Related Diagnosis Body Site Status Hernia Completed Hydrocephalus 1 Completed [place] tooth Completed 12 surgeries Social History Social History Type Response Smoking Status Never smoked cigaret waqar Sex Male Sex Representation Male (finding) Ortho Outpt Note * MD Cullen, Tom A: MODIFY MD Cullen, Tom A: MODIFY Event Display: Ortho Outpt Note Authored Date: [id number] Name:DANIELA CANNON Patient Number:[id number] :1990 Date of Service:10/22/2023 CHIEF COMPLAINT: Follow-up right ring finger HPI: Daniela is a pleasant [id number]-[id number], yentv-[id number]-[id number], 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 He went to health services where x-rays were obtained. [place] spl[place] and [place]. Hehas been in an AlumaFoam splint since his initial appointment. He has tried working on ROM but has not yet been able to make a full fist secondary to residual swelling and stiffness. Herates his pain a 0/10 PHYSICAL EXAM: Focusing on the patient's right upper extremity: BCR <2 seconds. Sensation light touch is intact distally Motor to: FDS, FDP, and extension are intact. - Rotational deformity -Tenderness to palpation RFDIP joint + Swelling about the DIP joint Redness noted from the splint RADIOGRAPHY: I obtained and personally interpreted 2 views of the right ring finger, stored in [facility],which shows avulsion fracture is completely consolidated [facility] of the right ring finger, which showessentially nondisplaced avulsion type fracture off the volaraspect of the distal phalanx. IMPRESSION: Right ring finger distal phalanx avulsion fracture, nondisplaced, closed,healed,subsequent visit. Acute Goals: Decrease pain, improved ROM. PLAN: RICE. Short course of anti-inflammatories, alternating with Tylenol as needed for pain. Discontinue splint. Van tape for activity.Instructed on AAROM exercises to improve ROM Follow-up 6 weeks for clinical evaluation The patient understood all my instructions and explanation; all their questions were satisfactorilyaddressed. ATTESTATION: IDebby, scribing forand in the presence of, Tom Berman, on this date,10/22/2023 16:22:03. I, Dr. Berman, saw and examined the patient with Debby Ambriz acting as my scribe. I reviewed the note and agree with the documented findings and the plan of care I developed. Electronic Signature on File Electronically Reviewed/Signed by: Debby Ambriz Author Signature Dt/Tm:10/22/2023 04:29 PM Electronically Reviewed/Signed by: Tom Berman MD Cosigner Signature Dt/Tm: 10/22/2023 04:46 PM [facility] [employer] Department of Orthopaedics and Rehabilitation [facility] [address], [place] [address] [place] Patient Care team information Personnel Name: DO Carrasco Curtis P Address: [address] [place] [id number]
--- NOTE | 2023-12-18 07:32 | XRay Report ---
XR chest 1V portable HISTORY: syncope COMPARISON: Chest 05/25/2022. FINDINGS: The lungs are clear. Cardiac silhouette is normal in size. No pleural effusions. No pneumot horax. IMPRESSION: No acute process. ACT 112: Negative or not required by law. Electronically signed by: Kan Carr M.D. 12/18/2023 7:31 AM
[2023-12-18] MEDS: lisinopril 20 MG TAB PO SCH (09:48)
[2023-12-18] MEDS: dexAMETHasone 6 MG in SYRINGE 0 ML IV SCH (09:48)
--- NOTE | 2023-12-18 09:51 | Neurology Consultation ---
Date of Consultation December 18, 2023 Assessment & Plan (1) COVID-19: (2) Syncope: History of Present Illness Attending Physician: Cheko Barlow MD History of Present Illness 32 yo male, well known to neurology clinic, followed by one of Arlene (Miriam Chilel) for hx of headache and syncopal event. pt with known prior hx of headache PATIENT TRANSPORT ORDERLY shunt. pt this morning feeling much better and headache improving also. no weakness. no speech problem. CT head negative. pt in isolation for covid +. pt has been sick with URI symptoms and vomiting/diarrhea for few days. chart reviewed. admission HPI: The patient is a pleasant 32-year-old gentleman with a past medical history of congenital hydrocephalus with history of left frontal PATIENT TRANSPORT ORDERLY shunt, history of migraine headaches, history of convulsive syncope with negative EEG monitoring in the past, hypertension who presents to the emergency department via EMS for evaluation of syncope where the patient was found on the ground [place] in the setting of the patient's report of feeling onset of a migraine with associated nausea and vomiting. Patient ports he had been feeling sick for several hours. He does admit having cough and congestion with nausea and diarrhea over the past several days. He denies chest pain or shortness of breath. On evaluation the patient is uncomfortable no distress, afebrile stable vital s igns. He appears clinically dry. He has no focal neurologic deficits. EKG without overt acute ischemia. CXR negative for acute cardiopulmonary process per my personal preliminary review/interpretation. WBC within normal limits. There is no left shift. Platelets within normal limits. H/H 13.3/38.8 similar to prior values. Chemistry with mild metabolic acidosis with anion gap of 17 and bicarbonate of 19 likely related to the patient's ongoing nausea and vo CT of the head was negative for acute abnormalities with stable findings and PATIENT TRANSPORT ORDERLY shunt visualized. Of note, the patient was treated with IV fluid hydration, Zofran but was complaining of worsening headache and nausea and so I was unable to tolerate initial attempt at CT. Subsequently he was additionally treated with IV APAP, dexamethasone for migraine as well as diphenhydramine and Compazine for migraine. Of note Chadwick administration of Compazine and I was alerted by staff that the patient appeared to have a seizure-like episode but she has a which upon my assessment appears consistent with parkinsonism which may have been related to the Compazine as the patient's eyes were open with tonic flexion of his RUE and his vital signs were not significantly changed with normal O2 saturation. The patient was given 1 mg of IV Ativan though less likely to reflect a seizure episode other at this time. Allergies Allergy/AdvReac Type Severity Reaction Status Date / Time No Known Allergies Allergy Verified 12/17/23 21:03 Home Medications Medication Instructions Recorded Confirmed Type sumatriptan succinate 25 mg tablet See Rx Instructions PO .COMPLEX #9 03/05/23 12/17/23 Rx tabs chlorthalidone 25 mg tablet 25 mg PO QAM 12/17/23 12/17/23 History lisinopril 20 mg tablet 20 mg PO QAM 12/17/23 12/17/23 History Patient History Family History Denies family history of Clotting disorder Social History Smoking Status: Never smoker Second Hand Exposure: No; Do You Dip or Chew Tobacco: No; Hx Alcohol Use: Yes Alcohol type: other Hx Substance Use: No Preferred Language: Turkish Communication Ability: Effective 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 Coord: intact FNT b/l Impression: 32 yo male with likely syncopal event in setting of dehydration, covid infection, headache. Not suggestion of seizure. pt clinically doing well and stable this morning. Recommendations: no further work up needed from neurology no need for EEG, please cancel the order covid tx as now. pt already on steroid course for covid tx, which will help with his headache. place him back on the outpt headache regiment for prn breakthrough, zofran prn and also increase imitrex to 100mg po prn headache. plenty of hydration correct electrolytes CT head normal, no concern for PATIENT TRANSPORT ORDERLY shunt. call again if new question. Chart reviewed I have spent more than 50% educating patient about potential diagnosis and neurological evaluation and coordinating care with patient's treatment team. Total time spent (including chart review and coordination of care): 45 min (this includes chart review). Results & Data Vital Signs (Past 12 Hours) Vital Signs Temp Pulse Pulse Resp BP BP BP 12/18/23 08:36 36.8 C 110 H 19 122/74 12/18/23 06:00 36.6 C 94 H 18 125/80 12/18/23 05:49 36.8 C 85 18 113/70 12/18/23 05:00 100 H 21 12/18/23 05:00 113/70 12/18/23 05:00 113/70 12/18/23 05:00 113/70 12/18/23 04:33 69 9 L 12/18/23 04:30 134/90 12/18/23 04:30 134/90 12/18/23 04:30 36.8 C 94 H 18 134/90 12/18/23 04:09 96 H 18 12/18/23 04:01 117/67 12/18/23 03:57 93 H 19 12/18/23 03:30 88 19 12/18/23 03:30 140/83 12/18/23 03:30 140/83 12/18/23 03:30 140/83 12/18/23 03:30 140/83 12/18/23 03:03 86 19 12/18/23 03:01 121/69 12/18/23 03:01 121/69 12/18/23 03:01 121/69 12/18/23 03:01 121/69 12/18/23 03:00 92 H 20 121/69 12/18/23 02:51 103 H 16 12/18/23 02:39 101 H 11 L 12/18/23 02:30 129/83 12/18/23 02:30 129/83 12/18/23 02:18 92 H 20 12/18/23 02:06 99 H 17 12/18/23 02:00 132/93 12/18/23 02:00 132/93 12/18/23 01:39 85 19 12/18/23 01:30 88 26 H 134/76 12/18/23 01:26 82 12/18/23 01:00 80 15 136/80 12/18/23 01:00 81 23 136/80 12/18/23 00:30 57 L 17 154/99 H 12/18/23 00:00 101 H 20 134/90 12/17/23 23:36 99 H 33 H 142/82 H 12/17/23 23:30 102 H 24 145/89 H 12/17/23 22:30 102 H 26 H 120/71 12/17/23 22:30 93 H 27 H 120/71 12/17/23 22:00 81 30 H 142/83 H 12/17/23 21:45 86 22 Pulse Ox O2 Del Method 12/18/23 08:36 99 Room Air 12/18/23 06:00 96 Room Air 12/18/23 05:49 99 Room Air 12/18/23 05:00 12/18/23 05:00 12/18/23 05:00 12/18/23 05:00 12/18/23 04:33 97 12/18/23 04:30 12/18/23 04:30 12/18/23 04:30 99 Room Air 12/18/23 04:09 12/18/23 04:01 12/18/23 03:57 12/18/23 03:30 100 12/18/23 03:30 12/18/23 03:30 12/18/23 03:30 12/18/23 03:30 12/18/23 03:03 99 12/18/23 03:01 12/18/23 03:01 12/18/23 03:01 12/18/23 03:01 12/18/23 03:00 99 Room Air 12/18/23 02:51 100 12/18/23 02:39 96 12/18/23 02:30 12/18/23 02:30 12/18/23 02:18 93 12/18/23 02:06 96 12/18/23 02:00 12/18/23 02:00 12/18/23 01:39 98 12/18/23 01:30 97 Room Air 12/18/23 01:26 12/18/23 01:00 98 Room Air 12/18/23 01:00 97 Room Air 12/18/23 00:30 100 Room Air 12/18/23 00:00 100 Room Air 12/17/23 23:36 100 Room Air 12/17/23 23:30 99 Room Air 12/17/23 22:30 99 Room Air 12/17/23 22:30 99 Room Air 12/17/23 22:00 100 Room Air 12/17/23 21:45 100 Room Air PG Care Time/CCT Total # of Minutes Spent Total Time Spent with Patient: Total time spent is greater than 50% in coordination of care (as documented) at patient's floor/unit and/or counseling patient: Coding Level of Care Code 19678 IN/OBS CONSULT LVL 3,45M Diagnoses COVID-19 U07.1 Syncope, unspecified syncope type R55 Syncope type: unspecified (2) Syncope Syncope type: unspecified Qualified Code(s): R55 - Syncope and collapse
--- NOTE | 2023-12-18 11:10 | Hospitalist Progress Note ---
Date of Service December 18, 2023 Assessment & Plan (1) Syncope: (2) RECEPTION CLERK (ventriculoperitoneal) shunt status: (3) Hydrocephalus with operating shunt: (4) Convulsive syncope: (5) Hypokalemia: (6) Hypomagnesemia: (7) COVID-19: (8) Dehydration: (9) Hypertension: (10) Migraine without aura: Plan Syncopal episode/congenital hydrocephalus status post RECEPTION CLERK shunt/headache- CT scan of head shows stable appearing RECEPTION CLERK shunt going through left-sided bur holes Chest x-ray with no acute findings BioFire test positive for COVID Feels better today Acetaminophen 1 g IV every 8 hours as needed for mild pain or fever Lorazepam 1 mg IV every 4 hours as needed for anxiety/agitation/seizure type activity Zofran 4 mg IV every 6 hours as needed Appreciate neurology recs COVID infection/intractable headache- Given dexamethasone 10 mg IV from the ED Continue dexamethasone 6 mg IV every morning Hypokalemia/hypomagnesemia/dehydration/hypertension- Given KCl 10 mill equivalent IV rider by the ED and magnesium sulfate 1 g IV from the ED Given additional K rider and mag rider NSS + KCl 20 mill equivalents at 60 mL/h x 1 L Hold chlorthalidone Continue lisinopril Replace Admission and Anticipated Discharge Date Admission Date: December 18, 2023 Subjective Patient seen and examined, still complains of headache but much improved compared to yesterday, denies fevers or chills Review of Systems Review of Systems: All systems reviewed are negative, apart from the ones contained in the history. Physical Exam Physical Exam: The patient is awake, alert and oriented 3, well developed and well nourished, normocephalic and atraumatic, lying in bed and in no acute distress. HEENT--PERRL, EOMI, mucous membranes and oropharynx mildly dry Neck--supple. No JVD. No bruits. Thyroid normal, trachea midline, no adenopathy. Heart--normal S1 and S2. No murmurs, rubs or gallops. Lungs--clear bilaterally, no respiratory distress, no accessory muscle use. Abdomen--normal bowel sounds and soft. Extremities--no cyanosis or clubbing. No edema. Dermatologic--normal skin turgor, normal color, no abnormal lymph nodes, no rash. Neurologic--cranial nerves II through XII grossly intact. Rheumatologic--normal range of motion. Psychiatric--normal affect. Results & Data Results & Data Vital Signs (Past 12 Hours) Vital Signs Temp Pulse Pulse Resp BP BP BP 12/18/23 08:36 98.2 F 110 H 19 122/74 12/18/23 06:00 97.9 F 94 H 18 125/80 12/18/23 05:49 98.2 F 85 18 113/70 12/18/23 05:00 100 H 21 12/18/23 05:00 113/70 12/18/23 05:00 113/70 12/18/23 05:00 113/70 12/18/23 04:33 69 9 L 12/18/23 04:30 134/90 12/18/23 04:30 134/90 12/18/23 04:30 98.2 F 94 H 18 134/90 12/18/23 04:09 96 H 18 12/18/23 04:01 117/67 12/18/23 03:57 93 H 19 12/18/23 03:30 88 19 12/18/23 03:30 140/83 12/18/23 03:30 140/83 12/18/23 03:30 140/83 12/18/23 03:30 140/83 12/18/23 03:03 86 19 12/18/23 03:01 121/69 12/18/23 03:01 121/69 12/18/23 03:01 121/69 12/18/23 03:01 121/69 12/18/23 03:00 92 H 20 121/69 12/18/23 02:51 103 H 16 12/18/23 02:39 101 H 11 L 12/18/23 02:30 129/83 12/18/23 02:30 129/83 12/18/23 02:18 92 H 20 12/18/23 02:06 99 H 17 12/18/23 02:00 132/93 12/18/23 02:00 132/93 12/18/23 01:39 85 19 12/18/23 01:30 88 26 H 134/76 12/18/23 01:26 82 12/18/23 01:00 80 15 136/80 12/18/23 01:00 81 23 136/80 12/18/23 00:30 57 L 17 154/99 H 12/18/23 00:00 101 H 20 134/90 12/17/23 23:36 99 H 33 H 142/82 H 12/17/23 23:30 102 H 24 145/89 H Pulse Ox O2 Del Method 12/18/23 08:36 99 Room Air 12/18/23 06:00 96 Room Air 12/18/23 05:49 99 Room Air 12/18/23 05:00 12/18/23 05:00 12/18/23 05:00 12/18/23 05:00 12/18/23 04:33 97 12/18/23 04:30 12/18/23 04:30 12/18/23 04:30 99 Room Air 12/18/23 04:09 12/18/23 04:01 12/18/23 03:57 12/18/23 03:30 100 12/18/23 03:30 12/18/23 03:30 12/18/23 03:30 12/18/23 03:30 12/18/23 03:03 99 12/18/23 03:01 12/18/23 03:01 12/18/23 03:01 12/18/23 03:01 12/18/23 03:00 99 Room Air 12/18/23 02:51 100 12/18/23 02:39 96 12/18/23 02:30 12/18/23 02:30 12/18/23 02:18 93 12/18/23 02:06 96 12/18/23 02:00 12/18/23 02:00 12/18/23 01:39 98 12/18/23 01:30 97 Room Air 12/18/23 01:26 12/18/23 01:00 98 Room Air 12/18/23 01:00 97 Room Air 12/18/23 00:30 100 Room Air 12/18/23 00:00 100 Room Air 12/17/23 23:36 100 Room Air 12/17/23 23:30 99 Room Air PG Care Time/CCT Total # of Minutes Spent Total Time Spent with Patient: Total time spent is greater than 50% in coordination of care (as documented) at patient's floor/unit and/or counseling patient: Coding Level of Care Code 31480 SUB INP/OBS CARE 2/35MIN Diagnoses Syncope, unspecified syncope type R55 Syncope type: unspecified RECEPTION CLERK (ventriculoperitoneal) shunt status Z98.2 Hydrocephalus with operating shunt G91.9 Convulsive syncope R55 Hypokalemia E87.6 Hypomagnesemia E83.42 COVID-19 U07.1 Dehydration E86.0 Hypertension I10 Migraine without aura G43.009 Time Spent (min) 35 (1) Syncope Syncope type: unspecified Qualified Code(s): R55 - Syncope and collapse
--- NOTE | 2023-12-18 12:26 | Electrocardiogram Report ---
Test Reason : Blood Pressure : */* mmHG Vent. Rate : 87 BPM Atrial Rate : 87 BPM P-R Int : 160 ms QRS Dur : 110 ms QT Int : 396 ms P-R-T Axes : 54 58 73 degrees QTcB Int : 476 ms Normal sinus rhythm Normal ECG When compared with ECG of 18-May-2022 16:26, No significant change was found Confirmed by Tono Munguia ([id number]) on 12/18/2023 12:26:27 PM Referred By: REFERRED SELF Confirmed By: Tono Munguia
[2023-12-18 12:46] LABS: Calcium 8.6 mg/dl (8.6-10.3); Creatinine Clr Calc Pharmacy 118.3 ml/min; Est GFR (African American) 102.8 ml/min; Est GFR (Non-African American) 88.7 ml/min; Magnesium 1.9 mg/dl (1.7-2.4); Potassium 3.3 mmol/L (3.5-5.1)
[2023-12-18] MEDS: CALCIUM CARBONATE 500 MG CHEWABLE TAB PO PRN (22:09)
[2023-12-18] MEDS: COUGH DROP (SUGAR FREE) LOZ 24 LOZ/1 BOX BUCCAL PRN (22:44)
[2023-12-18] MEDS: PNEUMOCOCCAL VACCINE (PCV20) 20-VAL CONJ-DIP CRM/PF 0.5 ML SYR IM ONE (23:03)
[2023-12-19 03:27] VITALS: RESP 18
[2023-12-19 06:32] LABS: Basophils # (auto) 0.01 K/uL (0.00-0.20); Basophils % (auto) 0.1 %; Hematocrit (blood only) 33.2 % (42.0-52.0); Hemoglobin 11.6 g/dl (14.0-18.0); Immature Granulocytes # (auto) 0.06 K/uL (0.01-0.20); Immature Granulocytes % (auto) 0.5 %; Lymphocytes # (auto) 1.46 K/uL (1.20-3.40); Lymphocytes % (auto) 11.7 %; Mean Corpuscular Hemoglobin 26.9 pg (25.0-34.0); Mean Corpuscular Hgb Conc 34.9 g/dL (32.0-36.0); Mean Corpuscular Volume 76.9 fL (80.0-100.0); Monocytes # (auto) 1.13 K/uL (0.11-0.59); Neutrophils # (auto) 9.85 K/uL (1.40-6.50); Neutrophils % (auto) 78.7 %; Platelet Count 264 K/uL (130-400); RDW Coefficient of Variation 12.9 % (11.5-14.5); RDW Standard Deviation 35.8 fL (36.4-46.3); Red Blood Count 4.32 M/uL (4.70-6.10); White Blood Count 12.51 K/ul (4.8-10.8)
[2023-12-19 07:03] LABS: Albumin Level 3.9 gm/dl (3.4-5.0); Calcium 8.5 mg/dl (8.6-10.3); Creatinine Clr Calc Pharmacy 116.6 ml/min; Est GFR (African American) 99.5 ml/min; Est GFR (Non-African American) 85.8 ml/min; Magnesium 2.2 mg/dl (1.7-2.4); Phosphorus 2.5 mg/dl (2.5-4.9); Potassium 3.5 mmol/L (3.5-5.1)
--- NOTE | 2023-12-19 10:08 | Hospitalist Progress Note ---
Date of Service December 19, 2023 Assessment & Plan (1) Syncope: (2) BARREL CHARRER (ventriculoperitoneal) shunt status: (3) Hydrocephalus with operating shunt: (4) Convulsive syncope: (5) Hypokalemia: (6) Hypomagnesemia: (7) COVID-19: (8) Dehydration: (9) Hypertension: (10) Migraine without aura: Plan Presented on account of a Syncopal episode, has a history of congenital hydrocephalus status post BARREL CHARRER shunt/headache- CT scan of head shows stable appearing BARREL CHARRER shunt going through left-sided bur holes Chest x-ray with no acute findings BioFire test positive for COVID Feels better today Acetaminophen 1 g IV every 8 hours as needed for mild pain or fever Lorazepam 1 mg IV every 4 hours as needed for anxiety/agitation/seizure type activity Zofran 4 mg IV every 6 hours as needed No need for EEG per neurology Appreciate neurology recs COVID infection/intractable headache- Given dexamethasone 10 mg IV from the ED Continue dexamethasone 6 mg IV every morning Hypokalemia/hypomagnesemia/dehydration/hypertension- Given KCl 10 mill equivalent IV rider by the ED and magnesium sulfate 1 g IV from the ED Given additional K rider and mag rider NSS + KCl 20 mill equivalents at 60 mL/h x 1 L Hold chlorthalidone Continue lisinopril Replace Admission and Anticipated Discharge Date Admission Date: December 18, 2023 Subjective Patient seen and examined, still complains of headache but much improved compared to yesterday, denies fevers or chills, no more syncopal episodes Review of Systems Review of Systems: All systems reviewed are negative, apart from the ones contained in the history. Physical Exam Physical Exam: The patient is awake, alert and oriented 3, well developed and well nourished, normocephalic and atraumatic, lying in bed and in no acute distress. HEENT--PERRL, EOMI, mucous membranes and oropharynx mildly dry Neck--supple. No JVD. No bruits. Thyroid normal, trachea midline, no adenopathy. Heart--normal S1 and S2. No murmurs, rubs or gallops. Lungs--clear bilaterally, no respiratory distress, no accessory muscle use. Abdomen--normal bowel sounds and soft. Extremities--no cyanosis or clubbing. No edema. Dermatologic--normal skin turgor, normal color, no abnormal lymph nodes, no rash. Neurologic--cranial nerves II through XII grossly intact. Rheumatologic--normal range of motion. Psychiatric--normal affect. Results & Data Results & Data Vital Signs (Past 12 Hours) Vital Signs Temp Pulse Pulse Resp BP Pulse Ox O2 Del Method 12/19/23 08:42 97.9 F 79 18 144/85 H 99 Room Air 12/19/23 07:30 79 12/19/23 07:30 Room Air 12/19/23 03:26 97.9 F 83 18 116/76 96 Room Air 12/19/23 00:09 98.4 F 93 H 16 132/77 95 Room Air PG Care Time/CCT Total # of Minutes Spent Total Time Spent with Patient: Total time spent is greater than 50% in coordination of care (as documented) at patient's floor/unit and/or counseling patient: Coding Level of Care Code 53479 SUB INP/OBS CARE 2/35MIN Diagnoses Syncope, unspecified syncope type R55 Syncope type: unspecified BARREL CHARRER (ventriculoperitoneal) shunt status Z98.2 Hydrocephalus with operating shunt G91.9 Convulsive syncope R55 Hypokalemia E87.6 Hypomagnesemia E83.42 COVID-19 U07.1 Dehydration E86.0 Hypertension I10 Migraine without aura G43.009 Time Spent (min) 35 (1) Syncope Syncope type: unspecified Qualified Code(s): R55 - Syncope and collapse
[2023-12-20 06:25] LABS: Basophils # (auto) 0.02 K/uL (0.00-0.20); Basophils % (auto) 0.2 %; Eosinophils # (auto) 0.02 K/uL (0.00-0.50); Eosinophils % (auto) 0.2 %; Hematocrit (blood only) 36.1 % (42.0-52.0); Hemoglobin 12.3 g/dl (14.0-18.0); Immature Granulocytes # (auto) 0.04 K/uL (0.01-0.20); Immature Granulocytes % (auto) 0.4 %; Lymphocytes # (auto) 1.79 K/uL (1.20-3.40); Mean Corpuscular Hemoglobin 26.7 pg (25.0-34.0); Mean Corpuscular Hgb Conc 34.1 g/dL (32.0-36.0); Mean Corpuscular Volume 78.5 fL (80.0-100.0); Monocytes # (auto) 0.84 K/uL (0.11-0.59); Neutrophils # (auto) 7.79 K/uL (1.40-6.50); Neutrophils % (auto) 74.2 %; Platelet Count 256 K/uL (130-400)
[2023-12-20 06:34] LABS: BUN Creatinine Ratio 18.9 (10-20); Calcium 8.7 mg/dl (8.6-10.3); Creatinine Clr Calc Pharmacy 123.1 ml/min; Est GFR (African American) 106.4 ml/min; Est GFR (Non-African American) 91.8 ml/min; Magnesium 2.4 mg/dl (1.7-2.4); Phosphorus 2.8 mg/dl (2.5-4.9); Potassium 3.7 mmol/L (3.5-5.1)
[2023-12-20 08:53] VITALS: TEMP 98.2
--- NOTE | 2023-12-20 11:01 | Discharge Summary ---
Date of Service December 20, 2023 Admission HPI Per Admitting Provider The patient is a 32-year-old male with a past medical history of left frontal SWITCH ADJUSTER shunt for treatment of congenital hydrocephalus, history of migraine headaches, history of convulsive syncope, and hypertension. He reports feeling unwell for the past 4 days, and then today was found as noted above. He reports these syncopal episodes have occurred whenever he is feeling unwell for other reasons such as viral processes. Admission Exam (Per Admitting) Constitutional The patient is awake, alert and oriented 3, well developed and well nourished, normocephalic and atraumatic, lying in bed and in no acute distress. HEENT--PERRL, EOMI, mucous membranes and oropharynx mildly dry Neck--supple. No JVD. No bruits. Thyroid normal, trachea midline, no adenopathy. Heart--normal S1 and S2. No murmurs, rubs or gallops. Lungs--clear bilaterally, no respiratory distress, no accessory muscle use. Abdomen--normal bowel sounds and soft. Extremities--no cyanosis or clubbing. No edema. Dermatologic--normal skin turgor, normal color, no abnormal lymph nodes, no rash. Neurologic--cranial nerves II through XII grossly intact. Rheumatologic--normal range of motion. Psychiatric--normal affect. Discharge Data Consultations 12/18/23 01:59 ED Decision to Admit Stat 12/18/23 05:50 Consult Neurology Routine Hospital Course (1) Syncope: (2) SWITCH ADJUSTER (ventriculoperitoneal) shunt status: (3) Hydrocephalus with operating shunt: (4) Convulsive syncope: (5) Hypokalemia: (6) Hypomagnesemia: (7) COVID-19: (8) Dehydration: (9) Hypertension: (10) Migraine without aura: Plan Presented on account of a Syncopal episode, has a history of congenital hydrocephalus status post SWITCH ADJUSTER shunt/headache- CT scan of head shows stable appearing SWITCH ADJUSTER shunt going through left-sided bur holes Chest x-ray with no acute findings BioFire test positive for COVID Feels better today Acetaminophen 1 g IV every 8 hours as needed for mild pain or fever Lorazepam 1 mg IV every 4 hours as needed for anxiety/agitation/seizure type activity Zofran 4 mg IV every 6 hours as needed No need for EEG per neurology Appreciate neurology recs COVID infection/intractable headache- Given dexamethasone 10 mg IV from the ED Continue dexamethasone 6 mg IV every morning Hypokalemia/hypomagnesemia/dehydration/hypertension- Given KCl 10 mill equivalent IV rider by the ED and magnesium sulfate 1 g IV from the ED Given additional K rider and mag rider NSS + KCl 20 mill equivalents at 60 mL/h x 1 L Hold chlorthalidone Continue lisinopril Replace Coding Level of Care Code 43360 INP/OBS DISCH >30 MIN Diagnoses Syncope, unspecified syncope type R55 Syncope type: unspecified SWITCH ADJUSTER (ventriculoperitoneal) shunt status Z98.2 Hydrocephalus with operating shunt G91.9 Convulsive syncope R55 Hypokalemia E87.6 Hypomagnesemia E83.42 COVID-19 U07.1 Dehydration E86.0 Hypertension I10 Migraine without aura G43.009 Time Spent (min) 35
[2023-12-20 12:58] VITALS: BP 109/65; PULSE 79; O2SAT 97
== END 2023-12-20 13:51 | disposition home or self-care (01) | DRG 179 ==
LOC: 4W 21:00 → ED 21:00 → SUATTDRO 12-18 02:38 → 4W 12-18 05:49